=== PATIENT | female | born 1960 | race African-American/Black ===

== ENCOUNTER 2016-09-23 19:33 | Inpatient (IN) | payer MEDICARE, OTHER ==
[~2016-09-23] VITALS: Ht 170.2 cm; Wt 78.7 kg
[~2016-09-23 19:33] MED LIST: ASPI-482 PO; BYSTOLIC20 MG PO; FLUT16SP NS; FLUT1DIS3 INH; FURO-69 PO; LISI10TA2 PO
[2016-09-23] MEDS ORDERED: ALBUTEROL SULFATE 2.5 MG/3 ML NEBU. CONT NEB ONE (19:45)
[2016-09-23] MEDS ORDERED: methylPREDNISolone SOD SUCC PF 125 MG/2 ML VIAL. IV ONE (19:45)
[2016-09-23] MEDS ORDERED: ALBUTEROL SULFATE 2.5 MG/3 ML NEBU. ONE (19:48)
[2016-09-23 19:57] LABS: BASO % 1 % (0-3); EOS % 2 % (0-3); HEMOGLOBIN 8.7 g/dL (12.0-15.5); LYMPH # 0.8 x10^3/uL (1.0-4.8); LYMPH % 13 % (24-48); MEAN CORPUSCULAR HEMOGLOBIN 24 pg (25-35); MEAN CORPUSCULAR HGB CONC 32 g/dL (31-37); MEAN CORPUSCULAR VOLUME 74 fL (79-100); MONO % 18 % (0-9); NEUT % 66 % (31-73); PLATELET COUNT 190 x10^3/uL (140-400); RED BLOOD COUNT 3.67 x10^6/uL (3.50-5.40); RED CELL DISTRIBUTION WIDTH 19.9 % (11.5-14.5); WHITE BLOOD COUNT 6.4 x10^3/uL (4.0-11.0)
[2016-09-23 20:14] LABS: CALCIUM 8.4 mg/dL (8.5-10.1); CREATININE 1.5 mg/dL (0.6-1.0); GFR 43.5; POTASSIUM 3.5 mmol/L (3.5-5.1)
[2016-09-23 20:26] LABS: OBC FLU VALID
[2016-09-23 20:28] LABS: ALBUMIN 3.2 g/dL (3.4-5.0); ALBUMIN/GLOBULIN RATIO 0.7 (1.0-1.7); TOTAL BILIRUBIN 0.5 mg/dL (0.2-1.0); TOTAL PROTEIN 7.9 g/dL (6.4-8.2)
[2016-09-23] MEDS ORDERED: ACETAMINOPHEN 500 MG TABLET PO ONE (20:30)
[2016-09-23 20:43] LABS: % BASOS 1 % (0-3)
[2016-09-23 20:46] LABS: ANISOCYTOSIS SLIGHT; HYPOCHROMIA MOD; MICROCYTOSIS MOD; PLT ESTIMATE ADEQUATE (ADEQUATE); POLYCHROMASIA SLIGHT; TOXIC GRANULATION SLIGHT
--- NOTE | 2016-09-23 20:58 | PHYS DOC ---
Past Medical History Past Medical History: COPD, Hypertension Past Surgical History: Alcohol Use: None Drug Use: None Adult General Chief Complaint Chief Complaint: SHORTNESS OF BREATH HPI HPI Patient is a 56 year old female brought from home by ambulance with the complaint of shortness of air. Patient states she's been short of air yesterday and today. She is on oxygen at home, she states anywhere from 4-10 L depending on her symptoms. She also takes breathing treatments at home. She was given a nebulized treatment in route by EMS. Patient states her cough is about usual for her. She denies chest pain. Review of Systems Review of Systems Constitutional: Denies fever or chills [] Eyes: Denies change in visual acuity, redness, or eye pain [] HENT: Denies nasal congestion or sore throat [] Respiratory: As in history of present illness Cardiovascular: No chest pain GI: Denies abdominal pain, nausea, vomiting, bloody stools or diarrhea [] : Denies dysuria or hematuria [] Musculoskeletal: Denies back pain or joint pain [] Integument: Denies rash or skin lesions [] Neurologic: Denies headache, focal weakness or sensory changes [] Current Medications Current Medications Current Medications Medications (Trade) Dose Ordered Sig/[place] Start Time Stop Time Status Last Admin Dose Admin Acetaminophen 1000 mg 1,000 mg 1X ONCE 09/23/16 20:30 09/23/16 20:31 DC 09/23/16 20:25 1,000 MG Albuterol Sulfate (Ventolin Neb Soln) 10 mg 1X ONCE 09/23/16 19:45 09/23/16 19:50 DC 09/23/16 20:00 10 MG Albuterol/ Ipratropium (Duoneb) 3 ml RTQID 09/24/16 08:00 09/25/16 07:59 Levofloxacin/ Dextrose (LEVAQUIN 750mg PREMIX) 150 ml @ 100 mls/hr 1X ONCE 09/23/16 21:00 09/23/16 22:29 09/23/16 21:16 100 MLS/HR Methylprednisolone Sodium Succinate (Solu-Medrol 125mg Vial) 125 mg 1X ONCE 09/23/16 19:45 09/23/16 19:50 DC 09/23/16 19:59 125 MG Allergies Allergies Allergies Coded Allergies Type Severity Reaction Last Updated Verified No Known Drug Allergies 06/04/14 No Physical Exam Physical Exam Constitutional: 56-year-old female on a nonrebreather mask with a sat in the mid 80s at best on nonrebreather mask. She is tachypneic, but alert, mentating normally HENT: Normocephalic, atraumatic, bilateral external ears normal, nose normal. [] Eyes: conjunctiva normal, no discharge. [] Neck: Normal range of motion, no stridor. [] Cardiovascular:Heart rate regular rhythm, no murmur [] Lungs & Thorax: Moderately decreased breath sounds throughout with prolonged expiratory phase and expiratory wheezes throughout Abdomen: Bowel sounds normal, soft, no tenderness, no masses, no pulsatile masses. [] Skin: Warm, dry, no erythema, no rash. [] Extremities: No tenderness, no cyanosis, no clubbing, ROM intact, no edema. [] Neurologic: Alert and oriented X 3, normal motor function, normal sensory function, no focal deficits noted. [] Current Patient Data Vital Signs Vital Signs Date Time Temp Pulse Resp B/P Pulse Ox O2 Delivery O2 Flow Rate FiO2 09/23/16 19:54 92 NonRebreather Mask 15.0 09/23/16 19:33 103.1 94 30 126/74 103.1 Lab Values Laboratory Tests Test 09/23/16 19:46 09/23/16 20:00 White Blood Count 6.4x10^3/uL (4.0-11.0) Red Blood Count 3.67x10^6/uL (3.50-5.40) Hemoglobin 8.7g/dL (12.0-15.5) L Hematocrit 27.0% (36.0-47.0) L Mean Corpuscular Volume 74fL (79-100) L Mean Corpuscular Hemoglobin 24pg (25-35) L Mean Corpuscular Hemoglobin Concent 32g/dL (31-37) Red Cell Distribution Width 19.9% (11.5-14.5) H Platelet Count 190x10^3/uL (140-400) Neutrophils (%) (Auto) 66% (31-73) Lymphocytes (%) (Auto) 13% (24-48) L Monocytes (%) (Auto) 18% (0-9) H Eosinophils (%) (Auto) 2% (0-3) Basophils (%) (Auto) 1% (0-3) Neutrophils # (Auto) 4.2x10^3uL (1.8-7.7) Lymphocytes # (Auto) 0.8x10^3/uL (1.0-4.8) L Monocytes # (Auto) 1.2x10^3/uL (0.0-1.1) H Eosinophils # (Auto) 0.1x10^3/uL (0.0-0.7) Basophils # (Auto) 0.0x10^3/uL (0.0-0.2) Segmented Neutrophils % 70% (35-66) H Band Neutrophils % 2% (0-9) Lymphocytes % 14% (24-48) L Monocytes % 13% (0-10) H Basophils % 1% (0-3) Toxic Granulation Slight Platelet Estimate Adequate (ADEQUATE) Polychromasia Slight Hypochromasia Mod Anisocytosis Slight Microcytosis Mod Sodium Level 142mmol/L (136-145) Potassium Level 3.5mmol/L (3.5-5.1) Chloride Level 104mmol/L (98-107) Carbon Dioxide Level 26mmol/L (21-32) Anion Gap 12 (6-14) Blood Urea Nitrogen 13mg/dL (7-20) Creatinine 1.5mg/dL (0.6-1.0) H Estimated GFR (Cockcroft-Gault) 43.5 BUN/Creatinine Ratio 9 (6-20) Glucose Level 95mg/dL (70-99) Calcium Level 8.4mg/dL (8.5-10.1) L Total Bilirubin 0.5mg/dL (0.2-1.0) Aspartate Amino Transferase (AST) 12U/L (15-37) L Alanine Aminotransferase (ALT) 11U/L (14-59) L Alkaline Phosphatase 88U/L (46-116) Troponin I Quantitative 0.071ng/mL (0.000-0.055) EA-Lei-M-Type Natriuretic Peptide 1330pg/mL (0-124) H Total Protein 7.9g/dL (6.4-8.2) Albumin 3.2g/dL (3.4-5.0) L Albumin/Globulin Ratio 0.7 (1.0-1.7) L Influenza Type A Antigen Negative (NEGATIVE) Influenza Type B Antigen Negative (NEGATIVE) Laboratory Tests 09/23/16 19:46 Laboratory Tests 09/23/16 19:46 EKG EKG 12-lead EKG read by me. Sinus tachycardia. Heart rate 110. There are no acute ST or T wave changes indicative of ischemia or infarction. No STEMI. 1938 [] Radiology/Procedures Radiology/Procedures One view portable chest x-ray read by me. Bibasilar infiltrates heart size borderline. [] Course & Med Decision Making Course & Med Decision Making Pertinent Labs and Imaging studies reviewed. (See chart for details) 56 showed female with a history of COPD, oxygen dependent at home, presents hypoxic on nonrebreather mask after 1 albuterol treatment by EMS. We started a hour-long continuous nebulized albuterol treatment which she tolerated well. Although she was fairly hypoxic and somewhat dyspneic, she remained alert and mentating normally. In fact, she was making phone calls while taking her continuous neb treatment. Chest x-ray does show bibasilar infiltrates, cultures were done and antibiotics were started. Her troponin is a little elevated, I ordered repeat, but this may be simply strain. She was given IV steroids for COPD exacerbation. I discussed the case with Dr. calhoun, [facility] medicine. He will admit the patient. I wrote bridge orders. [] Dragon Disclaimer Dragon Disclaimer This electronic medical record was generated, in whole or in part, using a voice recognition dictation system. Departure Departure Impression: Primary Impression: Pneumonia Additional Impression: COPD exacerbation Disposition: ADMITTED INPATIENT Admitting Physician: Marah Calhoun Condition: STABLE Referrals: NO PCP (PCP) Problem Qualifiers MAGALYS LR MD Sep 23, 2016 20:58
[2016-09-23 22:22] VITALS: BP 92/44
[2016-09-23] MEDS ORDERED: CARV12.5 PO (22:31)
[2016-09-23] MEDS ORDERED: PROAIR HFA8.5 GM INH (22:31)
[2016-09-23] MEDS ORDERED: PANT40TA5 PO (22:31)
--- NOTE | 2016-09-23 22:40 | PDOC1 ---
History and Physical Date of Admission Date of Admission DATE: 09/23/16 TIME: 22:38 Identification/Chief Complaint Chief Complaint cough, dyspnea Source Source: Chart review, Patient History of Present Illness History of Present Illness Ms Harris, is a 56 year old female brought from home by ambulance with the complaint of shortness of air. Initially thought to have COPD, pt revealed she takes Adempas for Primary PULM HTN. She has been marked dyspneic for 24 hours, about, and does feel improved after interventions in the ER less coughing, sputum diminished, no chest pain, no pleurisy s/p mult nebs given in the ER Past Medical History Cardiovascular: HTN, Hyperlipidemia Pulmonary: No pertinent hx, Other (PULM HTN) CENTRAL NERVOUS SYSTEM: Other GI: No pertinent hx Heme/Onc: No pertinent hx Hepatobiliary: No pertinent hx Psych: No pertinent hx Musculoskeletal: Osteoarthritis Rheumatologic: No pertinent hx Infectious disease: No pertinent hx Renal/: No pertinent hx Endocrine: No pertinent hx Past Surgical History Past Surgical History: Family History Family History: No Significant, Hypertension Social History ALCOHOL: none Drugs: None Current Problem List Problem List Problems Medical Problems: (1) COPD exacerbation Status: Acute (2) Pneumonia Status: Acute Problems: Current Medications Current Medications Current Medications Albuterol Sulfate (Ventolin Neb Soln) 2.5 mg STK-MED ONCE .ROUTE ; Start at 19:48; Stop 09/23/16 at 19:49; Status DC Methylprednisolone Sodium Succinate (Solu-Medrol 125mg Vial) 125 mg 1X ONCE IV Last administered on 09/23/16 19:59; Start 09/23/16 at 19:45; Stop 09/23/16 at 19:50; Status DC Albuterol Sulfate (Ventolin Neb Soln) 10 mg 1X ONCE CONT NEB Last administered on 09/23/16 20:00; Start 09/23/16 at 19:45; Stop 09/23/16 at 19:50; Status DC Acetaminophen 1000 mg 1,000 mg 1X ONCE PO Last administered on 09/23/16 20:25 ; Start 09/23/16 at 20:30; Stop 09/23/16 at 20:31; Status DC Levofloxacin/ Dextrose (LEVAQUIN 750mg PREMIX) 150 ml @ 100 mls/hr 1X ONCE IV Last administered on 2/8/17at 21:16; Start 09/23/16 at 21:00; Stop 09/23/16 at 22:29; Status DC Albuterol/ Ipratropium (Duoneb) 3 ml RTQID NEB ; Start 09/24/16 at 08:00; Stop at 07:59 Active Scripts Active Reported Proair Hfa Inhaler (Albuterol Sulfate) 8.5 Gm Hfa.aer.ad 2 Puff INH PRN DAILY PRN Pantoprazole Sodium 40 Mg Tablet.dr 1 Tab PO DAILY Coreg (Carvedilol) 12.5 Mg Tablet 1 Tab PO BID Aspir 81 (Aspirin) 81 Mg Tablet.dr 81 Mg PO Lasix (Furosemide) 20 Mg Tablet 40 Mg PO DAILY Allergies Allergies: Coded Allergies: No Known Drug Allergies (Unverified , 06/04/14) ROS General: YES: Chills, Fatigue, Malaise, No: Appetite, Night Sweats, Other PSYCHOLOGICAL ROS: No: Anxiety, Behavioral Disorder, Concentration difficultie , Decreased libido, Depression, Disorientation, Hallucinations, Hostility, Irritablity, Memory difficulties, Mood Swings, Obsessive thoughts, Other, Physical abuse, Sexual abuse, Sleep disturbances, Suicidal ideation HEENT: No: Epistaxis, Heacaches, Hearing change, Nasal congestion, Nasal discharge, Oral lesions, Other, Sinus pain, Sneezing, Snoring, Sore Throat, Tinnitus, Vertigo, Visual Changes, Vocal changes Respiratory: YES: Cough, SOB with excertion, Shortness of breath, No: Hemoptysis, Orthopnea, Other, Pleuritic Pain, Sputum Changes, Stridor, Tachypnea, Wheezing Cardiovascular: No Chest Pain, No Edema, No Lt Headedness, No Orthopnea, No Other, No Palpitations, No Paroxysmal Noc. Dyspnea Gastrointestinal: Yes Nausea, No Abdominal Pain, No Constipation, No Diarrhea, No Hematochezia, No Melena, No Other, No Vomiting Genitourinary: No , No , No , No , No , No , No , No Discharge, No Dysuria, No Flank Pain, No Frequency, No Hematuria, No Incontinence, No Other, No Pain, No Retention, No Urgency Musculoskeletal: No Gait Disturbance, No Joint Pain, No Joint Stiffness, No Joint Swelling, No Muscle Pain, No Muscular Weakness, No Other, No Pain In:, No Swelling In: Neurological: No Behavorial Changes, No Bowel/Bladder ControlChng, No Confusion , No Dizziness, No Gait Disturbance, No Headaches, No Impaired Coord/balance, No Memory Loss, No Numbness/Tingling, No Other, No Seizures, No Speech Problems , No Tremors, No Visual Changes, No Weakness Skin: No Acne, No Dry Skin, No Eczema, No Hair Changes, No Lumps, No Mole Changes, No Mottling, No Nail Changes, No Other, No Pruritus, No Rash, No Skin Lesion Changes Physical Exam General: Alert, Oriented X3, Cooperative HEENT: Atraumatic, PERRLA Lungs: Other (low air movement, ) Abdomen: Normal bowel sounds, Soft Rectal Exam: not examined Extremities: No clubbing, No edema, Normal pulses Skin: No rashes, No breakdown, No significant lesion Neuro: Normal speech, Normal tone, Sensation intact, Cranial nerves 3-12 NL Psych/Mental Status: Mood NL Vitals Vitals Vital Signs Date Time Temp Pulse Resp B/P Pulse Ox O2 Delivery O2 Flow Rate FiO2 09/23/16 22:22 99.3 86 24 92/44 90 Venturi Mask 10.0 99.3 Labs Labs Laboratory Tests Test 09/23/16 19:46 09/23/16 20:00 White Blood Count 6.4x10^3/uL (4.0-11.0) Red Blood Count 3.67x10^6/uL (3.50-5.40) Hemoglobin 8.7g/dL (12.0-15.5) Hematocrit 27.0% (36.0-47.0) Mean Corpuscular Volume 74fL (79-100) Mean Corpuscular Hemoglobin 24pg (25-35) Mean Corpuscular Hemoglobin Concent 32g/dL (31-37) Red Cell Distribution Width 19.9% (11.5-14.5) Platelet Count 190x10^3/uL (140-400) Neutrophils (%) (Auto) 66% (31-73) Lymphocytes (%) (Auto) 13% (24-48) Monocytes (%) (Auto) 18% (0-9) Eosinophils (%) (Auto) 2% (0-3) Basophils (%) (Auto) 1% (0-3) Neutrophils # (Auto) 4.2x10^3uL (1.8-7.7) Lymphocytes # (Auto) 0.8x10^3/uL (1.0-4.8) Monocytes # (Auto) 1.2x10^3/uL (0.0-1.1) Eosinophils # (Auto) 0.1x10^3/uL (0.0-0.7) Basophils # (Auto) 0.0x10^3/uL (0.0-0.2) Segmented Neutrophils % 70% (35-66) Band Neutrophils % 2% (0-9) Lymphocytes % 14% (24-48) Monocytes % 13% (0-10) Basophils % 1% (0-3) Toxic Granulation Slight Platelet Estimate Adequate (ADEQUATE) Polychromasia Slight Hypochromasia Mod Anisocytosis Slight Microcytosis Mod Sodium Level 142mmol/L (136-145) Potassium Level 3.5mmol/L (3.5-5.1) Chloride Level 104mmol/L (98-107) Carbon Dioxide Level 26mmol/L (21-32) Anion Gap 12 (6-14) Blood Urea Nitrogen 13mg/dL (7-20) Creatinine 1.5mg/dL (0.6-1.0) Estimated GFR (Cockcroft-Gault) 43.5 BUN/Creatinine Ratio 9 (6-20) Glucose Level 95mg/dL (70-99) Calcium Level 8.4mg/dL (8.5-10.1) Total Bilirubin 0.5mg/dL (0.2-1.0) Aspartate Amino Transf (AST/SGOT) 12U/L (15-37) Alanine Aminotransferase (ALT/SGPT) 11U/L (14-59) Alkaline Phosphatase 88U/L (46-116) Troponin I Quantitative 0.071ng/mL (0.000-0.055) OV-Iep-O-Type Natriuretic Peptide 1330pg/mL (0-124) Total Protein 7.9g/dL (6.4-8.2) Albumin 3.2g/dL (3.4-5.0) Albumin/Globulin Ratio 0.7 (1.0-1.7) Influenza Type A Antigen Negative (NEGATIVE) Influenza Type B Antigen Negative (NEGATIVE) Laboratory Tests Test 09/23/16 19:46 09/23/16 20:00 White Blood Count 6.4x10^3/uL (4.0-11.0) Red Blood Count 3.67x10^6/uL (3.50-5.40) Hemoglobin 8.7g/dL (12.0-15.5) Hematocrit 27.0% (36.0-47.0) Mean Corpuscular Volume 74fL (79-100) Mean Corpuscular Hemoglobin 24pg (25-35) Mean Corpuscular Hemoglobin Concent 32g/dL (31-37) Red Cell Distribution Width 19.9% (11.5-14.5) Platelet Count 190x10^3/uL (140-400) Neutrophils (%) (Auto) 66% (31-73) Lymphocytes (%) (Auto) 13% (24-48) Monocytes (%) (Auto) 18% (0-9) Eosinophils (%) (Auto) 2% (0-3) Basophils (%) (Auto) 1% (0-3) Neutrophils # (Auto) 4.2x10^3uL (1.8-7.7) Lymphocytes # (Auto) 0.8x10^3/uL (1.0-4.8) Monocytes # (Auto) 1.2x10^3/uL (0.0-1.1) Eosinophils # (Auto) 0.1x10^3/uL (0.0-0.7) Basophils # (Auto) 0.0x10^3/uL (0.0-0.2) Segmented Neutrophils % 70% (35-66) Band Neutrophils % 2% (0-9) Lymphocytes % 14% (24-48) Monocytes % 13% (0-10) Basophils % 1% (0-3) Toxic Granulation Slight Platelet Estimate Adequate (ADEQUATE) Polychromasia Slight Hypochromasia Mod Anisocytosis Slight Microcytosis Mod Sodium Level 142mmol/L (136-145) Potassium Level 3.5mmol/L (3.5-5.1) Chloride Level 104mmol/L (98-107) Carbon Dioxide Level 26mmol/L (21-32) Anion Gap 12 (6-14) Blood Urea Nitrogen 13mg/dL (7-20) Creatinine 1.5mg/dL (0.6-1.0) Estimated GFR (Cockcroft-Gault) 43.5 BUN/Creatinine Ratio 9 (6-20) Glucose Level 95mg/dL (70-99) Calcium Level 8.4mg/dL (8.5-10.1) Total Bilirubin 0.5mg/dL (0.2-1.0) Aspartate Amino Transf (AST/SGOT) 12U/L (15-37) Alanine Aminotransferase (ALT/SGPT) 11U/L (14-59) Alkaline Phosphatase 88U/L (46-116) Troponin I Quantitative 0.071ng/mL (0.000-0.055) GC-Twj-I-Type Natriuretic Peptide 1330pg/mL (0-124) Total Protein 7.9g/dL (6.4-8.2) Albumin 3.2g/dL (3.4-5.0) Albumin/Globulin Ratio 0.7 (1.0-1.7) Influenza Type A Antigen Negative (NEGATIVE) Influenza Type B Antigen Negative (NEGATIVE) VTE Prophylaxis Ordered VTE Prophylaxis Devices: No VTE Pharmacological Prophylaxi: Yes Assessment/Plan Assessment/Plan acute respiratory distress on chronic hypoxic pulm failure bibasilar infiltrates, treat as Pneumonia, Levaquin sepsis PRIMARY Pulm htn, consult Dr. Machado, chronic hypoxic 4-10 liters baseline. Pt Takes Adempas TID and Luteris daily, we do not have these meds, discussed with pharmacy, will ask Dr. Machado opinion on treatment, pt will be able to provide her meds in the AM CHF, chronic diastolic failure, troponinemia, recheck with lipids, consult Cardiology team mild malnutrition CKD 3 anemia of CKD, microcytic, check iron level Admit LEON KOCH MD Sep 23, 2016 22:40
[2016-09-23] MEDS ORDERED: POTASSIUM CHLORIDE 20 MEQ TABLET.ER. PO ONE (23:00)
[2016-09-24] VITALS (16 sets, daily range): BP systolic 81–132; BP diastolic 48–73
[2016-09-24] MEDS: SILDENAFIL CITRATE 20 MG TABLET. PO SCH ×3 (00:22→14:00)
[2016-09-24] MEDS: ASPIRIN ENTERIC COATED 81 MG TABLET.DR. PO SCH ×2 (00:22→09:57)
[2016-09-24] MEDS: IV NORMAL SALINE 1000ML BAG 1,000 ML IV SCH ×3 (00:53→04:34)
--- NOTE | 2016-09-24 00:57 | ACF ---
Admission Forms Criteria COPD Clinical Indications for Admission to Inpatient Care (Place 'X' for any and all applicable criteria): Admission is indicated for ANY ONE of the following (1)(2)(3): [X]I. Acute exacerbation by high-risk comorbidity (e.g., pneumonia, dysrhythmia, heart failure, pleural effusion, pneumothorax) or severe underlying COPD (e.g., steroid dependent) [ ]II. Inpatient admission required rather than observation care (see Chronic Obstructive Pulmonary Disease: Observation Care) because of ANY ONE of the following: [ ]a) New or pre-existing signs or symptoms of COPD (eg, dyspnea or Tachypnea at rest or with minimal activity) that persist despite outpatient and observation care treatment [ ]b) New-onset hypoxemia (room air SaO2 less than 90%, PO2 less than 60 mm Hg (8.0 kPa)) that persists despite outpatient and observation care treatment [ ]c) Worsening of pre-existing hypoxemia (eg, new or increased requirement for supplemental oxygen to maintain oxygenation at baseline level) that persists despite outpatient and observation care treatment, with oxygen treatment needs performable only in acute inpatient setting [ ]d) Hypercarbia (PCO2 greater than 40 mm Hg (5.3 kPa))-induced respiratory acidosis (pH less than 7.35) that persists despite outpatient and observation care treatment [ ]e) Supplemental oxygen or respiratory treatments for over 24 hours that are performable only in acute inpatient setting [ ]f) Chest tube placement with active evacuation (e.g., suction, drainage) (5) [ ]g) Other condition, treatment or monitoring requiring inpatient admission [ ]III. Planned invasive surgical or diagnostic procedures requiring acute- care hospitalization [ ]IV. Acute respiratory failure (e.g., uncompensated hypercarbia, severe hypoxemia) [ ]V. Severe comorbid condition (e.g., severe steroid myopathy, acute vertebral fracture) that has acutely worsened pulmonary function [ ]. Confusion state, lethargy, obtundation, stupor or coma Extended stay beyond goal length of stay may be needed for (31)(32): [ ]a ) Respiratory Failure. [ ]b) Severe or persisting hypoxemia or hypercarbia [ ]c) Severe or persistent dyspnea [ ]d) Comorbidities (e.g. chronic heart failure, atrial fibrillation with rapid response, pneumonia) [ ]e) Malnutrition The original [facility] content created by [facility] has been revised. The portions of the content which have been revised are identified through the use of italic text or in bold, and [facility] has neither reviewed nor approved the modified material. All other unmodified content is copyright [facility]. Please see references footnoted in the original [facility] edition 2016 Admission Criteria Met?: Yes UDAY ZULUAGA Sep 24, 2016 00:57
[2016-09-24] MEDS ORDERED: INFLUENZA VAX SCREEN BY RX. MC ONE (01:30)
[2016-09-24] MEDS ORDERED: PNEUMOCOCCAL VAX SCREEN BY RX. MC ONE (01:30)
[2016-09-24] MEDS: LEVOFLOXACIN 750 MG TABLET. PO SCH (05:47)
--- NOTE | 2016-09-24 06:25 | EKG ---
[facility] [address] [place] [address] Test Date: 2016-09-23 Test Time: 19:38:47 Pat Name: MARY LAWRENCE Department: Room: [facility] Gender: F Results Technician: : 1960 Requested By: MAGALYS LR Order Number: [id number] Reading MD: Valentina Bains Measurements Intervals Cut Off Rate: 110 P: 43 [place]: 150 QRS: 90 QRSD: 94 T: 52 QT: 346 QTc: 474 Interpretive Statements SINUS TACHYCARDIA LEFT ATRIAL ABNORMALITY ABNORMAL ECG Electronically Signed On 09-27-2016 15:40:50 AIRPLANE TECHNICIAN by Valentina Bains
[2016-09-24] MEDS: ALBUTEROL SULFATE 2.5 MG/3 ML NEBU. NEB PRN (06:48)
[2016-09-24 07:03] LABS: HCO3 ABG 23 mmol/L (21-28); SAT O2 ABG 80 % (92-99)
[2016-09-24 07:04] LABS: PCO2 ABG 41 mmHg (35-46); PH ABG 7.36 (7.35-7.45); PO2 ABG 51 mmHg (75-108)
[2016-09-24] MEDS ORDERED: IV NORMAL SALINE 500ML BAG 500 ML IV ONE ×2 (07:30→10:00)
[2016-09-24] MEDS: BUDESONIDE 0.5 MG/2 ML NEBU NEB SCH ×2 (07:31→19:49)
[2016-09-24 07:48] LABS: BASO % 0 % (0-3); EOS % 0 % (0-3); HEMATOCRIT 26.2 % (36.0-47.0); LYMPH # 0.5 x10^3/uL (1.0-4.8); LYMPH % 11 % (24-48); MEAN CORPUSCULAR HEMOGLOBIN 23 pg (25-35); MEAN CORPUSCULAR HGB CONC 31 g/dL (31-37); MEAN CORPUSCULAR VOLUME 75 fL (79-100); MONO % 2 % (0-9); NEUT % 87 % (31-73); PLATELET COUNT 179 x10^3/uL (140-400); RED CELL DISTRIBUTION WIDTH 19.9 % (11.5-14.5); WHITE BLOOD COUNT 4.7 x10^3/uL (4.0-11.0)
--- NOTE | 2016-09-24 07:50 | RAD ---
Portable AP upright view CXR: Clinical indications: Shortness of air. COPD and hypertension. Comparison: October 06, 2007 and June 04, 2014.. Findings: An old granuloma of the right lateral lung base is seen which is stable. There is a new finding of bibasilar lung infiltrates denser on the left side. No pleural effusion or pneumothorax is seen. Heart size and mediastinum are stable. Impression: Bibasilar lung infiltrates..
[2016-09-24] MEDS ORDERED: IPRATRPIUM/ALBUTEROL 0.5/2.5MG 3 ML NEBU. NEB SCH (08:00)
[2016-09-24] MEDS: CARVEDILOL 12.5 MG TABLET PO SCH ×2 (08:00→17:00)
[2016-09-24 08:28] LABS: % SAT IRON 5 % (15-34); ALBUMIN 2.8 g/dL (3.4-5.0); ALBUMIN/GLOBULIN RATIO 0.7 (1.0-1.7); CALCIUM 7.9 mg/dL (8.5-10.1); CREATININE 1.2 mg/dL (0.6-1.0); GFR 56.2; IRON,SERUM 13 ug/dL (50-170); POTASSIUM 4.1 mmol/L (3.5-5.1); TOTAL BILIRUBIN 0.3 mg/dL (0.2-1.0); TOTAL PROTEIN 6.6 g/dL (6.4-8.2)
[2016-09-24 08:33] LABS: CHOLESTEROL/HDL RATIO 3.7
[2016-09-24] MEDS ORDERED: FLU VACC QUAD 2016-17 (36MOS+)/PF 0.5 ML SYRINGE. VAX IM ONE (09:00)
[2016-09-24] MEDS ORDERED: PNEUMOC CONJ VACC 23-VALENT 0.5 ML VIAL. VAX IM ONE (09:00)
[2016-09-24] MEDS ORDERED: FUROSEMIDE 40 MG TABLET PO SCH (09:00)
[2016-09-24] MEDS: LETAIRIS 10 MG PO SCH (09:00)
[2016-09-24] MEDS: PREDNISONE 20 MG TABLET PO SCH (09:57)
[2016-09-24] MEDS: PANTOPRAZOLE 40 MG TABLET. PO SCH (09:58)
[2016-09-24] MEDS: IPRATRPIUM/ALBUTEROL 0.5/2.5MG 3 ML NEBU. NEB SCH ×3 (10:49→19:49)
--- NOTE | 2016-09-24 10:56 | CONS ---
DATE OF CONSULTATION: ATTENDING PHYSICIAN: Dr. Marah Huerta. REASON FOR CONSULTATION: Respiratory failure. HISTORY OF PRESENT ILLNESS: The patient is a 56-year-old female who is obese and has been followed at for primary pulmonary hypertension. She takes medicine ____ Adempas and also on Letairis. The patient was brought into the hospital with progressive dyspnea for the last 24 hours. She also had contact with sick family members. She had mild cough. No chest pains. No leg edema. The patient had a fever of 103 on admission. Chest x-ray showed diffuse interstitial infiltrates, mostly in the lower lobes. There is evidence of pulmonary hypertension. Her influenza screen was negative. She has no history of sleep apnea. No history of thromboembolic disease. She does not know whether she has a diagnosis of interstitial lung disease or any connective tissue disease. I am awaiting for records from . PAST MEDICAL HISTORY: History of hypertension and hyperlipidemia. Primary pulmonary hypertension, osteoarthritis. PAST SURGICAL HISTORY: . FAMILY HISTORY: Noncontributory to lungs. ALLERGIES: None. MEDICATIONS: Reviewed as listed in the MRAD. REVIEW OF SYSTEMS: Twelve-point system obtained. Pertinent positives discussed in my history of present illness, otherwise noncontributory. All systems that were negative were reviewed as well. PHYSICAL EXAMINATION: GENERAL: She is comfortable. VITAL SIGNS: Blood pressure of 102 systolic and has been running low in the 90s. Her T-max was 103.1, pulse ox is 94% on 50% BiPAP. HEENT: Sclerae nonicteric. NECK: Supple. LUNGS: Diminished breath sounds. CARDIOVASCULAR: Regular rate ____. ABDOMEN: Soft, nontender. EXTREMITIES: With no pitting edema. LABORATORY DATA: Reviewed. Her ABG showed a pH of 7.36, pCO2 of 41 and a pO2 of 51 when she was immediately placed on ____ 100% nonrebreather mask not on BiPAP. White cell count ____, hemoglobin 8.0 and platelets are 179. BUN 15, creatinine 1.2. IMPRESSION: 1. Acute on chronic hypoxic respiratory failure in a patient normally is on 4 liters of oxygen for primary pulmonary hypertension for which she is followed at . Now comes in with fever, progressive dyspnea and bilateral interstitial infiltrates involving the lower lobe. Most likely this is related to viral pneumonitis. Influenza screen is negative. 2. Mild hypotension may be related to dehydration. 3. History of primary pulmonary hypertension being followed at . She takes Letairis and Adempas. I do not have records available from regarding the workup for primary pulmonary hypertension and the etiology. We will continue with her home pulmonary vasodilators, hold if blood pressure remains low. 4. Minimal history of tobacco use. RECOMMENDATIONS: 1. Continue present DuoNebs. 2. Would hold off on Lasix. 3. Continue empiric antibiotic. 4. Continue oral steroids. 5. Continue BiPAP and gradually wean FIO2 to keep sats 92-94%. 6. Continue pulmonary vasodilators. 7. Monitor blood pressure closely. 8. DVT prophylaxis with Lovenox. 9. Obtain records from . 10. Ct chest w/o contrast and echo 10. Discussed with RN and RT. We will follow along with you. Critical care time 40 minutes. LAZ BARON MD DR: JENNIFER/mary JOB#: [id number] / [id number] KEITH
--- NOTE | 2016-09-24 10:57 | PDOC2 ---
JAVIER GARIBAY RIVET BUCKER 09/24/16 1056: CARDIAC CONSULT DATE OF CONSULT Date of Consult DATE: 09/24/16 TIME: 10:50 REASON FOR CONSULT Reason for Consult: troponinemia REFERRING PHYSICIAN Referring Physician: Dr. Huerta SOURCE Source: Chart review, Patient HISTORY OF PRESENT ILLNESS HISTORY OF PRESENT ILLNESS This is a 56 yo female, with a h/o COPD and pulmonary hypertension, who presented with complaints of shortness of breath. Patient reports she developed nasal congestion, non-productive cough, and shortness of air approximately two days ago. Shortness of breath progressively worsened so patient came in for further evaluation/treatment. Patient denies any chest pain, palpitations, dizziness, diaphoresis, or nausea/vomiting. 103 fever upon admission. Follows closely with cafeteria operator at . Reports compliance with medications. Chronic O2 use; 4-6 liters. Has recently required 6-8 L. Now on BiPAP. Prior MPI in 2013 with no evidence of ischemia. PAST MEDICAL HISTORY Cardiovascular: HTN Pulmonary: COPD, Other (pulmonary HTN) GI: No pertinent hx Heme/Onc: No pertinent hx Psych: Anxiety, Depression Musculoskeletal: Osteoarthritis Rheumatologic: No pertinent hx Infectious disease: No pertinent hx ENT: No pertinent hx Renal/: No pertinent hx Endocrine: No pertinent hx Dermatology: No pertinent hx PAST SURGICAL HISTORY Past Surgical History: No pertinent history FAMILY HISTORY Family History: Hypertension SOCIAL HISTORY Smoke: No ALCOHOL: none Drugs: None Lives: Alone CURRENT MEDICATIONS CURRENT MEDICATIONS Current Medications Medications (Trade) Dose Ordered Sig/[place] Route PRN Reason Start Time Stop Time Status Last Admin Dose Admin Methylprednisolone Sodium Succinate (Solu-Medrol 125mg Vial) 125 mg 1X ONCE IV 09/23/16 19:45 09/23/16 19:50 DC 09/23/16 19:59 Albuterol Sulfate (Ventolin Neb Soln) 10 mg 1X ONCE CONT NEB 09/23/16 19:45 09/23/16 19:50 DC 09/23/16 20:00 Acetaminophen 1000 mg 1,000 mg 1X ONCE PO 09/23/16 20:30 09/23/16 20:31 DC 09/23/16 20:25 Levofloxacin/ Dextrose (LEVAQUIN 750mg PREMIX) 150 ml @ 100 mls/hr 1X ONCE IV 09/23/16 21:00 09/23/16 22:29 DC 09/23/16 21:16 Albuterol/ Ipratropium (Duoneb) 3 ml Q4HRS W/A NEB 09/24/16 10:00 09/24/16 10:49 Albuterol Sulfate (Ventolin Neb Soln) 2.5 mg PRN QID PRN NEB dyspnea 09/23/16 22:45 09/24/16 06:48 Budesonide (Pulmicort) 0.5 mg RTBID NEB 09/24/16 08:00 09/24/16 07:31 Prednisone (Prednisone) 60 mg DAILY08 PO 09/24/16 08:00 09/24/16 09:57 Levofloxacin (Levaquin) 750 mg DAILY06 PO 09/24/16 06:00 09/24/16 05:47 Aspirin (Ecotrin) 324 mg DAILY PO 09/23/16 22:45 09/24/16 09:57 Pantoprazole Sodium (Protonix) 40 mg DAILYAC PO 09/24/16 07:30 09/24/16 09:58 Potassium Chloride (Klor-Con) 20 meq 1X ONCE PO 09/23/16 23:00 09/23/16 23:01 DC 09/24/16 00:22 Sildenafil Citrate 20 mg 20 mg TID PO 09/23/16 23:30 09/24/16 14:00 09/24/16 00:22 Sodium Chloride 1,000 ml @ 592.5 mls/ hr Q1H42M IV 09/24/16 00:30 09/24/16 04:29 DC 09/24/16 04:34 Sodium Chloride (Iv Sodium Chloride 0.9% 500ml Bag) 500 ml @ 500 mls/hr 1X ONCE IV 09/24/16 07:30 09/24/16 08:29 DC 09/24/16 07:45 ALLERGIES ALLERGIES: Coded Allergies: No Known Drug Allergies (Unverified , 06/04/14) ROS Review of System 14 point ROS conducted with pertinent positives noted above in HPI PHYSICAL EXAM General: Alert, Oriented X3, Cooperative, mild distress HEENT: Atraumatic, Mucous membr. moist/pink Lungs: Other (expiratroy wheezes, diminished bases ) Heart: Regular rate, Normal S1, Normal S2, Other (heart tones difficutly to appreciate) Abdomen: Soft, No tenderness Extremities: Normal pulses, Other (trace LE edema ) Skin: No breakdown, No significant lesion Neuro: Normal speech, Sensation intact Psych/Mental Status: Mental status NL, Mood NL MUSCULOSKELETAL: Full range of motion without pain VITALS VITALS Vital Signs Date Time Temp Pulse Resp B/P Pulse Ox O2 Delivery O2 Flow Rate FiO2 09/24/16 09:00 104/64 09/24/16 08:24 94 BiPAP/CPAP 09/24/16 07:00 96.6 63 24 96.6 09/24/16 03:35 10.0 LABS Lab: Laboratory Tests Test 09/23/16 19:46 09/23/16 20:00 09/24/16 06:50 09/24/16 07:30 White Blood Count 6.4x10^3/uL (4.0-11.0) 4.7x10^3/uL (4.0-11.0) Red Blood Count 3.67x10^6/uL (3.50-5.40) 3.50x10^6/uL (3.50-5.40) Hemoglobin 8.7g/dL (12.0-15.5) 8.0g/dL (12.0-15.5) Hematocrit 27.0% (36.0-47.0) 26.2% (36.0-47.0) Mean Corpuscular Volume 74fL (79-100) 75fL (79-100) Mean Corpuscular Hemoglobin 24pg (25-35) 23pg (25-35) Mean Corpuscular Hemoglobin Concent 32g/dL (31-37) 31g/dL (31-37) Red Cell Distribution Width 19.9% (11.5-14.5) 19.9% (11.5-14.5) Platelet Count 190x10^3/uL (140-400) 179x10^3/uL (140-400) Neutrophils (%) (Auto) 66% (31-73) 87% (31-73) Lymphocytes (%) (Auto) 13% (24-48) 11% (24-48) Monocytes (%) (Auto) 18% (0-9) 2% (0-9) Eosinophils (%) (Auto) 2% (0-3) 0% (0-3) Basophils (%) (Auto) 1% (0-3) 0% (0-3) Neutrophils # (Auto) 4.2x10^3uL (1.8-7.7) 4.0x10^3uL (1.8-7.7) Lymphocytes # (Auto) 0.8x10^3/uL (1.0-4.8) 0.5x10^3/uL (1.0-4.8) Monocytes # (Auto) 1.2x10^3/uL (0.0-1.1) 0.1x10^3/uL (0.0-1.1) Eosinophils # (Auto) 0.1x10^3/uL (0.0-0.7) 0.0x10^3/uL (0.0-0.7) Basophils # (Auto) 0.0x10^3/uL (0.0-0.2) 0.0x10^3/uL (0.0-0.2) Segmented Neutrophils % 70% (35-66) Band Neutrophils % 2% (0-9) Lymphocytes % 14% (24-48) Monocytes % 13% (0-10) Basophils % 1% (0-3) Toxic Granulation Slight Platelet Estimate Adequate (ADEQUATE) Polychromasia Slight Hypochromasia Mod Anisocytosis Slight Microcytosis Mod Sodium Level 142mmol/L (136-145) 143mmol/L (136-145) Potassium Level 3.5mmol/L (3.5-5.1) 4.1mmol/L (3.5-5.1) Chloride Level 104mmol/L (98-107) 107mmol/L (98-107) Carbon Dioxide Level 26mmol/L (21-32) 24mmol/L (21-32) Anion Gap 12 (6-14) 12 (6-14) Blood Urea Nitrogen 13mg/dL (7-20) 15mg/dL (7-20) Creatinine 1.5mg/dL (0.6-1.0) 1.2mg/dL (0.6-1.0) Estimated GFR (Cockcroft-Gault) 43.5 56.2 BUN/Creatinine Ratio 9 (6-20) 13 (6-20) Glucose Level 95mg/dL (70-99) 131mg/dL (70-99) Calcium Level 8.4mg/dL (8.5-10.1) 7.9mg/dL (8.5-10.1) Total Bilirubin 0.5mg/dL (0.2-1.0) 0.3mg/dL (0.2-1.0) Aspartate Amino Transf (AST/SGOT) 12U/L (15-37) 11U/L (15-37) Alanine Aminotransferase (ALT/SGPT) 11U/L (14-59) 11U/L (14-59) Alkaline Phosphatase 88U/L (46-116) 80U/L (46-116) Troponin I Quantitative 0.071ng/mL (0.000-0.055) 0.260ng/mL (0.000-0.055) KU-Keg-[id number]-Type Natriuretic Peptide 1330pg/mL (0-124) Total Protein 7.9g/dL (6.4-8.2) 6.6g/dL (6.4-8.2) Albumin 3.2g/dL (3.4-5.0) 2.8g/dL (3.4-5.0) Albumin/Globulin Ratio 0.7 (1.0-1.7) 0.7 (1.0-1.7) Influenza Type A Antigen Negative (NEGATIVE) Influenza Type B Antigen Negative (NEGATIVE) O2 Saturation 80% (92-99) Arterial Blood pH 7.36 (7.35-7.45) Arterial Blood pH (Temp corrected) Arterial Blood pCO2 at Patient Temp 41mmHg (35-46) Arterial Blood pCO2 (Temp correct) mmHg Arterial Blood pO2 at Patient Temp 51mmHg (75-108) Arterial Blood pO2 (Temp corrected) mmHg Arterial Blood HCO3 23mmol/L (21-28) Arterial Blood Base Excess -3mmol/L (-3-3) FiO2 100.0 Magnesium Level 2.0mg/dL (1.8-2.4) Iron Level 13ug/dL (50-170) Total Iron Binding Capacity 268ug/dL (250-450) Iron Saturation 5% (15-34) Triglycerides Level 46mg/dL (0-150) Cholesterol Level 86mg/dL (0-200) LDL Cholesterol, Calculated 54mg/dL (0-100) VLDL Cholesterol, Calculated 9mg/dL (0-40) HDL Cholesterol 23mg/dL (40-60) Cholesterol/HDL Ratio 3.7 Test 09/24/16 09:30 Lactic Acid Level 0.8mmol/L (0.4-2.0) STRESS TEST STRESS TEST Conclusion 1. No evidence of significant ischemia or previous myocardial infarction appreciated. 2. Ejection fraction calculated to be 71% with normal wall motion on gated SPECT images. 3. Normal nuclear imaging scan. DATE: 06/05/14 1509 ASSESSMENT/PLAN ASSESSMENT/PLAN 1. Elevated troponin 2. Acute on chronic hypoxic respiratory failure 3. AECOPD 4. Pulmonary hypertension 5. bilateral infiltrates- ? viral pneumonitis 6. Hypertension 7. Febrile Recommendations Suspect mild troponin elevation is demand mediated in the setting of hypoxia and febrile illness from a pneumonia or viral pneumonitis. Will check echo for LV function/presence of WMA and assess pul HTN Trend enzymes. Hold antiHTN as warranted. Continued management of respiratory failure per pulmonary Problems: ANN ASHFORD MD 09/24/16 2300: CARDIAC CONSULT ALLERGIES ALLERGIES: Coded Allergies: No Known Drug Allergies (Unverified , 06/04/14) ASSESSMENT/PLAN ASSESSMENT/PLAN Pt. seen and examined. Agree with above PRIOR AUTHORIZATION TECHNICIAN note. 56 y.o woman presenting with fevers, cough, dyspnea. On exam she does not appear to be in decompensated HF Trop likely elevated in the setting of known PPHTN Echo reviewed. Supportive care from CV perspective. Will follow along closely. Thanks for consultation. Problems: JAVIER GARIBAY APRN Sep 24, 2016 10:56 ANN ASHFORD MD Sep 24, 2016 23:00
--- NOTE | 2016-09-24 11:10 | PDOC ---
PROGRESS NOTES Chief Complaint Chief Complaint 1. Acute Respiratory Distress on Chronic Hypoxic Failure 2. COPD 3. Pulmonary HTN 4. HTN 5. Hyperlipidemia 6. CHF 7. CKD 3 8. Anemia of Chronic Disease 9. Troponinemia History of Present Illness History of Present Illness Pt was seen in room 662 this AM prior to transfer to the ICU. The pt still complaining of SOB at this time even with the BIPAP in place. She does state that her breathing has improved some since admission. She was also complaining of a cough this morning. [facility] Team- The pt is still having desaturations and BP shows some hypotensive episodes at times. Healthcare team agrees that pt is critically ill at this time and will benefit from being transferred to the ICU for close monitoring. Vitals Vitals Vital Signs Date Time Temp Pulse Resp B/P Pulse Ox O2 Delivery O2 Flow Rate FiO2 09/24/16 09:00 104/64 09/24/16 08:24 94 BiPAP/CPAP 09/24/16 07:00 96.6 63 24 96.6 09/24/16 03:35 10.0 Physical Exam General: Alert, Oriented X3, Cooperative, mild distress Lungs: Crackles, Other (Diminished Breath Sounds) Abdomen: Normal bowel sounds, Soft, No tenderness Extremities: No clubbing, No edema, Normal pulses Skin: No rashes, No breakdown, No significant lesion Labs LABS Laboratory Tests Test 09/23/16 19:46 09/23/16 20:00 09/24/16 06:50 09/24/16 07:30 White Blood Count 6.4x10^3/uL (4.0-11.0) 4.7x10^3/uL (4.0-11.0) Red Blood Count 3.67x10^6/uL (3.50-5.40) 3.50x10^6/uL (3.50-5.40) Hemoglobin 8.7g/dL (12.0-15.5) 8.0g/dL (12.0-15.5) Hematocrit 27.0% (36.0-47.0) 26.2% (36.0-47.0) Mean Corpuscular Volume 74fL (79-100) 75fL (79-100) Mean Corpuscular Hemoglobin 24pg (25-35) 23pg (25-35) Mean Corpuscular Hemoglobin Concent 32g/dL (31-37) 31g/dL (31-37) Red Cell Distribution Width 19.9% (11.5-14.5) 19.9% (11.5-14.5) Platelet Count 190x10^3/uL (140-400) 179x10^3/uL (140-400) Neutrophils (%) (Auto) 66% (31-73) 87% (31-73) Lymphocytes (%) (Auto) 13% (24-48) 11% (24-48) Monocytes (%) (Auto) 18% (0-9) 2% (0-9) Eosinophils (%) (Auto) 2% (0-3) 0% (0-3) Basophils (%) (Auto) 1% (0-3) 0% (0-3) Neutrophils # (Auto) 4.2x10^3uL (1.8-7.7) 4.0x10^3uL (1.8-7.7) Lymphocytes # (Auto) 0.8x10^3/uL (1.0-4.8) 0.5x10^3/uL (1.0-4.8) Monocytes # (Auto) 1.2x10^3/uL (0.0-1.1) 0.1x10^3/uL (0.0-1.1) Eosinophils # (Auto) 0.1x10^3/uL (0.0-0.7) 0.0x10^3/uL (0.0-0.7) Basophils # (Auto) 0.0x10^3/uL (0.0-0.2) 0.0x10^3/uL (0.0-0.2) Segmented Neutrophils % 70% (35-66) Band Neutrophils % 2% (0-9) Lymphocytes % 14% (24-48) Monocytes % 13% (0-10) Basophils % 1% (0-3) Toxic Granulation Slight Platelet Estimate Adequate (ADEQUATE) Polychromasia Slight Hypochromasia Mod Anisocytosis Slight Microcytosis Mod Sodium Level 142mmol/L (136-145) 143mmol/L (136-145) Potassium Level 3.5mmol/L (3.5-5.1) 4.1mmol/L (3.5-5.1) Chloride Level 104mmol/L (98-107) 107mmol/L (98-107) Carbon Dioxide Level 26mmol/L (21-32) 24mmol/L (21-32) Anion Gap 12 (6-14) 12 (6-14) Blood Urea Nitrogen 13mg/dL (7-20) 15mg/dL (7-20) Creatinine 1.5mg/dL (0.6-1.0) 1.2mg/dL (0.6-1.0) Estimated GFR (Cockcroft-Gault) 43.5 56.2 BUN/Creatinine Ratio 9 (6-20) 13 (6-20) Glucose Level 95mg/dL (70-99) 131mg/dL (70-99) Calcium Level 8.4mg/dL (8.5-10.1) 7.9mg/dL (8.5-10.1) Total Bilirubin 0.5mg/dL (0.2-1.0) 0.3mg/dL (0.2-1.0) Aspartate Amino Transf (AST/SGOT) 12U/L (15-37) 11U/L (15-37) Alanine Aminotransferase (ALT/SGPT) 11U/L (14-59) 11U/L (14-59) Alkaline Phosphatase 88U/L (46-116) 80U/L (46-116) Troponin I Quantitative 0.071ng/mL (0.000-0.055) 0.260ng/mL (0.000-0.055) RP-Bxs-P-Type Natriuretic Peptide 1330pg/mL (0-124) Total Protein 7.9g/dL (6.4-8.2) 6.6g/dL (6.4-8.2) Albumin 3.2g/dL (3.4-5.0) 2.8g/dL (3.4-5.0) Albumin/Globulin Ratio 0.7 (1.0-1.7) 0.7 (1.0-1.7) Influenza Type A Antigen Negative (NEGATIVE) Influenza Type B Antigen Negative (NEGATIVE) O2 Saturation 80% (92-99) Arterial Blood pH 7.36 (7.35-7.45) Arterial Blood pH (Temp corrected) Arterial Blood pCO2 at Patient Temp 41mmHg (35-46) Arterial Blood pCO2 (Temp correct) mmHg Arterial Blood pO2 at Patient Temp 51mmHg (75-108) Arterial Blood pO2 (Temp corrected) mmHg Arterial Blood HCO3 23mmol/L (21-28) Arterial Blood Base Excess -3mmol/L (-3-3) FiO2 100.0 Magnesium Level 2.0mg/dL (1.8-2.4) Iron Level 13ug/dL (50-170) Total Iron Binding Capacity 268ug/dL (250-450) Iron Saturation 5% (15-34) Triglycerides Level 46mg/dL (0-150) Cholesterol Level 86mg/dL (0-200) LDL Cholesterol, Calculated 54mg/dL (0-100) VLDL Cholesterol, Calculated 9mg/dL (0-40) HDL Cholesterol 23mg/dL (40-60) Cholesterol/HDL Ratio 3.7 Review of Systems Review of Systems Complaining of Fatigue Complaining of Cough and SOB that is improved with BIPAP Complaining of Nausea, Denies Vomiting All other ROS Negative Assessment and Plan Assessmemt and Plan Problems Medical Problems: (1) COPD exacerbation Status: Acute (2) Pneumonia Status: Acute 1. Acute Respiratory Distress on Chronic Hypoxic Failure 2. COPD 3. Pulmonary HTN 4. HTN 5. Hyperlipidemia 6. CHF 7. CKD 3 8. Anemia of Chronic Disease 9. Troponinemia Plan - Critically ill with Hypotension and Desaturations throughout evening - Pt transferred to ICU this AM - Continue on BIPAP and Regular 02 at this time - Will continue to monitor close vitals - Appreciate Pulmonary Recommendations - Will continue pt on Revatio in place of home Adempas TID and Luteris - Continue on Levaquin abx for now - Regular nebs along with regular pulmicort and prednisone administrations - Cardiology Consulted - await recommendations Problems: Comment Review of Relevant I have reviewed the following items marnie (where applicable) has been applied. Labs Laboratory Tests Test 09/23/16 19:46 09/23/16 20:00 09/24/16 06:50 09/24/16 07:30 White Blood Count 6.4x10^3/uL (4.0-11.0) 4.7x10^3/uL (4.0-11.0) Red Blood Count 3.67x10^6/uL (3.50-5.40) 3.50x10^6/uL (3.50-5.40) Hemoglobin 8.7g/dL (12.0-15.5) 8.0g/dL (12.0-15.5) Hematocrit 27.0% (36.0-47.0) 26.2% (36.0-47.0) Mean Corpuscular Volume 74fL (79-100) 75fL (79-100) Mean Corpuscular Hemoglobin 24pg (25-35) 23pg (25-35) Mean Corpuscular Hemoglobin Concent 32g/dL (31-37) 31g/dL (31-37) Red Cell Distribution Width 19.9% (11.5-14.5) 19.9% (11.5-14.5) Platelet Count 190x10^3/uL (140-400) 179x10^3/uL (140-400) Neutrophils (%) (Auto) 66% (31-73) 87% (31-73) Lymphocytes (%) (Auto) 13% (24-48) 11% (24-48) Monocytes (%) (Auto) 18% (0-9) 2% (0-9) Eosinophils (%) (Auto) 2% (0-3) 0% (0-3) Basophils (%) (Auto) 1% (0-3) 0% (0-3) Neutrophils # (Auto) 4.2x10^3uL (1.8-7.7) 4.0x10^3uL (1.8-7.7) Lymphocytes # (Auto) 0.8x10^3/uL (1.0-4.8) 0.5x10^3/uL (1.0-4.8) Monocytes # (Auto) 1.2x10^3/uL (0.0-1.1) 0.1x10^3/uL (0.0-1.1) Eosinophils # (Auto) 0.1x10^3/uL (0.0-0.7) 0.0x10^3/uL (0.0-0.7) Basophils # (Auto) 0.0x10^3/uL (0.0-0.2) 0.0x10^3/uL (0.0-0.2) Segmented Neutrophils % 70% (35-66) Band Neutrophils % 2% (0-9) Lymphocytes % 14% (24-48) Monocytes % 13% (0-10) Basophils % 1% (0-3) Toxic Granulation Slight Platelet Estimate Adequate (ADEQUATE) Polychromasia Slight Hypochromasia Mod Anisocytosis Slight Microcytosis Mod Sodium Level 142mmol/L (136-145) 143mmol/L (136-145) Potassium Level 3.5mmol/L (3.5-5.1) 4.1mmol/L (3.5-5.1) Chloride Level 104mmol/L (98-107) 107mmol/L (98-107) Carbon Dioxide Level 26mmol/L (21-32) 24mmol/L (21-32) Anion Gap 12 (6-14) 12 (6-14) Blood Urea Nitrogen 13mg/dL (7-20) 15mg/dL (7-20) Creatinine 1.5mg/dL (0.6-1.0) 1.2mg/dL (0.6-1.0) Estimated GFR (Cockcroft-Gault) 43.5 56.2 BUN/Creatinine Ratio 9 (6-20) 13 (6-20) Glucose Level 95mg/dL (70-99) 131mg/dL (70-99) Calcium Level 8.4mg/dL (8.5-10.1) 7.9mg/dL (8.5-10.1) Total Bilirubin 0.5mg/dL (0.2-1.0) 0.3mg/dL (0.2-1.0) Aspartate Amino Transf (AST/SGOT) 12U/L (15-37) 11U/L (15-37) Alanine Aminotransferase (ALT/SGPT) 11U/L (14-59) 11U/L (14-59) Alkaline Phosphatase 88U/L (46-116) 80U/L (46-116) Troponin I Quantitative 0.071ng/mL (0.000-0.055) 0.260ng/mL (0.000-0.055) RI-Unb-H-Type Natriuretic Peptide 1330pg/mL (0-124) Total Protein 7.9g/dL (6.4-8.2) 6.6g/dL (6.4-8.2) Albumin 3.2g/dL (3.4-5.0) 2.8g/dL (3.4-5.0) Albumin/Globulin Ratio 0.7 (1.0-1.7) 0.7 (1.0-1.7) Influenza Type A Antigen Negative (NEGATIVE) Influenza Type B Antigen Negative (NEGATIVE) O2 Saturation 80% (92-99) Arterial Blood pH 7.36 (7.35-7.45) Arterial Blood pH (Temp corrected) Arterial Blood pCO2 at Patient Temp 41mmHg (35-46) Arterial Blood pCO2 (Temp correct) mmHg Arterial Blood pO2 at Patient Temp 51mmHg (75-108) Arterial Blood pO2 (Temp corrected) mmHg Arterial Blood HCO3 23mmol/L (21-28) Arterial Blood Base Excess -3mmol/L (-3-3) FiO2 100.0 Magnesium Level 2.0mg/dL (1.8-2.4) Iron Level 13ug/dL (50-170) Total Iron Binding Capacity 268ug/dL (250-450) Iron Saturation 5% (15-34) Triglycerides Level 46mg/dL (0-150) Cholesterol Level 86mg/dL (0-200) LDL Cholesterol, Calculated 54mg/dL (0-100) VLDL Cholesterol, Calculated 9mg/dL (0-40) HDL Cholesterol 23mg/dL (40-60) Cholesterol/HDL Ratio 3.7 Laboratory Tests Test 09/23/16 19:46 09/23/16 20:00 09/24/16 06:50 09/24/16 07:30 White Blood Count 6.4x10^3/uL (4.0-11.0) 4.7x10^3/uL (4.0-11.0) Red Blood Count 3.67x10^6/uL (3.50-5.40) 3.50x10^6/uL (3.50-5.40) Hemoglobin 8.7g/dL (12.0-15.5) 8.0g/dL (12.0-15.5) Hematocrit 27.0% (36.0-47.0) 26.2% (36.0-47.0) Mean Corpuscular Volume 74fL (79-100) 75fL (79-100) Mean Corpuscular Hemoglobin 24pg (25-35) 23pg (25-35) Mean Corpuscular Hemoglobin Concent 32g/dL (31-37) 31g/dL (31-37) Red Cell Distribution Width 19.9% (11.5-14.5) 19.9% (11.5-14.5) Platelet Count 190x10^3/uL (140-400) 179x10^3/uL (140-400) Neutrophils (%) (Auto) 66% (31-73) 87% (31-73) Lymphocytes (%) (Auto) 13% (24-48) 11% (24-48) Monocytes (%) (Auto) 18% (0-9) 2% (0-9) Eosinophils (%) (Auto) 2% (0-3) 0% (0-3) Basophils (%) (Auto) 1% (0-3) 0% (0-3) Neutrophils # (Auto) 4.2x10^3uL (1.8-7.7) 4.0x10^3uL (1.8-7.7) Lymphocytes # (Auto) 0.8x10^3/uL (1.0-4.8) 0.5x10^3/uL (1.0-4.8) Monocytes # (Auto) 1.2x10^3/uL (0.0-1.1) 0.1x10^3/uL (0.0-1.1) Eosinophils # (Auto) 0.1x10^3/uL (0.0-0.7) 0.0x10^3/uL (0.0-0.7) Basophils # (Auto) 0.0x10^3/uL (0.0-0.2) 0.0x10^3/uL (0.0-0.2) Segmented Neutrophils % 70% (35-66) Band Neutrophils % 2% (0-9) Lymphocytes % 14% (24-48) Monocytes % 13% (0-10) Basophils % 1% (0-3) Toxic Granulation Slight Platelet Estimate Adequate (ADEQUATE) Polychromasia Slight Hypochromasia Mod Anisocytosis Slight Microcytosis Mod Sodium Level 142mmol/L (136-145) 143mmol/L (136-145) Potassium Level 3.5mmol/L (3.5-5.1) 4.1mmol/L (3.5-5.1) Chloride Level 104mmol/L (98-107) 107mmol/L (98-107) Carbon Dioxide Level 26mmol/L (21-32) 24mmol/L (21-32) Anion Gap 12 (6-14) 12 (6-14) Blood Urea Nitrogen 13mg/dL (7-20) 15mg/dL (7-20) Creatinine 1.5mg/dL (0.6-1.0) 1.2mg/dL (0.6-1.0) Estimated GFR (Cockcroft-Gault) 43.5 56.2 BUN/Creatinine Ratio 9 (6-20) 13 (6-20) Glucose Level 95mg/dL (70-99) 131mg/dL (70-99) Calcium Level 8.4mg/dL (8.5-10.1) 7.9mg/dL (8.5-10.1) Total Bilirubin 0.5mg/dL (0.2-1.0) 0.3mg/dL (0.2-1.0) Aspartate Amino Transf (AST/SGOT) 12U/L (15-37) 11U/L (15-37) Alanine Aminotransferase (ALT/SGPT) 11U/L (14-59) 11U/L (14-59) Alkaline Phosphatase 88U/L (46-116) 80U/L (46-116) Troponin I Quantitative 0.071ng/mL (0.000-0.055) 0.260ng/mL (0.000-0.055) IT-Jmp-J-Type Natriuretic Peptide 1330pg/mL (0-124) Total Protein 7.9g/dL (6.4-8.2) 6.6g/dL (6.4-8.2) Albumin 3.2g/dL (3.4-5.0) 2.8g/dL (3.4-5.0) Albumin/Globulin Ratio 0.7 (1.0-1.7) 0.7 (1.0-1.7) Influenza Type A Antigen Negative (NEGATIVE) Influenza Type B Antigen Negative (NEGATIVE) O2 Saturation 80% (92-99) Arterial Blood pH 7.36 (7.35-7.45) Arterial Blood pH (Temp corrected) Arterial Blood pCO2 at Patient Temp 41mmHg (35-46) Arterial Blood pCO2 (Temp correct) mmHg Arterial Blood pO2 at Patient Temp 51mmHg (75-108) Arterial Blood pO2 (Temp corrected) mmHg Arterial Blood HCO3 23mmol/L (21-28) Arterial Blood Base Excess -3mmol/L (-3-3) FiO2 100.0 Magnesium Level 2.0mg/dL (1.8-2.4) Iron Level 13ug/dL (50-170) Total Iron Binding Capacity 268ug/dL (250-450) Iron Saturation 5% (15-34) Triglycerides Level 46mg/dL (0-150) Cholesterol Level 86mg/dL (0-200) LDL Cholesterol, Calculated 54mg/dL (0-100) VLDL Cholesterol, Calculated 9mg/dL (0-40) HDL Cholesterol 23mg/dL (40-60) Cholesterol/HDL Ratio 3.7 Medications Current Medications Albuterol Sulfate (Ventolin Neb Soln) 2.5 mg STK-MED ONCE .ROUTE ; Start at 19:48; Stop 09/23/16 at 19:49; Status DC Methylprednisolone Sodium Succinate (Solu-Medrol 125mg Vial) 125 mg 1X ONCE IV Last administered on 09/23/16 19:59; Start 09/23/16 at 19:45; Stop 09/23/16 at 19:50; Status DC Albuterol Sulfate (Ventolin Neb Soln) 10 mg 1X ONCE CONT NEB Last administered on 09/23/16 20:00; Start 09/23/16 at 19:45; Stop 09/23/16 at 19:50; Status DC Acetaminophen 1000 mg 1,000 mg 1X ONCE PO Last administered on 09/23/16 20:25 ; Start 09/23/16 at 20:30; Stop 09/23/16 at 20:31; Status DC Levofloxacin/ Dextrose (LEVAQUIN 750mg PREMIX) 150 ml @ 100 mls/hr 1X ONCE IV Last administered on 09/23/16 21:16; Start 09/23/16 at 21:00; Stop 09/23/16 at 22:29; Status DC Albuterol/ Ipratropium (Duoneb) 3 ml RTQID NEB ; Start 09/24/16 at 08:00; Stop at 08:00; Status DC Enoxaparin Sodium (Lovenox Per Pharmacy Prophylaxis Dosing) 1 each PRN DAILY PRN MC SEE COMMENTS; Start 09/23/16 at 22:45 Albuterol/ Ipratropium (Duoneb) 3 ml Q4HRS W/A NEB ; Start 09/24/16 at 10:00 Albuterol Sulfate (Ventolin Neb Soln) 2.5 mg PRN QID PRN NEB dyspnea Last administered on 09/24/16 06:48; Start 09/23/16 at 22:45 Budesonide (Pulmicort) 0.5 mg RTBID NEB Last administered on 09/24/16 07:31; Start 09/24/16 at 08:00 Prednisone (Prednisone) 60 mg DAILY08 PO Last administered on 09/24/16 09:57; Start 09/24/16 at 08:00 Levofloxacin (Levaquin) 750 mg DAILY06 PO Last administered on 09/24/16 05:47; Start 09/24/16 at 06:00 Aspirin (Ecotrin) 324 mg DAILY PO Last administered on 09/24/16 09:57; Start at 22:45 Carvedilol (Coreg) 12.5 mg BIDWMEALS PO ; Start 09/24/16 at 08:00 Furosemide (Lasix) 40 mg DAILY PO ; Start 09/24/16 at 09:00; Stop 09/24/16 at 09: 52; Status DC Pantoprazole Sodium (Protonix) 40 mg DAILYAC PO Last administered on 09/24/16 09:58; Start 09/24/16 at 07:30 Potassium Chloride (Klor-Con) 20 meq 1X ONCE PO Last administered on 09/24/16 00:22; Start 09/23/16 at 23:00; Stop 09/23/16 at 23:01; Status DC Enoxaparin Sodium (Lovenox 40mg Syringe) 40 mg DAILY SQ ; Start 09/24/16 at 23:00 Non-Formulary Medication 1 ea TID PO ; Start 09/24/16 at 09:00; Status UNV Non-Formulary Medication 1 ea DAILY PO ; Start 09/24/16 at 09:00 Sildenafil Citrate 20 mg 20 mg TID PO Last administered on 09/24/16 00:22; Start 09/23/16 at 23:30; Stop 09/24/16 at 14:00 Sodium Chloride (Iv Sodium Chloride 0.9% 1000ml Bag) 1,000 ml @ 592.5 mls/ hr Q1H42M IV Last administered on 09/24/16 04:34; Start 09/24/16 at 00:30; Stop 09/24/16 at 04:29; Status DC Info (Do NOT chart on this placeholder) 1 each 1X ONCE MC ; Start 09/24/16 at 01 :30; Stop 09/24/16 at 01:31; Status UNV Pneumococcal Polyvalent Vaccine (Do NOT chart on this placeholder) 1 each 1X ONCE MC ; Start 09/24/16 at 01:30; Stop 09/24/16 at 01:31; Status UNV Influenza Virus Vaccine Quadrival (Fluarix Quad [id number] Syringe) 0.5 ml ONCE ONCE VAX IM ; Start 09/24/16 at 09:00; Stop 09/24/16 at 09:01; Status DC Pneumococcal Polyvalent Vaccine 0.5 ml 0.5 ml ONCE ONCE VAX IM ; Start 09/24/16 at 09:00; Stop 09/24/16 at 09:01; Status DC Sodium Chloride 500 ml @ 500 mls/hr 1X ONCE IV Last administered on 09/24/16 07:45; Start 09/24/16 at 07:30; Stop 09/24/16 at 08:29; Status DC Sodium Chloride 1,000 ml @ 100 mls/hr Q10H IV ; Start 09/24/16 at 08:30 Sodium Chloride (Iv Sodium Chloride 0.9% 500ml Bag) 500 ml @ 500 mls/hr 1X ONCE IV ; Start 09/24/16 at 10:00; Stop 09/24/16 at 10:59 Active Scripts Active Reported Proair Hfa Inhaler (Albuterol Sulfate) 8.5 Gm Hfa.aer.ad 2 Puff INH PRN DAILY PRN Pantoprazole Sodium 40 Mg Tablet. 1 Tab PO DAILY Coreg (Carvedilol) 12.5 Mg Tablet 1 Tab PO BID Aspir 81 (Aspirin) 81 Mg Tablet.dr 81 Mg PO Lasix (Furosemide) 20 Mg Tablet 40 Mg PO DAILY Vitals/I & O Vital Sign - Last 24 Hours 09/23/16 09/23/16 09/23/16 09/23/16 19:33 19:38 19:54 20:22 Temp 103.1 103.1 Pulse 94 90 92 Resp 30 26 24 B/P 126/74 126/74 116/66 Pulse Ox 91 92 92 93 O2 Delivery NonRebreather Mask cont. breathing treatment NonRebreather Mask cont. breathing treatment O2 Flow Rate 15.0 15 09/23/16 09/23/16 09/23/16 09/23/16 20:30 20:42 21:02 21:55 Temp 100.1 100.1 Pulse 94 92 88 Resp 22 16 24 B/P 108/59 109/56 104/55 Pulse Ox 92 94 92 O2 Delivery NonRebreather Mask NonRebreather Mask NonRebreather Mask O2 Flow Rate 15 15 10 09/23/16 09/23/16 09/24/16 09/24/16 22:05 22:22 00:22 03:35 Temp 99.3 97.5 99.3 97.5 Pulse 86 76 73 Resp 24 20 B/P 92/44 102/61 Pulse Ox 90 95 O2 Delivery Non-Rebreather Venturi Mask NonRebreather Mask O2 Flow Rate 10.0 10.0 10.0 09/24/16 09/24/16 09/24/16 09/24/16 06:48 07:00 07:35 08:00 Temp 96.6 96.6 Pulse 63 Resp 24 B/P 81/48 104/64 Pulse Ox 98 99 98 O2 Delivery BiPAP/CPAP BiPAP/CPAP BiPAP/CPAP 09/24/16 09/24/16 08:24 09:00 B/P 104/64 Pulse Ox 94 O2 Delivery BiPAP/CPAP Intake and Output 09/23/16 09/23/16 09/24/16 15:00 23:00 07:00 Intake Total 440 ml Output Total 600 ml Balance -160 ml VALERIY MAK III DO Sep 24, 2016 11:10
[2016-09-24 11:13] LABS: HCO3 ABG 21 mmol/L (21-28); PCO2 ABG 38 mmHg (35-46); PH ABG 7.37 (7.35-7.45); PO2 ABG 64 mmHg (75-108); SAT O2 ABG 90 % (92-99)
[2016-09-24 11:15] LABS: FIO2 ABG 50
--- NOTE | 2016-09-24 14:42 | CARD ---
APPROVED REPORT EXAM: Two-dimensional and M-mode echocardiogram with Doppler and color Doppler. Other Information Quality : Average Rhythm : NSR INDICATION Pulmonary Hypertention 2D DIMENSIONS RVDd3.6 (2.9-3.5cm)Left Atrium(2D)3.9 (1.6-4.0cm) IVSd1.2 (0.7-1.1cm)Aortic Root(2D)3.2 (2.0-3.7cm) LVDd5.3 (3.9-5.9cm)LVOT Diameter2.2 (1.8-2.4cm) PWd1.2 (0.7-1.1cm)LVDs3.2 (2.5-4.0cm) FS (%) 39.2 %SV91.9 ml LVEF(%)69.2 (>50%) Aortic Valve AoV Peak Yakov.175.3cm/sAoV VTI37.2cm AO Peak GR.12.3mmHgLVOT VTI 24.75cm AO Mean GR.8mmHgAVA (VTI)2.64cm2 Mitral Valve MV E Vymcnmjl58.9cm/sMV E Peak Gr.0mmHg MV DECEL [id number] A Vxysrlkv61.3cm/s MV E Mean Gr.3mmHgMV QPV29fl E/A Ratio1.5MV A Lmtgsdta153xa MVA (PHT)3.44cm2 Tricuspid Valve TR P. [id number]/sRAP TGFIDTAI69omNc TR Peak Gr.36uvSjMESQ00rvNt Pulmonary Vein S1 Dwcphdje03.1cm/sS2 Feghplyj75.05cm/s D2 Zmrdsary65.0cm/s LEFT VENTRICLE The left ventricle is normal size. There is borderline concentric left ventricular hypertrophy. Left ventricle systolic function is normal. The Ejection Fraction is 65-70%. There is normal LV segmental wall motion. The left ventricular diastolic function and filling is normal for age. RIGHT VENTRICLE The right ventricle is normal size. The right ventricular systolic function is normal. ATRIA The left atrium size is normal. The right atrium size is normal. The interatrial septum is intact wit h no evidence for an atrial septal defect or patent foramen ovale as noted on 2-D or Doppler imaging. AORTIC VALVE The aortic valve is normal in structure and function. The aortic valve is trileaflet. Doppler and Col or Flow revealed no significant aortic regurgitation. There is no significant aortic valvular stenosi s. MITRAL VALVE The mitral valve is normal in structure. There is no mitral valve stenosis. Doppler and Color Flow re vealed mild mitral regurgitation. TRICUSPID VALVE The tricuspid valve is normal in structure and function. Doppler and Color Flow revealed moderate tri cuspid regurgitation. There is severe pulmonary hypertension. The PA pressure was estimated at 81 mmH g. There is no tricuspid valve stenosis. PULMONIC VALVE The pulmonic valve is not well visualized. Doppler and Color Flow revealed no pulmonic valvular regur gitation. There is no pulmonic valvular stenosis. GREAT VESSELS The aortic root is normal in size. Normal pulmonary venous flow (Doppler). The IVC is dilated and col lapses <50% with inspiration. PERICARDIAL EFFUSION There is no evidence of significant pericardial effusion. Critical Notification Critical Value: No <Conclusion> Left ventricle systolic function is normal. The Ejection Fraction is 65-70%. There is normal LV segmental wall motion. Mild mitral regurgitation. Moderate tricuspid regurgitation. There is severe pulmonary hypertension. The PA pressure was estimated at 81 mmHg. There is no evidence of significant pericardial effusion.
[2016-09-24] MEDS: ADEMPAS 2 MG PO SCH (21:09)
[2016-09-24] MEDS: ENOXAPARIN 40 MG/0.4 ML DISP.SYRIN. SQ SCH (23:29)
[2016-09-25] VITALS (24 sets, daily range): BP systolic 90–120; BP diastolic 49–77
[2016-09-25] MEDS: IV NORMAL SALINE 1000ML BAG 1,000 ML IV SCH ×4 (00:33→20:24)
[2016-09-25] MEDS: ALPRAZOLAM 0.5 MG TABLET PO PRN ×2 (00:33→20:23)
[2016-09-25] MEDS: LEVOFLOXACIN 750 MG TABLET. PO SCH (05:59)
[2016-09-25 07:00] LABS: CALCIUM 8.5 mg/dL (8.5-10.1); CREATININE 1.1 mg/dL (0.6-1.0); GFR 62.2
[2016-09-25 07:01] LABS: BASO % 0 % (0-3); EOS % 0 % (0-3); HEMATOCRIT 24.4 % (36.0-47.0); HEMOGLOBIN 7.3 g/dL (12.0-15.5); LYMPH # 1.1 x10^3/uL (1.0-4.8); LYMPH % 12 % (24-48); MEAN CORPUSCULAR HEMOGLOBIN 23 pg (25-35); MEAN CORPUSCULAR HGB CONC 30 g/dL (31-37); MEAN CORPUSCULAR VOLUME 75 fL (79-100); MONO % 9 % (0-9); NEUT % 79 % (31-73); PLATELET COUNT 169 x10^3/uL (140-400); RED BLOOD COUNT 3.24 x10^6/uL (3.50-5.40); RED CELL DISTRIBUTION WIDTH 20.4 % (11.5-14.5); WHITE BLOOD COUNT 9.5 x10^3/uL (4.0-11.0)
[2016-09-25] MEDS: CARVEDILOL 12.5 MG TABLET PO SCH ×2 (08:00→17:00)
[2016-09-25] MEDS: BUDESONIDE 0.5 MG/2 ML NEBU NEB SCH ×2 (08:27→20:31)
[2016-09-25 08:28] LABS: HCO3 ABG 23 mmol/L (21-28); PCO2 ABG 44 mmHg (35-46); PH ABG 7.34 (7.35-7.45); PO2 ABG 89 mmHg (75-108); SAT O2 ABG 96 % (92-99)
[2016-09-25 08:54] LABS: FIO2 ABG 50
--- NOTE | 2016-09-25 10:06 | PDOC ---
PROGRESS NOTES Chief Complaint Chief Complaint 1. Acute Respiratory Distress on Chronic Hypoxic Failure 2. COPD 3. Pulmonary HTN 4. HTN 5. Hyperlipidemia 6. CHF 7. CKD 3 8. Anemia of Chronic Disease 9. elevated troponin due to hypoxia Plan seen in ICU Steroid taper Levaquin PRN BIPAP supplemental oxygen PRN nebulizations Follow cardiology recommendations. monitor anemia Echo results reviewed, CT chest pending. DVT prophylaxis. History of Present Illness History of Present Illness Seen icu doing better supplemental oxygen Vitals Vitals Vital Signs Date Time Temp Pulse Resp B/P Pulse Ox O2 Delivery O2 Flow Rate FiO2 09/25/16 08:35 95 High Flow Nasal Cannula 15.0 09/25/16 07:00 97.5 52 18 120/69 97.5 Physical Exam General: Alert, Oriented X3, Cooperative, mild distress Heart: Regular rate, Normal S1, Normal S2, Other (heart tones difficutly to appreciate) Lungs: Crackles, Other (Diminished Breath Sounds) Abdomen: Soft, No tenderness Extremities: Normal pulses, Other (trace LE edema ) Skin: No breakdown, No significant lesion Labs LABS Laboratory Tests Test 09/24/16 11:00 09/24/16 14:05 09/24/16 21:40 09/25/16 06:00 O2 Saturation 90% (92-99) Arterial Blood pH 7.37 (7.35-7.45) Arterial Blood pCO2 at Patient Temp 38mmHg (35-46) Arterial Blood pO2 at Patient Temp 64mmHg (75-108) Arterial Blood HCO3 21mmol/L (21-28) Arterial Blood Base Excess -4mmol/L (-3-3) FiO2 50 Troponin I Quantitative 0.170ng/mL (0.000-0.055) 0.126ng/mL (0.000-0.055) White Blood Count 9.5x10^3/uL (4.0-11.0) Red Blood Count 3.24x10^6/uL (3.50-5.40) Hemoglobin 7.3g/dL (12.0-15.5) Hematocrit 24.4% (36.0-47.0) Mean Corpuscular Volume 75fL (79-100) Mean Corpuscular Hemoglobin 23pg (25-35) Mean Corpuscular Hemoglobin Concent 30g/dL (31-37) Red Cell Distribution Width 20.4% (11.5-14.5) Platelet Count 169x10^3/uL (140-400) Neutrophils (%) (Auto) 79% (31-73) Lymphocytes (%) (Auto) 12% (24-48) Monocytes (%) (Auto) 9% (0-9) Eosinophils (%) (Auto) 0% (0-3) Basophils (%) (Auto) 0% (0-3) Neutrophils # (Auto) 7.5x10^3uL (1.8-7.7) Lymphocytes # (Auto) 1.1x10^3/uL (1.0-4.8) Monocytes # (Auto) 0.8x10^3/uL (0.0-1.1) Eosinophils # (Auto) 0.0x10^3/uL (0.0-0.7) Basophils # (Auto) 0.0x10^3/uL (0.0-0.2) Sodium Level 140mmol/L (136-145) Potassium Level 4.0mmol/L (3.5-5.1) Chloride Level 109mmol/L (98-107) Carbon Dioxide Level 23mmol/L (21-32) Anion Gap 8 (6-14) Blood Urea Nitrogen 17mg/dL (7-20) Creatinine 1.1mg/dL (0.6-1.0) Estimated GFR (Cockcroft-Gault) 62.2 Glucose Level 112mg/dL (70-99) Calcium Level 8.5mg/dL (8.5-10.1) Test 09/25/16 08:00 O2 Saturation 96% (92-99) Arterial Blood pH 7.34 (7.35-7.45) Arterial Blood pCO2 at Patient Temp 44mmHg (35-46) Arterial Blood pO2 at Patient Temp 89mmHg (75-108) Arterial Blood HCO3 23mmol/L (21-28) Arterial Blood Base Excess -3mmol/L (-3-3) FiO2 50 Assessment and Plan Assessmemt and Plan Problems Medical Problems: (1) COPD exacerbation Status: Acute (2) Pneumonia Status: Acute Problems: Comment Review of Relevant I have reviewed the following items marnie (where applicable) has been applied. Labs Laboratory Tests Test 09/23/16 19:46 09/23/16 20:00 09/24/16 06:50 09/24/16 07:30 White Blood Count 6.4x10^3/uL (4.0-11.0) 4.7x10^3/uL (4.0-11.0) Red Blood Count 3.67x10^6/uL (3.50-5.40) 3.50x10^6/uL (3.50-5.40) Hemoglobin 8.7g/dL (12.0-15.5) 8.0g/dL (12.0-15.5) Hematocrit 27.0% (36.0-47.0) 26.2% (36.0-47.0) Mean Corpuscular Volume 74fL (79-100) 75fL (79-100) Mean Corpuscular Hemoglobin 24pg (25-35) 23pg (25-35) Mean Corpuscular Hemoglobin Concent 32g/dL (31-37) 31g/dL (31-37) Red Cell Distribution Width 19.9% (11.5-14.5) 19.9% (11.5-14.5) Platelet Count 190x10^3/uL (140-400) 179x10^3/uL (140-400) Neutrophils (%) (Auto) 66% (31-73) 87% (31-73) Lymphocytes (%) (Auto) 13% (24-48) 11% (24-48) Monocytes (%) (Auto) 18% (0-9) 2% (0-9) Eosinophils (%) (Auto) 2% (0-3) 0% (0-3) Basophils (%) (Auto) 1% (0-3) 0% (0-3) Neutrophils # (Auto) 4.2x10^3uL (1.8-7.7) 4.0x10^3uL (1.8-7.7) Lymphocytes # (Auto) 0.8x10^3/uL (1.0-4.8) 0.5x10^3/uL (1.0-4.8) Monocytes # (Auto) 1.2x10^3/uL (0.0-1.1) 0.1x10^3/uL (0.0-1.1) Eosinophils # (Auto) 0.1x10^3/uL (0.0-0.7) 0.0x10^3/uL (0.0-0.7) Basophils # (Auto) 0.0x10^3/uL (0.0-0.2) 0.0x10^3/uL (0.0-0.2) Segmented Neutrophils % 70% (35-66) Band Neutrophils % 2% (0-9) Lymphocytes % 14% (24-48) Monocytes % 13% (0-10) Basophils % 1% (0-3) Toxic Granulation Slight Platelet Estimate Adequate (ADEQUATE) Polychromasia Slight Hypochromasia Mod Anisocytosis Slight Microcytosis Mod Sodium Level 142mmol/L (136-145) 143mmol/L (136-145) Potassium Level 3.5mmol/L (3.5-5.1) 4.1mmol/L (3.5-5.1) Chloride Level 104mmol/L (98-107) 107mmol/L (98-107) Carbon Dioxide Level 26mmol/L (21-32) 24mmol/L (21-32) Anion Gap 12 (6-14) 12 (6-14) Blood Urea Nitrogen 13mg/dL (7-20) 15mg/dL (7-20) Creatinine 1.5mg/dL (0.6-1.0) 1.2mg/dL (0.6-1.0) Estimated GFR (Cockcroft-Gault) 43.5 56.2 BUN/Creatinine Ratio 9 (6-20) 13 (6-20) Glucose Level 95mg/dL (70-99) 131mg/dL (70-99) Calcium Level 8.4mg/dL (8.5-10.1) 7.9mg/dL (8.5-10.1) Total Bilirubin 0.5mg/dL (0.2-1.0) 0.3mg/dL (0.2-1.0) Aspartate Amino Transf (AST/SGOT) 12U/L (15-37) 11U/L (15-37) Alanine Aminotransferase (ALT/SGPT) 11U/L (14-59) 11U/L (14-59) Alkaline Phosphatase 88U/L (46-116) 80U/L (46-116) Troponin I Quantitative 0.071ng/mL (0.000-0.055) 0.260ng/mL (0.000-0.055) PT-Aci-L-Type Natriuretic Peptide 1330pg/mL (0-124) Total Protein 7.9g/dL (6.4-8.2) 6.6g/dL (6.4-8.2) Albumin 3.2g/dL (3.4-5.0) 2.8g/dL (3.4-5.0) Albumin/Globulin Ratio 0.7 (1.0-1.7) 0.7 (1.0-1.7) Influenza Type A Antigen Negative (NEGATIVE) Influenza Type B Antigen Negative (NEGATIVE) O2 Saturation 80% (92-99) Arterial Blood pH 7.36 (7.35-7.45) Arterial Blood pH (Temp corrected) Arterial Blood pCO2 at Patient Temp 41mmHg (35-46) Arterial Blood pCO2 (Temp correct) mmHg Arterial Blood pO2 at Patient Temp 51mmHg (75-108) Arterial Blood pO2 (Temp corrected) mmHg Arterial Blood HCO3 23mmol/L (21-28) Arterial Blood Base Excess -3mmol/L (-3-3) FiO2 100.0 Magnesium Level 2.0mg/dL (1.8-2.4) Iron Level 13ug/dL (50-170) Total Iron Binding Capacity 268ug/dL (250-450) Iron Saturation 5% (15-34) Triglycerides Level 46mg/dL (0-150) Cholesterol Level 86mg/dL (0-200) LDL Cholesterol, Calculated 54mg/dL (0-100) VLDL Cholesterol, Calculated 9mg/dL (0-40) HDL Cholesterol 23mg/dL (40-60) Cholesterol/HDL Ratio 3.7 Test 09/24/16 09:30 09/24/16 09:34 09/24/16 11:00 09/24/16 14:05 Lactic Acid Level 0.8mmol/L (0.4-2.0) Nasal Screen MRSA (PCR) Negative (Negative) O2 Saturation 90% (92-99) Arterial Blood pH 7.37 (7.35-7.45) Arterial Blood pCO2 at Patient Temp 38mmHg (35-46) Arterial Blood pO2 at Patient Temp 64mmHg (75-108) Arterial Blood HCO3 21mmol/L (21-28) Arterial Blood Base Excess -4mmol/L (-3-3) FiO2 50 Troponin I Quantitative 0.170ng/mL (0.000-0.055) Test 09/24/16 21:40 09/25/16 06:00 09/25/16 08:00 Troponin I Quantitative 0.126ng/mL (0.000-0.055) White Blood Count 9.5x10^3/uL (4.0-11.0) Red Blood Count 3.24x10^6/uL (3.50-5.40) Hemoglobin 7.3g/dL (12.0-15.5) Hematocrit 24.4% (36.0-47.0) Mean Corpuscular Volume 75fL (79-100) Mean Corpuscular Hemoglobin 23pg (25-35) Mean Corpuscular Hemoglobin Concent 30g/dL (31-37) Red Cell Distribution Width 20.4% (11.5-14.5) Platelet Count 169x10^3/uL (140-400) Neutrophils (%) (Auto) 79% (31-73) Lymphocytes (%) (Auto) 12% (24-48) Monocytes (%) (Auto) 9% (0-9) Eosinophils (%) (Auto) 0% (0-3) Basophils (%) (Auto) 0% (0-3) Neutrophils # (Auto) 7.5x10^3uL (1.8-7.7) Lymphocytes # (Auto) 1.1x10^3/uL (1.0-4.8) Monocytes # (Auto) 0.8x10^3/uL (0.0-1.1) Eosinophils # (Auto) 0.0x10^3/uL (0.0-0.7) Basophils # (Auto) 0.0x10^3/uL (0.0-0.2) Sodium Level 140mmol/L (136-145) Potassium Level 4.0mmol/L (3.5-5.1) Chloride Level 109mmol/L (98-107) Carbon Dioxide Level 23mmol/L (21-32) Anion Gap 8 (6-14) Blood Urea Nitrogen 17mg/dL (7-20) Creatinine 1.1mg/dL (0.6-1.0) Estimated GFR (Cockcroft-Gault) 62.2 Glucose Level 112mg/dL (70-99) Calcium Level 8.5mg/dL (8.5-10.1) O2 Saturation 96% (92-99) Arterial Blood pH 7.34 (7.35-7.45) Arterial Blood pCO2 at Patient Temp 44mmHg (35-46) Arterial Blood pO2 at Patient Temp 89mmHg (75-108) Arterial Blood HCO3 23mmol/L (21-28) Arterial Blood Base Excess -3mmol/L (-3-3) FiO2 50 Laboratory Tests Test 09/24/16 11:00 09/24/16 14:05 09/24/16 21:40 09/25/16 06:00 O2 Saturation 90% (92-99) Arterial Blood pH 7.37 (7.35-7.45) Arterial Blood pCO2 at Patient Temp 38mmHg (35-46) Arterial Blood pO2 at Patient Temp 64mmHg (75-108) Arterial Blood HCO3 21mmol/L (21-28) Arterial Blood Base Excess -4mmol/L (-3-3) FiO2 50 Troponin I Quantitative 0.170ng/mL (0.000-0.055) 0.126ng/mL (0.000-0.055) White Blood Count 9.5x10^3/uL (4.0-11.0) Red Blood Count 3.24x10^6/uL (3.50-5.40) Hemoglobin 7.3g/dL (12.0-15.5) Hematocrit 24.4% (36.0-47.0) Mean Corpuscular Volume 75fL (79-100) Mean Corpuscular Hemoglobin 23pg (25-35) Mean Corpuscular Hemoglobin Concent 30g/dL (31-37) Red Cell Distribution Width 20.4% (11.5-14.5) Platelet Count 169x10^3/uL (140-400) Neutrophils (%) (Auto) 79% (31-73) Lymphocytes (%) (Auto) 12% (24-48) Monocytes (%) (Auto) 9% (0-9) Eosinophils (%) (Auto) 0% (0-3) Basophils (%) (Auto) 0% (0-3) Neutrophils # (Auto) 7.5x10^3uL (1.8-7.7) Lymphocytes # (Auto) 1.1x10^3/uL (1.0-4.8) Monocytes # (Auto) 0.8x10^3/uL (0.0-1.1) Eosinophils # (Auto) 0.0x10^3/uL (0.0-0.7) Basophils # (Auto) 0.0x10^3/uL (0.0-0.2) Sodium Level 140mmol/L (136-145) Potassium Level 4.0mmol/L (3.5-5.1) Chloride Level 109mmol/L (98-107) Carbon Dioxide Level 23mmol/L (21-32) Anion Gap 8 (6-14) Blood Urea Nitrogen 17mg/dL (7-20) Creatinine 1.1mg/dL (0.6-1.0) Estimated GFR (Cockcroft-Gault) 62.2 Glucose Level 112mg/dL (70-99) Calcium Level 8.5mg/dL (8.5-10.1) Test 09/25/16 08:00 O2 Saturation 96% (92-99) Arterial Blood pH 7.34 (7.35-7.45) Arterial Blood pCO2 at Patient Temp 44mmHg (35-46) Arterial Blood pO2 at Patient Temp 89mmHg (75-108) Arterial Blood HCO3 23mmol/L (21-28) Arterial Blood Base Excess -3mmol/L (-3-3) FiO2 50 Microbiology 09/23/16 Blood Culture - Preliminary, Resulted NO GROWTH AFTER 1 DAY Medications Current Medications Albuterol Sulfate (Ventolin Neb Soln) 2.5 mg STK-MED ONCE .ROUTE ; Start at 19:48; Stop 09/23/16 at 19:49; Status DC Methylprednisolone Sodium Succinate (Solu-Medrol 125mg Vial) 125 mg 1X ONCE IV Last administered on 09/23/16 19:59; Start 09/23/16 at 19:45; Stop 09/23/16 at 19:50; Status DC Albuterol Sulfate (Ventolin Neb Soln) 10 mg 1X ONCE CONT NEB Last administered on 09/23/16 20:00; Start 09/23/16 at 19:45; Stop 09/23/16 at 19:50; Status DC Acetaminophen 1000 mg 1,000 mg 1X ONCE PO Last administered on 09/23/16 20:25 ; Start 09/23/16 at 20:30; Stop 09/23/16 at 20:31; Status DC Levofloxacin/ Dextrose (LEVAQUIN 750mg PREMIX) 150 ml @ 100 mls/hr 1X ONCE IV Last administered on 09/23/16 21:16; Start 09/23/16 at 21:00; Stop 09/23/16 at 22:29; Status DC Albuterol/ Ipratropium (Duoneb) 3 ml RTQID NEB ; Start 09/24/16 at 08:00; Stop at 08:00; Status DC Enoxaparin Sodium (Lovenox Per Pharmacy Prophylaxis Dosing) 1 each PRN DAILY PRN MC SEE COMMENTS; Start 09/23/16 at 22:45 Albuterol/ Ipratropium (Duoneb) 3 ml Q4HRS W/A NEB Last administered on 19:49; Start 09/24/16 at 10:00 Albuterol Sulfate (Ventolin Neb Soln) 2.5 mg PRN QID PRN NEB dyspnea Last administered on 09/24/16 06:48; Start 09/23/16 at 22:45 Budesonide (Pulmicort) 0.5 mg RTBID NEB Last administered on 09/25/16 08:27; Start 09/24/16 at 08:00 Prednisone (Prednisone) 60 mg DAILY08 PO Last administered on 09/24/16 09:57; Start 09/24/16 at 08:00 Levofloxacin (Levaquin) 750 mg DAILY06 PO Last administered on 09/25/16 05:59 ; Start 09/24/16 at 06:00 Aspirin (Ecotrin) 324 mg DAILY PO Last administered on 09/24/16 09:57; Start at 22:45 Carvedilol (Coreg) 12.5 mg BIDWMEALS PO ; Start 09/24/16 at 08:00 Furosemide (Lasix) 40 mg DAILY PO ; Start 09/24/16 at 09:00; Stop 09/24/16 at 09: 52; Status DC Pantoprazole Sodium (Protonix) 40 mg DAILYAC PO Last administered on 09/24/16 09:58; Start 09/24/16 at 07:30 Potassium Chloride (Klor-Con) 20 meq 1X ONCE PO Last administered on 09/24/16 00:22; Start 09/23/16 at 23:00; Stop 09/23/16 at 23:01; Status DC Enoxaparin Sodium (Lovenox 40mg Syringe) 40 mg DAILY SQ Last administered on 23:29; Start 09/24/16 at 23:00 Non-Formulary Medication 1 ea TID PO Last administered on 09/24/16 21:09; Start 09/24/16 at 21:00 Non-Formulary Medication 1 ea DAILY PO ; Start 09/24/16 at 09:00 Sildenafil Citrate 20 mg 20 mg TID PO Last administered on 09/24/16 00:22; Start 09/23/16 at 23:30; Stop 09/24/16 at 14:00; Status DC Sodium Chloride (Iv Sodium Chloride 0.9% 1000ml Bag) 1,000 ml @ 592.5 mls/ hr Q1H42M IV Last administered on 09/24/16 04:34; Start 09/24/16 at 00:30; Stop 09/24/16 at 04:29; Status DC Info (Do NOT chart on this placeholder) 1 each 1X ONCE MC ; Start 09/24/16 at 01 :30; Stop 09/24/16 at 01:31; Status UNV Pneumococcal Polyvalent Vaccine (Do NOT chart on this placeholder) 1 each 1X ONCE MC ; Start 09/24/16 at 01:30; Stop 09/24/16 at 01:31; Status UNV Influenza Virus Vaccine Quadrival (Fluarix Quad [id number] Syringe) 0.5 ml ONCE ONCE VAX IM ; Start 09/24/16 at 09:00; Stop 09/24/16 at 09:01; Status DC Pneumococcal Polyvalent Vaccine 0.5 ml 0.5 ml ONCE ONCE VAX IM ; Start 09/24/16 at 09:00; Stop 09/24/16 at 09:01; Status DC Sodium Chloride 500 ml @ 500 mls/hr 1X ONCE IV Last administered on 09/24/16 07:45; Start 09/24/16 at 07:30; Stop 09/24/16 at 08:29; Status DC Sodium Chloride 1,000 ml @ 100 mls/hr Q10H IV Last administered on 09/25/16 00:33; Start 09/24/16 at 08:30 Sodium Chloride (Iv Sodium Chloride 0.9% 500ml Bag) 500 ml @ 500 mls/hr 1X ONCE IV ; Start 09/24/16 at 10:00; Stop 09/24/16 at 10:59; Status DC Alprazolam (Xanax) 0.5 mg PRN Q4HRS PRN PO ANXIETY / AGITATION Last administered on 09/25/16 00:33; Start 09/25/16 at 00:30 Active Scripts Active Reported Proair Hfa Inhaler (Albuterol Sulfate) 8.5 Gm Hfa.aer.ad 2 Puff INH PRN DAILY PRN Pantoprazole Sodium 40 Mg Tablet. 1 Tab PO DAILY Coreg (Carvedilol) 12.5 Mg Tablet 1 Tab PO BID Aspir 81 (Aspirin) 81 Mg Tablet. 81 Mg PO Lasix (Furosemide) 20 Mg Tablet 40 Mg PO DAILY Vitals/I & O Vital Sign - Last 24 Hours 09/24/16 09/24/16 09/24/16 09/24/16 10:49 11:00 11:35 12:00 Pulse 66 78 Resp 20 B/P 109/67 Pulse Ox 95 93 94 O2 Delivery BiPAP/CPAP BiPAP/CPAP High Flow Nasal Cannula High Flow Nasal Cannula O2 Flow Rate 15.0 15.0 09/24/16 09/24/16 09/24/16 09/24/16 12:00 13:00 14:00 15:00 Temp 98.8 98.8 Pulse 78 72 68 Resp 20 22 22 B/P 104/55 99/59 110/60 Pulse Ox 94 90 93 O2 Delivery Non-Rebreather BiPAP/CPAP BiPAP/CPAP BiPAP/CPAP O2 Flow Rate 15.0 09/24/16 09/24/16 09/24/16 09/24/16 15:35 16:00 16:00 17:00 Temp 98.6 98.6 Pulse 68 62 Resp 18 18 B/P 107/56 103/57 Pulse Ox 97 96 97 O2 Delivery BiPAP/CPAP BiPAP/CPAP Non-Rebreather BiPAP/CPAP O2 Flow Rate 15.0 09/24/16 09/24/16 09/24/16 09/24/16 17:18 18:00 19:11 19:50 Pulse 71 80 Resp 18 18 B/P 129/73 132/64 Pulse Ox 97 98 93 97 O2 Delivery High Flow Nasal Cannula BiPAP/CPAP High Flow Nasal Cannula Nasal Cannula O2 Flow Rate 15.0 15.0 15.0 09/24/16 09/24/16 09/24/16 09/24/16 20:00 20:00 21:00 22:00 Temp 98.6 98.6 Pulse 72 64 61 Resp 20 22 18 B/P 108/61 112/69 114/70 Pulse Ox 99 98 97 O2 Delivery Bi-pap High Flow Nasal Cannula BiPAP/CPAP BiPAP/CPAP O2 Flow Rate 15.0 09/24/16 09/25/16 09/25/16 09/25/16 23:00 00:00 00:06 00:58 Temp 97.8 97.8 Pulse 63 68 Resp 19 19 B/P 116/67 92/52 Pulse Ox 98 98 99 O2 Delivery BiPAP/CPAP BiPAP/CPAP Bi-pap BiPAP/CPAP 09/25/16 09/25/16 09/25/16 09/25/16 01:00 02:00 03:00 03:11 Pulse 63 55 59 Resp 20 18 18 B/P 95/49 110/60 99/56 Pulse Ox 97 100 100 96 O2 Delivery BiPAP/CPAP BiPAP/CPAP BiPAP/CPAP BiPAP/CPAP 09/25/16 09/25/16 09/25/16 09/25/16 04:00 04:00 04:54 05:00 Temp 97.7 97.7 Pulse 58 52 Resp 18 18 B/P 98/58 93/53 Pulse Ox 100 99 100 O2 Delivery Bi-pap BiPAP/CPAP BiPAP/CPAP BiPAP/CPAP 09/25/16 09/25/16 09/25/16 09/25/16 06:00 07:00 08:30 08:35 Temp 97.5 97.5 Pulse 53 52 Resp 18 18 B/P 113/61 120/69 Pulse Ox 100 100 95 95 O2 Delivery BiPAP/CPAP BiPAP/CPAP High Flow Nasal Cannula High Flow Nasal Cannula O2 Flow Rate 15.0 15.0 Intake and Output 09/24/16 09/24/16 09/25/16 15:00 23:00 07:00 Intake Total 100 ml 596 ml 1079 ml Output Total 450 ml Balance 100 ml 146 ml 1079 ml CRISTHIAN MORATAYA MD Sep 25, 2016 10:06
--- NOTE | 2016-09-25 10:06 | PDOC ---
PULMONARY PROGRESS NOTES Subjective feels better off BIPAP Vitals Vital Signs Date Time Temp Pulse Resp B/P Pulse Ox O2 Delivery O2 Flow Rate FiO2 09/25/16 08:35 95 High Flow Nasal Cannula 15.0 09/25/16 07:00 97.5 52 18 120/69 97.5 General: Alert, No acute distress Lungs: Other (Diminished Breath Sounds) Cardiovascular: S1 Abdomen: Soft Extremities: No Edema Labs Laboratory Tests Test 09/23/16 19:46 09/23/16 20:00 09/24/16 06:50 09/24/16 07:30 White Blood Count 6.4x10^3/uL (4.0-11.0) 4.7x10^3/uL (4.0-11.0) Red Blood Count 3.67x10^6/uL (3.50-5.40) 3.50x10^6/uL (3.50-5.40) Hemoglobin 8.7g/dL (12.0-15.5) 8.0g/dL (12.0-15.5) Hematocrit 27.0% (36.0-47.0) 26.2% (36.0-47.0) Mean Corpuscular Volume 74fL (79-100) 75fL (79-100) Mean Corpuscular Hemoglobin 24pg (25-35) 23pg (25-35) Mean Corpuscular Hemoglobin Concent 32g/dL (31-37) 31g/dL (31-37) Red Cell Distribution Width 19.9% (11.5-14.5) 19.9% (11.5-14.5) Platelet Count 190x10^3/uL (140-400) 179x10^3/uL (140-400) Neutrophils (%) (Auto) 66% (31-73) 87% (31-73) Lymphocytes (%) (Auto) 13% (24-48) 11% (24-48) Monocytes (%) (Auto) 18% (0-9) 2% (0-9) Eosinophils (%) (Auto) 2% (0-3) 0% (0-3) Basophils (%) (Auto) 1% (0-3) 0% (0-3) Neutrophils # (Auto) 4.2x10^3uL (1.8-7.7) 4.0x10^3uL (1.8-7.7) Lymphocytes # (Auto) 0.8x10^3/uL (1.0-4.8) 0.5x10^3/uL (1.0-4.8) Monocytes # (Auto) 1.2x10^3/uL (0.0-1.1) 0.1x10^3/uL (0.0-1.1) Eosinophils # (Auto) 0.1x10^3/uL (0.0-0.7) 0.0x10^3/uL (0.0-0.7) Basophils # (Auto) 0.0x10^3/uL (0.0-0.2) 0.0x10^3/uL (0.0-0.2) Segmented Neutrophils % 70% (35-66) Band Neutrophils % 2% (0-9) Lymphocytes % 14% (24-48) Monocytes % 13% (0-10) Basophils % 1% (0-3) Toxic Granulation Slight Platelet Estimate Adequate (ADEQUATE) Polychromasia Slight Hypochromasia Mod Anisocytosis Slight Microcytosis Mod Sodium Level 142mmol/L (136-145) 143mmol/L (136-145) Potassium Level 3.5mmol/L (3.5-5.1) 4.1mmol/L (3.5-5.1) Chloride Level 104mmol/L (98-107) 107mmol/L (98-107) Carbon Dioxide Level 26mmol/L (21-32) 24mmol/L (21-32) Anion Gap 12 (6-14) 12 (6-14) Blood Urea Nitrogen 13mg/dL (7-20) 15mg/dL (7-20) Creatinine 1.5mg/dL (0.6-1.0) 1.2mg/dL (0.6-1.0) Estimated GFR (Cockcroft-Gault) 43.5 56.2 BUN/Creatinine Ratio 9 (6-20) 13 (6-20) Glucose Level 95mg/dL (70-99) 131mg/dL (70-99) Calcium Level 8.4mg/dL (8.5-10.1) 7.9mg/dL (8.5-10.1) Total Bilirubin 0.5mg/dL (0.2-1.0) 0.3mg/dL (0.2-1.0) Aspartate Amino Transf (AST/SGOT) 12U/L (15-37) 11U/L (15-37) Alanine Aminotransferase (ALT/SGPT) 11U/L (14-59) 11U/L (14-59) Alkaline Phosphatase 88U/L (46-116) 80U/L (46-116) Troponin I Quantitative 0.071ng/mL (0.000-0.055) 0.260ng/mL (0.000-0.055) EI-Qda-V-Type Natriuretic Peptide 1330pg/mL (0-124) Total Protein 7.9g/dL (6.4-8.2) 6.6g/dL (6.4-8.2) Albumin 3.2g/dL (3.4-5.0) 2.8g/dL (3.4-5.0) Albumin/Globulin Ratio 0.7 (1.0-1.7) 0.7 (1.0-1.7) Influenza Type A Antigen Negative (NEGATIVE) Influenza Type B Antigen Negative (NEGATIVE) O2 Saturation 80% (92-99) Arterial Blood pH 7.36 (7.35-7.45) Arterial Blood pH (Temp corrected) Arterial Blood pCO2 at Patient Temp 41mmHg (35-46) Arterial Blood pCO2 (Temp correct) mmHg Arterial Blood pO2 at Patient Temp 51mmHg (75-108) Arterial Blood pO2 (Temp corrected) mmHg Arterial Blood HCO3 23mmol/L (21-28) Arterial Blood Base Excess -3mmol/L (-3-3) FiO2 100.0 Magnesium Level 2.0mg/dL (1.8-2.4) Iron Level 13ug/dL (50-170) Total Iron Binding Capacity 268ug/dL (250-450) Iron Saturation 5% (15-34) Triglycerides Level 46mg/dL (0-150) Cholesterol Level 86mg/dL (0-200) LDL Cholesterol, Calculated 54mg/dL (0-100) VLDL Cholesterol, Calculated 9mg/dL (0-40) HDL Cholesterol 23mg/dL (40-60) Cholesterol/HDL Ratio 3.7 Test 09/24/16 09:30 09/24/16 09:34 09/24/16 11:00 09/24/16 14:05 Lactic Acid Level 0.8mmol/L (0.4-2.0) Nasal Screen MRSA (PCR) Negative (Negative) O2 Saturation 90% (92-99) Arterial Blood pH 7.37 (7.35-7.45) Arterial Blood pCO2 at Patient Temp 38mmHg (35-46) Arterial Blood pO2 at Patient Temp 64mmHg (75-108) Arterial Blood HCO3 21mmol/L (21-28) Arterial Blood Base Excess -4mmol/L (-3-3) FiO2 50 Troponin I Quantitative 0.170ng/mL (0.000-0.055) Test 09/24/16 21:40 09/25/16 06:00 09/25/16 08:00 Troponin I Quantitative 0.126ng/mL (0.000-0.055) White Blood Count 9.5x10^3/uL (4.0-11.0) Red Blood Count 3.24x10^6/uL (3.50-5.40) Hemoglobin 7.3g/dL (12.0-15.5) Hematocrit 24.4% (36.0-47.0) Mean Corpuscular Volume 75fL (79-100) Mean Corpuscular Hemoglobin 23pg (25-35) Mean Corpuscular Hemoglobin Concent 30g/dL (31-37) Red Cell Distribution Width 20.4% (11.5-14.5) Platelet Count 169x10^3/uL (140-400) Neutrophils (%) (Auto) 79% (31-73) Lymphocytes (%) (Auto) 12% (24-48) Monocytes (%) (Auto) 9% (0-9) Eosinophils (%) (Auto) 0% (0-3) Basophils (%) (Auto) 0% (0-3) Neutrophils # (Auto) 7.5x10^3uL (1.8-7.7) Lymphocytes # (Auto) 1.1x10^3/uL (1.0-4.8) Monocytes # (Auto) 0.8x10^3/uL (0.0-1.1) Eosinophils # (Auto) 0.0x10^3/uL (0.0-0.7) Basophils # (Auto) 0.0x10^3/uL (0.0-0.2) Sodium Level 140mmol/L (136-145) Potassium Level 4.0mmol/L (3.5-5.1) Chloride Level 109mmol/L (98-107) Carbon Dioxide Level 23mmol/L (21-32) Anion Gap 8 (6-14) Blood Urea Nitrogen 17mg/dL (7-20) Creatinine 1.1mg/dL (0.6-1.0) Estimated GFR (Cockcroft-Gault) 62.2 Glucose Level 112mg/dL (70-99) Calcium Level 8.5mg/dL (8.5-10.1) O2 Saturation 96% (92-99) Arterial Blood pH 7.34 (7.35-7.45) Arterial Blood pCO2 at Patient Temp 44mmHg (35-46) Arterial Blood pO2 at Patient Temp 89mmHg (75-108) Arterial Blood HCO3 23mmol/L (21-28) Arterial Blood Base Excess -3mmol/L (-3-3) FiO2 50 Laboratory Tests Test 09/24/16 11:00 09/24/16 14:05 09/24/16 21:40 09/25/16 06:00 O2 Saturation 90% (92-99) Arterial Blood pH 7.37 (7.35-7.45) Arterial Blood pCO2 at Patient Temp 38mmHg (35-46) Arterial Blood pO2 at Patient Temp 64mmHg (75-108) Arterial Blood HCO3 21mmol/L (21-28) Arterial Blood Base Excess -4mmol/L (-3-3) FiO2 50 Troponin I Quantitative 0.170ng/mL (0.000-0.055) 0.126ng/mL (0.000-0.055) White Blood Count 9.5x10^3/uL (4.0-11.0) Red Blood Count 3.24x10^6/uL (3.50-5.40) Hemoglobin 7.3g/dL (12.0-15.5) Hematocrit 24.4% (36.0-47.0) Mean Corpuscular Volume 75fL (79-100) Mean Corpuscular Hemoglobin 23pg (25-35) Mean Corpuscular Hemoglobin Concent 30g/dL (31-37) Red Cell Distribution Width 20.4% (11.5-14.5) Platelet Count 169x10^3/uL (140-400) Neutrophils (%) (Auto) 79% (31-73) Lymphocytes (%) (Auto) 12% (24-48) Monocytes (%) (Auto) 9% (0-9) Eosinophils (%) (Auto) 0% (0-3) Basophils (%) (Auto) 0% (0-3) Neutrophils # (Auto) 7.5x10^3uL (1.8-7.7) Lymphocytes # (Auto) 1.1x10^3/uL (1.0-4.8) Monocytes # (Auto) 0.8x10^3/uL (0.0-1.1) Eosinophils # (Auto) 0.0x10^3/uL (0.0-0.7) Basophils # (Auto) 0.0x10^3/uL (0.0-0.2) Sodium Level 140mmol/L (136-145) Potassium Level 4.0mmol/L (3.5-5.1) Chloride Level 109mmol/L (98-107) Carbon Dioxide Level 23mmol/L (21-32) Anion Gap 8 (6-14) Blood Urea Nitrogen 17mg/dL (7-20) Creatinine 1.1mg/dL (0.6-1.0) Estimated GFR (Cockcroft-Gault) 62.2 Glucose Level 112mg/dL (70-99) Calcium Level 8.5mg/dL (8.5-10.1) Test 09/25/16 08:00 O2 Saturation 96% (92-99) Arterial Blood pH 7.34 (7.35-7.45) Arterial Blood pCO2 at Patient Temp 44mmHg (35-46) Arterial Blood pO2 at Patient Temp 89mmHg (75-108) Arterial Blood HCO3 23mmol/L (21-28) Arterial Blood Base Excess -3mmol/L (-3-3) FiO2 50 Medications Active Scripts Medications Dose Route/Sig Days Date Category Proair Hfa Inhaler (Albuterol Sulfate) 8.5 Gm Hfa.aer.ad 2 Puff INH PRN DAILY PRN 09/23/16 Reported Pantoprazole Sodium 40 Mg Tablet. 1 Tab PO DAILY 09/23/16 Reported Coreg (Carvedilol) 12.5 Mg Tablet 1 Tab PO BID 09/23/16 Reported Aspir 81 (Aspirin) 81 Mg Tablet. 81 Mg PO 06/04/14 Reported Lasix (Furosemide) 20 Mg Tablet 40 Mg PO DAILY 06/04/14 Reported Impression . 1. Acute on chronic hypoxic respiratory failure in a patient normally is on 4 liters of oxygen for primary pulmonary hypertension for which she is followed at . Now comes in with fever, progressive dyspnea and bilateral interstitial infiltrates involving the lower lobes. Most likely this is related to viral pneumonitis. Influenza screen is negative. 2. Mild hypotension may be related to dehydration. improved 3. History of Primary pulmonary hypertension being followed at . She takes Letairis and Adempas. I do not have records available from regarding the workup for primary pulmonary hypertension and the etiology. We will continue with her home pulmonary vasodilators, hold if blood pressure remains low. 4. Minimal history of tobacco use. Plan . 1. Continue present Duo Nebs. 2. Would hold off on Lasix. 3. Continue empiric antibiotic. 4. Continue oral steroids. 5. OFF BiPAP . gradually wean FIO2 to keep sats 92-94%. 6. Continue pulmonary vasodilators. 7. Monitor blood pressure closely. 8. DVT prophylaxis with Lovenox. 9. Obtain records from . 10. Ct chest w/o contrast pending/ echo with KRZYSZTOF 81 10. Discussed with RN and RT. cct 25 min LAZ BARON MD Sep 25, 2016 10:05
[2016-09-25] MEDS: ENOXAPARIN 40 MG/0.4 ML DISP.SYRIN. SQ SCH (11:50)
[2016-09-25] MEDS: PREDNISONE 20 MG TABLET PO SCH (11:50)
[2016-09-25] MEDS: LETAIRIS 10 MG PO SCH (11:51)
[2016-09-25] MEDS: PANTOPRAZOLE 40 MG TABLET. PO SCH (11:51)
[2016-09-25] MEDS: ADEMPAS 2 MG PO SCH ×3 (11:51→21:31)
[2016-09-25] MEDS ORDERED: POLYETHYLENE GLYCOL 3350 17 GM PACKET. PO ONE (12:00)
[2016-09-25] MEDS: IPRATRPIUM/ALBUTEROL 0.5/2.5MG 3 ML NEBU. NEB SCH ×4 (12:07→22:00)
--- NOTE | 2016-09-25 13:54 | RAD ---
CT study of the chest without contrast Clinical indications: Shortness of air. Pneumonia. Interstitial lung disease. Comparison: June 05, 2014. Technique: Noncontrast helical CT scanning of the chest was performed. PQRS Compliance Statement: One or more of the following individualized dose reduction techniques were utilized for this examination: 1. Automated exposure control 2. Adjustment of the mA and/or kV according to patient size 3. Use of iterative reconstruction technique Findings: Mediastinal lymphadenopathy is again noted and has not changed significantly. However, there is enlarging right axillary lymph node which measures 1.7 cm. Evaluation for hilar lymphadenopathy is difficult without contrast. The heart size is enlarged but no abnormal pericardial effusion is seen. Calcified atheromatous disease of the coronary arteries is seen. Focal pleural thickening or consolidative lung infiltrate of the medial posterior left lower lobe region and the posterior medial aspects of the right lower lobe region are seen which is a new finding. There is no pleural effusion present. There is some groundglass lung infiltrate within the inferior segment of the lingula which is new. There is a calcified granuloma of the right lower lobe. No pneumothorax is seen. The proximal bronchial tree is patent. No adrenal mass is seen. Again seen is chronic compression deformity of T6 which is unchanged. No osteolytic process is seen. IMPRESSION: New pleural thickening or focal consolidative infiltrate of the posterior medial aspects of both lower lobes. This could represent infection or neoplasia or inflammatory disease such as focal consolidative interstitial pulmonary fibrosis (although there are no findings of honeycombing or interstitial pulmonary fibrosis elsewhere). There is groundglass lung infiltrate present within the inferior segment of the lingula which could represent atelectasis or alveolitis. Stable mediastinal lymphadenopathy. However, there is a new enlarged right axillary lymph node. This lymph node may represent a new manifestation of the mediastinal reactive lymphadenopathy is there is a history of sarcoidosis or granulomatous disease etc. Certainly lymphoma is a possibility if there is a clinical history of such. Another consideration would include abnormally enlarged lymph node related to breast malignancy. Therefore, recommend bilateral mammography and right axillary sonography. Chronic cardiomegaly with calcified atheromatous disease of the coronary arteries.
--- NOTE | 2016-09-25 14:11 | PDOC ---
JAVIER GARIBAY DRIER ATTENDANT 09/25/16 1411: CARDIO Progress Notes Date and Time Date of Service 09/25/16 Time of Evaluation 1050 Subjective Subjective: No Chest Pain, No Palpitations, No Dizziness, Other (breathing improved. on NC) Vitals Vitals Vital Signs Date Time Temp Pulse Resp B/P Pulse Ox O2 Delivery O2 Flow Rate FiO2 09/25/16 12:09 98 High Flow Nasal Cannula 10.0 09/25/16 08:00 59 100/79 09/25/16 07:00 97.5 18 97.5 Weight Weight [ ] Input and Output Intake and Output Intake and Output 09/25/16 07:00 Intake Total 1775 ml Output Total 450 ml Balance 1325 ml Intake Oral 570 ml IV Total 1205 ml Output Urine Total 450 ml # Voids 1 Laboratory Labs Laboratory Tests Test 09/24/16 21:40 09/25/16 06:00 09/25/16 08:00 Troponin I Quantitative 0.126ng/mL (0.000-0.055) White Blood Count 9.5x10^3/uL (4.0-11.0) Red Blood Count 3.24x10^6/uL (3.50-5.40) Hemoglobin 7.3g/dL (12.0-15.5) Hematocrit 24.4% (36.0-47.0) Mean Corpuscular Volume 75fL (79-100) Mean Corpuscular Hemoglobin 23pg (25-35) Mean Corpuscular Hemoglobin Concent 30g/dL (31-37) Red Cell Distribution Width 20.4% (11.5-14.5) Platelet Count 169x10^3/uL (140-400) Neutrophils (%) (Auto) 79% (31-73) Lymphocytes (%) (Auto) 12% (24-48) Monocytes (%) (Auto) 9% (0-9) Eosinophils (%) (Auto) 0% (0-3) Basophils (%) (Auto) 0% (0-3) Neutrophils # (Auto) 7.5x10^3uL (1.8-7.7) Lymphocytes # (Auto) 1.1x10^3/uL (1.0-4.8) Monocytes # (Auto) 0.8x10^3/uL (0.0-1.1) Eosinophils # (Auto) 0.0x10^3/uL (0.0-0.7) Basophils # (Auto) 0.0x10^3/uL (0.0-0.2) Sodium Level 140mmol/L (136-145) Potassium Level 4.0mmol/L (3.5-5.1) Chloride Level 109mmol/L (98-107) Carbon Dioxide Level 23mmol/L (21-32) Anion Gap 8 (6-14) Blood Urea Nitrogen 17mg/dL (7-20) Creatinine 1.1mg/dL (0.6-1.0) Estimated GFR (Cockcroft-Gault) 62.2 Glucose Level 112mg/dL (70-99) Calcium Level 8.5mg/dL (8.5-10.1) O2 Saturation 96% (92-99) Arterial Blood pH 7.34 (7.35-7.45) Arterial Blood pCO2 at Patient Temp 44mmHg (35-46) Arterial Blood pO2 at Patient Temp 89mmHg (75-108) Arterial Blood HCO3 23mmol/L (21-28) Arterial Blood Base Excess -3mmol/L (-3-3) FiO2 50 Microbiology Micro Microbiology 09/23/16 Blood Culture - Preliminary, Resulted NO GROWTH AFTER 1 DAY Physical Exam HEENT: Neck Supple W Full Motion Chest: Symmetric LUNGS: Clear to Auscultation, Other (diminished bases ) Heart: S1S2, RRR Abdomen: Soft N/T Extremities: No Edema, No Calf Tenderness, Other Neurology: alert, oriented, follow commands Assessment Assessment 1. Elevated troponin 2. Acute on chronic hypoxic respiratory failure 3. AECOPD 4. Severs pulmonary hypertension- PA pressure 81 5. bilateral infiltrates- ? viral pneumonitis 6. Hypertension 7. Febrile Recommendations Echo with preserved LV function and normal wall motion. Hold antiHTN as warranted. compensated from HF standpoint Continued management of respiratory failure per pulmonary supportive care ANN ASHFORD MD 09/25/161911: CARDIO Progress Notes Plan Plan Patient seen and examined. Agree with above nurse practitioner note. No acute events overnight. She reports feeling better today and is more ambulatory. She's had multiple bouts of hypotension with systolic blood pressure in the low 90s. Her pulmonary hypertension medications and her normal antihypertensives have been held. No obvious fevers are noted. Examination is unchanged from yesterday. Laboratory studies reviewed. We will plan on continuation of her pulmonary hypertension medications with some dose changes, discussed with RN. We will hold her systemic antihypertensives. Continue IV fluids. Urine output is good. If she has any systemic issues are further problems will discuss her care with pulmonary service. JAVIER GARIBAY APRN Sep 25, 2016 14:11 ANN ASHFORD MD Sep 25, 2016 19:12
[2016-09-25] MEDS: ASPIRIN ENTERIC COATED 81 MG TABLET.DR. PO SCH (17:33)
[2016-09-25] MEDS: ALBUTEROL SULFATE 2.5 MG/3 ML NEBU. NEB PRN (22:45)
[2016-09-26] VITALS (23 sets, daily range): BP systolic 104–131; BP diastolic 60–79
[2016-09-26] MEDS: IV NORMAL SALINE 1000ML BAG 1,000 ML IV SCH (00:30)
[2016-09-26] MEDS: LEVOFLOXACIN 750 MG TABLET. PO SCH (06:09)
[2016-09-26] MEDS ORDERED: ACETAMINOPHEN 325 MG TABLET. PO PRN (06:30)
[2016-09-26 07:14] LABS: CALCIUM 8.4 mg/dL (8.5-10.1); GFR 69.4
--- NOTE | 2016-09-26 07:17 | PDOC ---
PULMONARY PROGRESS NOTES Subjective on 02 7 lpm, used bipap last night, no pain, has sob, cough. Vitals Vital Signs Date Time Temp Pulse Resp B/P Pulse Ox O2 Delivery O2 Flow Rate FiO2 09/26/16 06:00 71 20 111/79 96 High Flow Nasal Cannula 10.0 09/26/16 05:00 98.2 98.2 Comments ros, as mentioned above, other sys otherwise neg General: Alert, No acute distress HEENT: Other (nc, at perrl, throat, nose clear) Lungs: Other (Diminished Breath Sounds) Cardiovascular: S1 Abdomen: Soft Extremities: No Edema Labs Laboratory Tests Test 09/24/16 07:30 09/24/16 09:30 09/24/16 09:34 09/24/16 11:00 White Blood Count 4.7x10^3/uL (4.0-11.0) Red Blood Count 3.50x10^6/uL (3.50-5.40) Hemoglobin 8.0g/dL (12.0-15.5) Hematocrit 26.2% (36.0-47.0) Mean Corpuscular Volume 75fL (79-100) Mean Corpuscular Hemoglobin 23pg (25-35) Mean Corpuscular Hemoglobin Concent 31g/dL (31-37) Red Cell Distribution Width 19.9% (11.5-14.5) Platelet Count 179x10^3/uL (140-400) Neutrophils (%) (Auto) 87% (31-73) Lymphocytes (%) (Auto) 11% (24-48) Monocytes (%) (Auto) 2% (0-9) Eosinophils (%) (Auto) 0% (0-3) Basophils (%) (Auto) 0% (0-3) Neutrophils # (Auto) 4.0x10^3uL (1.8-7.7) Lymphocytes # (Auto) 0.5x10^3/uL (1.0-4.8) Monocytes # (Auto) 0.1x10^3/uL (0.0-1.1) Eosinophils # (Auto) 0.0x10^3/uL (0.0-0.7) Basophils # (Auto) 0.0x10^3/uL (0.0-0.2) Sodium Level 143mmol/L (136-145) Potassium Level 4.1mmol/L (3.5-5.1) Chloride Level 107mmol/L (98-107) Carbon Dioxide Level 24mmol/L (21-32) Anion Gap 12 (6-14) Blood Urea Nitrogen 15mg/dL (7-20) Creatinine 1.2mg/dL (0.6-1.0) Estimated GFR (Cockcroft-Gault) 56.2 BUN/Creatinine Ratio 13 (6-20) Glucose Level 131mg/dL (70-99) Calcium Level 7.9mg/dL (8.5-10.1) Magnesium Level 2.0mg/dL (1.8-2.4) Iron Level 13ug/dL (50-170) Total Iron Binding Capacity 268ug/dL (250-450) Iron Saturation 5% (15-34) Total Bilirubin 0.3mg/dL (0.2-1.0) Aspartate Amino Transf (AST/SGOT) 11U/L (15-37) Alanine Aminotransferase (ALT/SGPT) 11U/L (14-59) Alkaline Phosphatase 80U/L (46-116) Troponin I Quantitative 0.260ng/mL (0.000-0.055) Total Protein 6.6g/dL (6.4-8.2) Albumin 2.8g/dL (3.4-5.0) Albumin/Globulin Ratio 0.7 (1.0-1.7) Triglycerides Level 46mg/dL (0-150) Cholesterol Level 86mg/dL (0-200) LDL Cholesterol, Calculated 54mg/dL (0-100) VLDL Cholesterol, Calculated 9mg/dL (0-40) HDL Cholesterol 23mg/dL (40-60) Cholesterol/HDL Ratio 3.7 Lactic Acid Level 0.8mmol/L (0.4-2.0) Nasal Screen MRSA (PCR) Negative (Negative) O2 Saturation 90% (92-99) Arterial Blood pH 7.37 (7.35-7.45) Arterial Blood pCO2 at Patient Temp 38mmHg (35-46) Arterial Blood pO2 at Patient Temp 64mmHg (75-108) Arterial Blood HCO3 21mmol/L (21-28) Arterial Blood Base Excess -4mmol/L (-3-3) FiO2 50 Test 09/24/16 14:05 2/9/17 21:40 09/25/16 06:00 09/25/16 08:00 Troponin I Quantitative 0.170ng/mL (0.000-0.055) 0.126ng/mL (0.000-0.055) White Blood Count 9.5x10^3/uL (4.0-11.0) Red Blood Count 3.24x10^6/uL (3.50-5.40) Hemoglobin 7.3g/dL (12.0-15.5) Hematocrit 24.4% (36.0-47.0) Mean Corpuscular Volume 75fL (79-100) Mean Corpuscular Hemoglobin 23pg (25-35) Mean Corpuscular Hemoglobin Concent 30g/dL (31-37) Red Cell Distribution Width 20.4% (11.5-14.5) Platelet Count 169x10^3/uL (140-400) Neutrophils (%) (Auto) 79% (31-73) Lymphocytes (%) (Auto) 12% (24-48) Monocytes (%) (Auto) 9% (0-9) Eosinophils (%) (Auto) 0% (0-3) Basophils (%) (Auto) 0% (0-3) Neutrophils # (Auto) 7.5x10^3uL (1.8-7.7) Lymphocytes # (Auto) 1.1x10^3/uL (1.0-4.8) Monocytes # (Auto) 0.8x10^3/uL (0.0-1.1) Eosinophils # (Auto) 0.0x10^3/uL (0.0-0.7) Basophils # (Auto) 0.0x10^3/uL (0.0-0.2) Sodium Level 140mmol/L (136-145) Potassium Level 4.0mmol/L (3.5-5.1) Chloride Level 109mmol/L (98-107) Carbon Dioxide Level 23mmol/L (21-32) Anion Gap 8 (6-14) Blood Urea Nitrogen 17mg/dL (7-20) Creatinine 1.1mg/dL (0.6-1.0) Estimated GFR (Cockcroft-Gault) 62.2 Glucose Level 112mg/dL (70-99) Calcium Level 8.5mg/dL (8.5-10.1) O2 Saturation 96% (92-99) Arterial Blood pH 7.34 (7.35-7.45) Arterial Blood pCO2 at Patient Temp 44mmHg (35-46) Arterial Blood pO2 at Patient Temp 89mmHg (75-108) Arterial Blood HCO3 23mmol/L (21-28) Arterial Blood Base Excess -3mmol/L (-3-3) FiO2 50 Laboratory Tests Test 09/25/16 08:00 O2 Saturation 96% (92-99) Arterial Blood pH 7.34 (7.35-7.45) Arterial Blood pCO2 at Patient Temp 44mmHg (35-46) Arterial Blood pO2 at Patient Temp 89mmHg (75-108) Arterial Blood HCO3 23mmol/L (21-28) Arterial Blood Base Excess -3mmol/L (-3-3) FiO2 50 Medications Active Scripts Medications Dose Route/Sig Days Date Category Proair Hfa Inhaler (Albuterol Sulfate) 8.5 Gm Hfa.aer.ad 2 Puff INH PRN DAILY PRN 09/23/16 Reported Pantoprazole Sodium 40 Mg Tablet.dr 1 Tab PO DAILY 09/23/16 Reported Coreg (Carvedilol) 12.5 Mg Tablet 1 Tab PO BID 09/23/16 Reported Aspir 81 (Aspirin) 81 Mg Tablet.dr 81 Mg PO 06/04/14 Reported Lasix (Furosemide) 20 Mg Tablet 40 Mg PO DAILY 06/04/[address] of chest reviewed, IMPRESSION: New pleural thickening or focal consolidative infiltrate of the posterior medial aspects of both lower lobes. This could represent infection or neoplasia or inflammatory disease such as focal consolidative interstitial pulmonary fibrosis (although there are no findings of honeycombing or interstitial pulmonary fibrosis elsewhere). There is groundglass lung infiltrate present within the inferior segment of the lingula which could represent atelectasis or alveolitis. Stable mediastinal lymphadenopathy. However, there is a new enlarged right axillary lymph node. This lymph node may represent a new manifestation of the mediastinal reactive lymphadenopathy is there is a history of sarcoidosis or granulomatous disease etc. Certainly lymphoma is a possibility if there is a clinical history of such. Another consideration would include abnormally enlarged lymph node related to breast malignancy. Therefore, recommend bilateral mammography and right axillary sonography. Chronic cardiomegaly with calcified atheromatous disease of the coronary arteries. Impression . 1. Acute on chronic hypoxic respiratory failure in a patient normally is on 4 liters of oxygen for primary pulmonary hypertension for which she is followed at . Now comes in with fever, progressive dyspnea and bilateral interstitial infiltrates involving the lower lobes. Most likely this is related to viral pneumonitis. Influenza screen is negative. 2. Mild hypotension may be related to dehydration. improved 3. History of Primary pulmonary hypertension being followed at . She takes Letairis and Adempas. I do not have records available from regarding the workup for primary pulmonary hypertension and the etiology. We will continue with her home pulmonary vasodilators, hold if blood pressure remains low. 4. Minimal history of tobacco use. 5. abnl cxr and ct of chest. 6. ? acute diastolic chf Plan . 1. Continue present Duo Nebs. 2. Lasix 20 mg iv, monitor k, cr. 3. Continue empiric antibiotic. 4. Continue steroids. 5. BiPAP prn during day, cont at night . setting reviewed. 6. Continue pulmonary vasodilators. 7. Monitor blood pressure closely. 8. DVT prophylaxis with Lovenox. 9. Obtain records from . 10. Ct chest w/o contrast reviewed, ? mammogram, defer to primary, would need fu ct in 4-6 wks. echo with PA 81 10. elevate hob Discussed with RN and RT, pt. VESTA ALEX MD Sep 26, 2016 07:17
[2016-09-26 07:19] LABS: BASO % 0 % (0-3); EOS % 0 % (0-3); HEMATOCRIT 24.8 % (36.0-47.0); HEMOGLOBIN 7.5 g/dL (12.0-15.5); LYMPH # 1.1 x10^3/uL (1.0-4.8); LYMPH % 12 % (24-48); MEAN CORPUSCULAR HEMOGLOBIN 23 pg (25-35); MEAN CORPUSCULAR HGB CONC 30 g/dL (31-37); MEAN CORPUSCULAR VOLUME 75 fL (79-100); MONO % 7 % (0-9); NEUT % 82 % (31-73); PLATELET COUNT 168 x10^3/uL (140-400); RED BLOOD COUNT 3.31 x10^6/uL (3.50-5.40); RED CELL DISTRIBUTION WIDTH 20.3 % (11.5-14.5); WHITE BLOOD COUNT 9.5 x10^3/uL (4.0-11.0)
[2016-09-26] MEDS ORDERED: FUROSEMIDE 20 MG/2 ML VIAL IVP ONE (07:30)
[2016-09-26] MEDS: PANTOPRAZOLE 40 MG TABLET. PO SCH (08:00)
[2016-09-26] MEDS: CARVEDILOL 12.5 MG TABLET PO SCH ×2 (08:00→17:00)
[2016-09-26] MEDS: ENOXAPARIN 40 MG/0.4 ML DISP.SYRIN. SQ SCH (08:03)
--- NOTE | 2016-09-26 08:30 | PDOC ---
CARDIOLOGY PROGRESS NOTE SUBJECTIVE: No acute events overnight. Mild hypotension, otherwise stable. Denies chest pain. Breathing not yet quite to baseline. OBJECTIVE: Vital SIgns: Vital Signs Date Time Temp Pulse Resp B/P Pulse Ox O2 Delivery O2 Flow Rate FiO2 09/26/16 06:00 71 20 111/79 96 High Flow Nasal Cannula 10.0 09/26/16 05:00 98.2 98.2 I & O +2300 Objective: Gen: A/O x3. NAD CVS: RRR, no m/r/g PULM: Decreased breath sounds throughout. ABD: Soft, NT/ND +BS EXT: No edema. NEURO: No focal deficits. CURRENT MEDICATIONS: Meds reviewed ASSESSMENT: 1. Primary pulmonary HTN 2. Acute viral illness 3. Mild hypotension Problems: PLAN: 1. Stop IVF 2. Maintain even I/O's, lasix prn 3. Continue to wean O2 as tolerated 4. Supportive care from CV perspective. Will follow along peripherally. Will need to have close f/u at [facility] clinic within 48 hrs after dc. ANN ASHFORD MD Sep 26, 2016 08:30
[2016-09-26] MEDS: BUDESONIDE 0.5 MG/2 ML NEBU NEB SCH ×2 (08:31→20:23)
[2016-09-26] MEDS: IPRATRPIUM/ALBUTEROL 0.5/2.5MG 3 ML NEBU. NEB SCH ×5 (08:31→23:57)
[2016-09-26] MEDS: PREDNISONE 20 MG TABLET PO SCH (08:51)
[2016-09-26] MEDS: ASPIRIN ENTERIC COATED 81 MG TABLET.DR. PO SCH (08:52)
[2016-09-26] MEDS ORDERED: ADEMPAS 2 MG PO SCH (09:00)
[2016-09-26] MEDS ORDERED: NON FORMULARY ITEM PO SCH (09:00)
[2016-09-26] MEDS: LETAIRIS 10 MG PO SCH (10:27)
[2016-09-26] MEDS: ADEMPAS 2 MG PO SCH ×2 (10:27→20:41)
--- NOTE | 2016-09-26 18:40 | PDOC ---
PROGRESS NOTES Chief Complaint Chief Complaint A/P 1. Acute Respiratory Distress on Chronic Hypoxic Failure 2. COPD 3. Pulmonary HTN 4. HTN 5. Hyperlipidemia 6. CHF 7. CKD 3 8. Anemia of Chronic Disease 9. elevated troponin due to hypoxia Plan seen in ICU Steroid taper Levaquin PRN BIPAP supplemental oxygen 6l at rest PRN nebulizations Follow cardiology recommendations. dc ivf, out pt ku follow up in 48hr of DC Out pt mammogram monitor anemia Echo results reviewed, DVT prophylaxis. History of Present Illness History of Present Illness Seen icu doing better supplemental oxygen Vitals Vitals Vital Signs Date Time Temp Pulse Resp B/P Pulse Ox O2 Delivery O2 Flow Rate FiO2 09/26/16 17:00 61 102/66 09/26/16 16:01 High Flow Nasal Cannula 6.0 09/26/16 16:00 98.8 90 98.8 09/26/16 06:00 20 Physical Exam General: Alert, Oriented X3, Cooperative, mild distress Heart: Regular rate, Normal S1, Normal S2, Other (heart tones difficutly to appreciate) Lungs: Other (Diminished Breath Sounds) Abdomen: Soft, No tenderness Extremities: Normal pulses, Other (trace LE edema ) Skin: No breakdown, No significant lesion Labs LABS Laboratory Tests Test 09/26/16 06:03 White Blood Count 9.5x10^3/uL (4.0-11.0) Red Blood Count 3.31x10^6/uL (3.50-5.40) Hemoglobin 7.5g/dL (12.0-15.5) Hematocrit 24.8% (36.0-47.0) Mean Corpuscular Volume 75fL (79-100) Mean Corpuscular Hemoglobin 23pg (25-35) Mean Corpuscular Hemoglobin Concent 30g/dL (31-37) Red Cell Distribution Width 20.3% (11.5-14.5) Platelet Count 168x10^3/uL (140-400) Neutrophils (%) (Auto) 82% (31-73) Lymphocytes (%) (Auto) 12% (24-48) Monocytes (%) (Auto) 7% (0-9) Eosinophils (%) (Auto) 0% (0-3) Basophils (%) (Auto) 0% (0-3) Neutrophils # (Auto) 7.8x10^3uL (1.8-7.7) Lymphocytes # (Auto) 1.1x10^3/uL (1.0-4.8) Monocytes # (Auto) 0.7x10^3/uL (0.0-1.1) Eosinophils # (Auto) 0.0x10^3/uL (0.0-0.7) Basophils # (Auto) 0.0x10^3/uL (0.0-0.2) Sodium Level 143mmol/L (136-145) Potassium Level 4.0mmol/L (3.5-5.1) Chloride Level 110mmol/L (98-107) Carbon Dioxide Level 24mmol/L (21-32) Anion Gap 9 (6-14) Blood Urea Nitrogen 14mg/dL (7-20) Creatinine 1.0mg/dL (0.6-1.0) Estimated GFR (Cockcroft-Gault) 69.4 Glucose Level 86mg/dL (70-99) Calcium Level 8.4mg/dL (8.5-10.1) Assessment and Plan Assessmemt and Plan Problems Medical Problems: (1) COPD exacerbation Status: Acute (2) Pneumonia Status: Acute Problems: Comment Review of Relevant I have reviewed the following items marnie (where applicable) has been applied. Labs Laboratory Tests Test 09/24/16 21:40 09/25/16 06:00 09/25/16 08:00 09/26/16 06:03 Troponin I Quantitative 0.126ng/mL (0.000-0.055) White Blood Count 9.5x10^3/uL (4.0-11.0) 9.5x10^3/uL (4.0-11.0) Red Blood Count 3.24x10^6/uL (3.50-5.40) 3.31x10^6/uL (3.50-5.40) Hemoglobin 7.3g/dL (12.0-15.5) 7.5g/dL (12.0-15.5) Hematocrit 24.4% (36.0-47.0) 24.8% (36.0-47.0) Mean Corpuscular Volume 75fL (79-100) 75fL (79-100) Mean Corpuscular Hemoglobin 23pg (25-35) 23pg (25-35) Mean Corpuscular Hemoglobin Concent 30g/dL (31-37) 30g/dL (31-37) Red Cell Distribution Width 20.4% (11.5-14.5) 20.3% (11.5-14.5) Platelet Count 169x10^3/uL (140-400) 168x10^3/uL (140-400) Neutrophils (%) (Auto) 79% (31-73) 82% (31-73) Lymphocytes (%) (Auto) 12% (24-48) 12% (24-48) Monocytes (%) (Auto) 9% (0-9) 7% (0-9) Eosinophils (%) (Auto) 0% (0-3) 0% (0-3) Basophils (%) (Auto) 0% (0-3) 0% (0-3) Neutrophils # (Auto) 7.5x10^3uL (1.8-7.7) 7.8x10^3uL (1.8-7.7) Lymphocytes # (Auto) 1.1x10^3/uL (1.0-4.8) 1.1x10^3/uL (1.0-4.8) Monocytes # (Auto) 0.8x10^3/uL (0.0-1.1) 0.7x10^3/uL (0.0-1.1) Eosinophils # (Auto) 0.0x10^3/uL (0.0-0.7) 0.0x10^3/uL (0.0-0.7) Basophils # (Auto) 0.0x10^3/uL (0.0-0.2) 0.0x10^3/uL (0.0-0.2) Sodium Level 140mmol/L (136-145) 143mmol/L (136-145) Potassium Level 4.0mmol/L (3.5-5.1) 4.0mmol/L (3.5-5.1) Chloride Level 109mmol/L (98-107) 110mmol/L (98-107) Carbon Dioxide Level 23mmol/L (21-32) 24mmol/L (21-32) Anion Gap 8 (6-14) 9 (6-14) Blood Urea Nitrogen 17mg/dL (7-20) 14mg/dL (7-20) Creatinine 1.1mg/dL (0.6-1.0) 1.0mg/dL (0.6-1.0) Estimated GFR (Cockcroft-Gault) 62.2 69.4 Glucose Level 112mg/dL (70-99) 86mg/dL (70-99) Calcium Level 8.5mg/dL (8.5-10.1) 8.4mg/dL (8.5-10.1) O2 Saturation 96% (92-99) Arterial Blood pH 7.34 (7.35-7.45) Arterial Blood pCO2 at Patient Temp 44mmHg (35-46) Arterial Blood pO2 at Patient Temp 89mmHg (75-108) Arterial Blood HCO3 23mmol/L (21-28) Arterial Blood Base Excess -3mmol/L (-3-3) FiO2 50 Laboratory Tests Test 09/26/16 06:03 White Blood Count 9.5x10^3/uL (4.0-11.0) Red Blood Count 3.31x10^6/uL (3.50-5.40) Hemoglobin 7.5g/dL (12.0-15.5) Hematocrit 24.8% (36.0-47.0) Mean Corpuscular Volume 75fL (79-100) Mean Corpuscular Hemoglobin 23pg (25-35) Mean Corpuscular Hemoglobin Concent 30g/dL (31-37) Red Cell Distribution Width 20.3% (11.5-14.5) Platelet Count 168x10^3/uL (140-400) Neutrophils (%) (Auto) 82% (31-73) Lymphocytes (%) (Auto) 12% (24-48) Monocytes (%) (Auto) 7% (0-9) Eosinophils (%) (Auto) 0% (0-3) Basophils (%) (Auto) 0% (0-3) Neutrophils # (Auto) 7.8x10^3uL (1.8-7.7) Lymphocytes # (Auto) 1.1x10^3/uL (1.0-4.8) Monocytes # (Auto) 0.7x10^3/uL (0.0-1.1) Eosinophils # (Auto) 0.0x10^3/uL (0.0-0.7) Basophils # (Auto) 0.0x10^3/uL (0.0-0.2) Sodium Level 143mmol/L (136-145) Potassium Level 4.0mmol/L (3.5-5.1) Chloride Level 110mmol/L (98-107) Carbon Dioxide Level 24mmol/L (21-32) Anion Gap 9 (6-14) Blood Urea Nitrogen 14mg/dL (7-20) Creatinine 1.0mg/dL (0.6-1.0) Estimated GFR (Cockcroft-Gault) 69.4 Glucose Level 86mg/dL (70-99) Calcium Level 8.4mg/dL (8.5-10.1) Microbiology 09/23/16 Blood Culture - Preliminary, Resulted NO GROWTH AFTER 2 DAYS Medications Current Medications Albuterol Sulfate (Ventolin Neb Soln) 2.5 mg STK-MED ONCE .ROUTE ; Start at 19:48; Stop 09/23/16 at 19:49; Status DC Methylprednisolone Sodium Succinate (Solu-Medrol 125mg Vial) 125 mg 1X ONCE IV Last administered on 09/23/16 19:59; Start 09/23/16 at 19:45; Stop 09/23/16 at 19:50; Status DC Albuterol Sulfate (Ventolin Neb Soln) 10 mg 1X ONCE CONT NEB Last administered on 09/23/16 20:00; Start 09/23/16 at 19:45; Stop 09/23/16 at 19:50; Status DC Acetaminophen 1000 mg 1,000 mg 1X ONCE PO Last administered on 09/23/16 20:25 ; Start 09/23/16 at 20:30; Stop 09/23/16 at 20:31; Status DC Levofloxacin/ Dextrose (LEVAQUIN 750mg PREMIX) 150 ml @ 100 mls/hr 1X ONCE IV Last administered on 09/23/16 21:16; Start 09/23/16 at 21:00; Stop 09/23/16 at 22:29; Status DC Albuterol/ Ipratropium (Duoneb) 3 ml RTQID NEB ; Start 09/24/16 at 08:00; Stop at 08:00; Status DC Enoxaparin Sodium (Lovenox Per Pharmacy Prophylaxis Dosing) 1 each PRN DAILY PRN MC SEE COMMENTS; Start 09/23/16 at 22:45 Albuterol/ Ipratropium (Duoneb) 3 ml Q4HRS W/A NEB Last administered on 15:59; Start 09/24/16 at 10:00 Albuterol Sulfate (Ventolin Neb Soln) 2.5 mg PRN QID PRN NEB dyspnea Last administered on 09/25/16 22:45; Start 09/23/16 at 22:45 Budesonide (Pulmicort) 0.5 mg RTBID NEB Last administered on 09/26/16 08:31; Start 09/24/16 at 08:00 Prednisone (Prednisone) 60 mg DAILY08 PO Last administered on 09/26/16 08:51; Start 09/24/16 at 08:00 Levofloxacin (Levaquin) 750 mg DAILY06 PO Last administered on 09/26/16 06:09 ; Start 09/24/16 at 06:00 Aspirin (Ecotrin) 324 mg DAILY PO Last administered on 09/26/16 08:52; Start 09/23/16 at 22:45 Carvedilol (Coreg) 12.5 mg BIDWMEALS PO ; Start 09/24/16 at 08:00 Furosemide (Lasix) 40 mg DAILY PO ; Start 09/24/16 at 09:00; Stop 09/24/16 at 09: 52; Status DC Pantoprazole Sodium (Protonix) 40 mg DAILYAC PO Last administered on 09/26/16 08:00; Start 09/24/16 at 07:30 Potassium Chloride (Klor-Con) 20 meq 1X ONCE PO Last administered on 09/24/16 00:22; Start 09/23/16 at 23:00; Stop 09/23/16 at 23:01; Status DC Enoxaparin Sodium (Lovenox 40mg Syringe) 40 mg DAILY SQ Last administered on 08:03; Start 09/24/16 at 23:00 Non-Formulary Medication 1 ea TID PO Last administered on 09/25/16 11:51; Start 09/24/16 at 21:00; Stop 09/25/16 at 19:21; Status DC Non-Formulary Medication 1 ea DAILY PO Last administered on 09/26/16 10:27; Start 09/24/16 at 09:00 Sildenafil Citrate 20 mg 20 mg TID PO Last administered on 09/24/16 00:22; Start 09/23/16 at 23:30; Stop 09/24/16 at 14:00; Status DC Sodium Chloride (Iv Sodium Chloride 0.9% 1000ml Bag) 1,000 ml @ 592.5 mls/ hr Q1H42M IV Last administered on 09/24/16 04:34; Start 09/24/16 at 00:30; Stop 09/24/16 at 04:29; Status DC Info (Do NOT chart on this placeholder) 1 each 1X ONCE MC ; Start 09/24/16 at 01 :30; Stop 09/24/16 at 01:31; Status UNV Pneumococcal Polyvalent Vaccine (Do NOT chart on this placeholder) 1 each 1X ONCE MC ; Start 09/24/16 at 01:30; Stop 09/24/16 at 01:31; Status UNV Influenza Virus Vaccine Quadrival (Fluarix Quad [id number] Syringe) 0.5 ml ONCE ONCE VAX IM ; Start 09/24/16 at 09:00; Stop 09/24/16 at 09:01; Status DC Pneumococcal Polyvalent Vaccine 0.5 ml 0.5 ml ONCE ONCE VAX IM ; Start 09/24/16 at 09:00; Stop 09/24/16 at 09:01; Status DC Sodium Chloride 500 ml @ 500 mls/hr 1X ONCE IV Last administered on 09/24/16 07:45; Start 09/24/16 at 07:30; Stop 09/24/16 at 08:29; Status DC Sodium Chloride 1,000 ml @ 100 mls/hr Q10H IV Last administered on 09/26/16 00:30; Start 09/24/16 at 08:30; Stop 09/26/16 at 12:16; Status DC Sodium Chloride (Iv Sodium Chloride 0.9% 500ml Bag) 500 ml @ 500 mls/hr 1X ONCE IV ; Start 09/24/16 at 10:00; Stop 09/24/16 at 10:59; Status DC Alprazolam (Xanax) 0.5 mg PRN Q4HRS PRN PO ANXIETY / AGITATION Last administered on 09/25/16 20:23; Start 09/25/16 at 00:30 Polyethylene Glycol (miraLAX PACKET) 34 gm 1X ONCE PO Last administered on 11:51; Start 09/25/16 at 12:00; Stop 09/25/16 at 12:01; Status DC Non-Formulary Medication 1 ea BID PO ; Start 09/26/16 at 09:00; Status UNV Non-Formulary Medication 1 ea BID PO ; Start 09/26/16 at 09:00; Stop 09/26/16 at 09:00; Status DC Non-Formulary Medication 1 ea BID PO Last administered on 09/26/16 10:27; Start 09/25/16 at 21:00 Acetaminophen (Tylenol) 650 mg PRN Q6HRS PRN PO MILD PAIN / TEMP Last administered on 09/26/16 06:32; Start 09/26/16 at 06:30 Furosemide (Lasix) 20 mg 1X ONCE IVP Last administered on 09/26/16 08:02; Start 09/26/16 at 07:30; Stop 09/26/16 at 07:31; Status DC Active Scripts Active Reported Proair Hfa Inhaler (Albuterol Sulfate) 8.5 Gm Hfa.aer.ad 2 Puff INH PRN DAILY PRN Pantoprazole Sodium 40 Mg Tablet. 1 Tab PO DAILY Coreg (Carvedilol) 12.5 Mg Tablet 1 Tab PO BID Aspir 81 (Aspirin) 81 Mg Tablet. 81 Mg PO Lasix (Furosemide) 20 Mg Tablet 40 Mg PO DAILY Vitals/I & O Vital Sign - Last 24 Hours 09/25/16 09/25/16 09/25/16 09/25/16 19:00 20:00 20:00 20:00 Temp 98.0 98.0 Pulse 72 58 Resp 20 18 B/P 114/77 120/75 Pulse Ox 92 96 O2 Delivery High Flow Nasal Cannula BiPAP/CPAP Bi-pap O2 Flow Rate 10.0 10.0 09/25/16 09/25/16 09/25/16 09/25/16 20:26 21:00 22:00 22:44 Pulse 60 56 Resp 18 18 B/P 111/70 114/73 Pulse Ox 97 96 96 99 O2 Delivery BiPAP/CPAP BiPAP/CPAP BiPAP/CPAP BiPAP/CPAP 09/25/16 09/26/16 09/26/16 09/26/16 23:00 00:00 00:00 01:00 Temp 98.0 98.0 Pulse 58 54 51 Resp 18 18 18 B/P 109/71 122/70 110/69 Pulse Ox 96 92 96 O2 Delivery BiPAP/CPAP Bi-pap BiPAP/CPAP BiPAP/CPAP 09/26/16 09/26/16 09/26/16 09/26/16 02:00 03:00 04:00 04:00 Pulse 51 51 66 Resp 20 20 20 B/P 116/72 116/72 127/72 Pulse Ox 96 96 96 O2 Delivery High Flow Nasal Cannula High Flow Nasal Cannula Bi-pap High Flow Nasal Cannula O2 Flow Rate 10.0 10.0 10.0 09/26/16 09/26/16 09/26/16 09/26/16 05:00 05:44 06:00 07:00 Temp 98.2 95.8 98.2 95.8 Pulse 66 71 60 Resp 18 20 B/P 116/74 111/79 113/72 Pulse Ox 96 95 96 96 O2 Delivery BiPAP/CPAP BiPAP/CPAP High Flow Nasal Cannula High Flow Nasal Cannula O2 Flow Rate 10.0 10.0 09/26/16 09/26/16 09/26/16 09/26/16 08:00 08:00 08:00 08:34 Pulse 60 72 B/P 104/62 104/65 Pulse Ox 98 98 O2 Delivery High Flow Nasal Cannula Bi-pap High Flow Nasal Cannula O2 Flow Rate 10.0 10.0 09/26/16 09/26/16 09/26/16 09/26/16 09:00 10:00 11:00 12:00 Pulse 60 74 58 B/P 113/65 112/70 118/71 Pulse Ox 92 94 96 O2 Delivery High Flow Nasal Cannula High Flow Nasal Cannula High Flow Nasal Cannula Bi-pap O2 Flow Rate 8.0 8.0 7.0 09/26/16 09/26/16 09/26/16 09/26/16 12:23 13:03 14:09 15:00 Temp 98.6 98.6 Pulse 72 66 81 B/P 112/64 106/60 110/78 Pulse Ox 85 92 93 O2 Delivery High Flow Nasal Cannula High Flow Nasal Cannula High Flow Nasal Cannula High Flow Nasal Cannula O2 Flow Rate 6.0 7.0 8.0 8.0 09/26/16 09/26/16 09/26/16 09/26/16 16:00 16:00 16:01 17:00 Temp 98.8 98.8 Pulse 61 B/P 119/67 102/66 Pulse Ox 90 O2 Delivery High Flow Nasal Cannula Bi-pap High Flow Nasal Cannula O2 Flow Rate 8.0 6.0 Intake and Output 09/25/16 09/25/16 09/26/16 15:00 23:00 07:00 Intake Total 1292 ml 1608 ml Output Total 600 ml Balance 692 ml 1608 ml SHAWNIREDCRISTHIAN CAMPOS MD Sep 26, 2016 18:40
[2016-09-26] MEDS ORDERED: POLYETHYLENE GLYCOL 3350 17 GM PACKET. PO PRN (19:30)
[2016-09-27] VITALS (14 sets, daily range): BP systolic 102–139; BP diastolic 60–80
[2016-09-27] MEDS: ALPRAZOLAM 0.5 MG TABLET PO PRN (00:03)
[2016-09-27 05:37] LABS: BASO % 0 % (0-3); EOS % 0 % (0-3); HEMATOCRIT 25.1 % (36.0-47.0); HEMOGLOBIN 7.8 g/dL (12.0-15.5); LYMPH # 1.4 x10^3/uL (1.0-4.8); LYMPH % 17 % (24-48); MEAN CORPUSCULAR HEMOGLOBIN 23 pg (25-35); MEAN CORPUSCULAR HGB CONC 31 g/dL (31-37); MEAN CORPUSCULAR VOLUME 73 fL (79-100); MONO % 11 % (0-9); NEUT % 72 % (31-73); PLATELET COUNT 187 x10^3/uL (140-400); RED BLOOD COUNT 3.45 x10^6/uL (3.50-5.40); WHITE BLOOD COUNT 8.3 x10^3/uL (4.0-11.0)
[2016-09-27 05:53] LABS: CALCIUM 8.5 mg/dL (8.5-10.1); GFR 69.4; POTASSIUM 3.6 mmol/L (3.5-5.1)
[2016-09-27] MEDS: LEVOFLOXACIN 750 MG TABLET. PO SCH ×2 (06:03→08:57)
--- NOTE | 2016-09-27 07:19 | PDOC ---
PULMONARY PROGRESS NOTES Subjective on 02 8 lpm, didnt use bipap last night, no pain, has sob, cough, better. Vitals Vital Signs Date Time Temp Pulse Resp B/P Pulse Ox O2 Delivery O2 Flow Rate FiO2 09/27/16 06:00 56 20 102/74 97 High Flow Nasal Cannula 8.0 09/27/16 03:00 97.7 97.7 Comments ros, as mentioned above, other sys otherwise neg General: Alert, Oriented X4, No acute distress HEENT: Other (nc, at perrl, throat, nose clear) Lungs: Crackles, Other (Diminished Breath Sounds) Cardiovascular: S1, S2 Abdomen: Soft, Non-tender, Other (no mass) Neuro Exam: Alert Extremities: No Edema Skin: Warm Labs Laboratory Tests Test 09/25/16 08:00 09/26/16 06:03 09/27/16 05:00 O2 Saturation 96% (92-99) Arterial Blood pH 7.34 (7.35-7.45) Arterial Blood pCO2 at Patient Temp 44mmHg (35-46) Arterial Blood pO2 at Patient Temp 89mmHg (75-108) Arterial Blood HCO3 23mmol/L (21-28) Arterial Blood Base Excess -3mmol/L (-3-3) FiO2 50 White Blood Count 9.5x10^3/uL (4.0-11.0) 8.3x10^3/uL (4.0-11.0) Red Blood Count 3.31x10^6/uL (3.50-5.40) 3.45x10^6/uL (3.50-5.40) Hemoglobin 7.5g/dL (12.0-15.5) 7.8g/dL (12.0-15.5) Hematocrit 24.8% (36.0-47.0) 25.1% (36.0-47.0) Mean Corpuscular Volume 75fL (79-100) 73fL (79-100) Mean Corpuscular Hemoglobin 23pg (25-35) 23pg (25-35) Mean Corpuscular Hemoglobin Concent 30g/dL (31-37) 31g/dL (31-37) Red Cell Distribution Width 20.3% (11.5-14.5) 20.0% (11.5-14.5) Platelet Count 168x10^3/uL (140-400) 187x10^3/uL (140-400) Neutrophils (%) (Auto) 82% (31-73) 72% (31-73) Lymphocytes (%) (Auto) 12% (24-48) 17% (24-48) Monocytes (%) (Auto) 7% (0-9) 11% (0-9) Eosinophils (%) (Auto) 0% (0-3) 0% (0-3) Basophils (%) (Auto) 0% (0-3) 0% (0-3) Neutrophils # (Auto) 7.8x10^3uL (1.8-7.7) 5.9x10^3uL (1.8-7.7) Lymphocytes # (Auto) 1.1x10^3/uL (1.0-4.8) 1.4x10^3/uL (1.0-4.8) Monocytes # (Auto) 0.7x10^3/uL (0.0-1.1) 0.9x10^3/uL (0.0-1.1) Eosinophils # (Auto) 0.0x10^3/uL (0.0-0.7) 0.0x10^3/uL (0.0-0.7) Basophils # (Auto) 0.0x10^3/uL (0.0-0.2) 0.0x10^3/uL (0.0-0.2) Sodium Level 143mmol/L (136-145) 141mmol/L (136-145) Potassium Level 4.0mmol/L (3.5-5.1) 3.6mmol/L (3.5-5.1) Chloride Level 110mmol/L (98-107) 107mmol/L (98-107) Carbon Dioxide Level 24mmol/L (21-32) 25mmol/L (21-32) Anion Gap 9 (6-14) 9 (6-14) Blood Urea Nitrogen 14mg/dL (7-20) 12mg/dL (7-20) Creatinine 1.0mg/dL (0.6-1.0) 1.0mg/dL (0.6-1.0) Estimated GFR (Cockcroft-Gault) 69.4 69.4 Glucose Level 86mg/dL (70-99) 81mg/dL (70-99) Calcium Level 8.4mg/dL (8.5-10.1) 8.5mg/dL (8.5-10.1) Laboratory Tests Test 09/27/16 05:00 White Blood Count 8.3x10^3/uL (4.0-11.0) Red Blood Count 3.45x10^6/uL (3.50-5.40) Hemoglobin 7.8g/dL (12.0-15.5) Hematocrit 25.1% (36.0-47.0) Mean Corpuscular Volume 73fL (79-100) Mean Corpuscular Hemoglobin 23pg (25-35) Mean Corpuscular Hemoglobin Concent 31g/dL (31-37) Red Cell Distribution Width 20.0% (11.5-14.5) Platelet Count 187x10^3/uL (140-400) Neutrophils (%) (Auto) 72% (31-73) Lymphocytes (%) (Auto) 17% (24-48) Monocytes (%) (Auto) 11% (0-9) Eosinophils (%) (Auto) 0% (0-3) Basophils (%) (Auto) 0% (0-3) Neutrophils # (Auto) 5.9x10^3uL (1.8-7.7) Lymphocytes # (Auto) 1.4x10^3/uL (1.0-4.8) Monocytes # (Auto) 0.9x10^3/uL (0.0-1.1) Eosinophils # (Auto) 0.0x10^3/uL (0.0-0.7) Basophils # (Auto) 0.0x10^3/uL (0.0-0.2) Sodium Level 141mmol/L (136-145) Potassium Level 3.6mmol/L (3.5-5.1) Chloride Level 107mmol/L (98-107) Carbon Dioxide Level 25mmol/L (21-32) Anion Gap 9 (6-14) Blood Urea Nitrogen 12mg/dL (7-20) Creatinine 1.0mg/dL (0.6-1.0) Estimated GFR (Cockcroft-Gault) 69.4 Glucose Level 81mg/dL (70-99) Calcium Level 8.5mg/dL (8.5-10.1) Medications Active Scripts Medications Dose Route/Sig Days Date Category Proair Hfa Inhaler (Albuterol Sulfate) 8.5 Gm Hfa.aer.ad 2 Puff INH PRN DAILY PRN 09/23/16 Reported Pantoprazole Sodium 40 Mg Tablet. 1 Tab PO DAILY 09/23/16 Reported Coreg (Carvedilol) 12.5 Mg Tablet 1 Tab PO BID 09/23/16 Reported Aspir 81 (Aspirin) 81 Mg Tablet.dr 81 Mg PO 06/04/14 Reported Lasix (Furosemide) 20 Mg Tablet 40 Mg PO DAILY 06/04/[address] of chest reviewed, IMPRESSION: New pleural thickening or focal consolidative infiltrate of the posterior medial aspects of both lower lobes. This could represent infection or neoplasia or inflammatory disease such as focal consolidative interstitial pulmonary fibrosis (although there are no findings of honeycombing or interstitial pulmonary fibrosis elsewhere). There is groundglass lung infiltrate present within the inferior segment of the lingula which could represent atelectasis or alveolitis. Stable mediastinal lymphadenopathy. However, there is a new enlarged right axillary lymph node. This lymph node may represent a new manifestation of the mediastinal reactive lymphadenopathy is there is a history of sarcoidosis or granulomatous disease etc. Certainly lymphoma is a possibility if there is a clinical history of such. Another consideration would include abnormally enlarged lymph node related to breast malignancy. Therefore, recommend bilateral mammography and right axillary sonography. Chronic cardiomegaly with calcified atheromatous disease of the coronary arteries. Impression . 1. Acute on chronic hypoxic respiratory failure in a patient normally is on 4 liters of oxygen for primary pulmonary hypertension for which she is followed at . Now comes in with fever, progressive dyspnea and bilateral interstitial infiltrates involving the lower lobes. Most likely this is related to viral pneumonitis. Influenza screen is negative. 2. Mild hypotension may be related to dehydration. improved 3. History of Primary pulmonary hypertension being followed at . She takes Letairis and Adempas. I do not have records available from regarding the workup for primary pulmonary hypertension and the etiology. We will continue with her home pulmonary vasodilators, hold if blood pressure remains low. 4. Minimal history of tobacco use. 5. abnl cxr and ct of chest. 6. ? acute diastolic chf Plan . 1. Continue present Duo Nebs. 2. keep I<O, monitor k, cr. 3. Continue empiric antibiotic. 4. Continue steroids. 5. BiPAP prn during day, cont at night, change setting to 12/8, rate 8. 6. Continue pulmonary vasodilators. 7. Monitor blood pressure closely. 8. DVT prophylaxis with Lovenox. 9. Obtain records from [facility]. 10. Ct chest w/o contrast reviewed, ? mammogram, defer to primary, would need fu ct in 4-6 wks. echo with PA 81 10. elevate hob Discussed with RN and RT, pt. VESTA ALEX MD Sep 27, 2016 07:19
[2016-09-27] MEDS: BUDESONIDE 0.5 MG/2 ML NEBU NEB SCH ×2 (07:41→20:05)
[2016-09-27] MEDS: IPRATRPIUM/ALBUTEROL 0.5/2.5MG 3 ML NEBU. NEB SCH ×4 (07:41→20:05)
[2016-09-27] MEDS: ENOXAPARIN 40 MG/0.4 ML DISP.SYRIN. SQ SCH (07:44)
[2016-09-27] MEDS: CARVEDILOL 12.5 MG TABLET PO SCH ×2 (07:45→16:42)
[2016-09-27] MEDS: PANTOPRAZOLE 40 MG TABLET. PO SCH (07:45)
[2016-09-27] MEDS: ADEMPAS 2 MG PO SCH ×2 (08:57→21:12)
[2016-09-27] MEDS: LETAIRIS 10 MG PO SCH (08:57)
[2016-09-27] MEDS: PREDNISONE 20 MG TABLET PO SCH (08:57)
[2016-09-27] MEDS: ASPIRIN ENTERIC COATED 81 MG TABLET.DR. PO SCH (09:00)
--- NOTE | 2016-09-27 10:26 | PDOC ---
PROGRESS NOTES Chief Complaint Chief Complaint A/P 1. Acute Respiratory Distress on Chronic Hypoxic Failure 2. COPD 3. Pulmonary HTN 4. HTN 5. Hyperlipidemia 6. CHF 7. CKD 3 8. Anemia of Chronic Disease 9. elevated troponin due to hypoxia Plan Steroid taper Levaquin off BIPAP supplemental oxygen 6l at rest, anticipated DC today If cleared by cardiology and pulmonology PRN nebulizations ambulatory biox Follow cardiology recommendations. dc ivf, out pt ku follow up in 48hr of DC Out pt mammogram monitor anemia Echo results reviewed, DVT prophylaxis. History of Present Illness History of Present Illness Seen icu doing better supplemental oxygen Vitals Vitals Vital Signs Date Time Temp Pulse Resp B/P Pulse Ox O2 Delivery O2 Flow Rate FiO2 09/27/16 07:45 58 123/72 09/27/16 07:43 76 High Flow Nasal Cannula 7.0 09/27/16 06:00 20 09/27/16 03:00 97.7 97.7 Physical Exam General: Alert, Oriented X3, Cooperative, mild distress Heart: Regular rate, Normal S1, Normal S2, Other Lungs: Clear, Crackles, Other Abdomen: Soft, No tenderness Extremities: Normal pulses, Other Skin: No breakdown, No significant lesion Labs LABS Laboratory Tests Test 09/27/16 05:00 White Blood Count 8.3x10^3/uL (4.0-11.0) Red Blood Count 3.45x10^6/uL (3.50-5.40) Hemoglobin 7.8g/dL (12.0-15.5) Hematocrit 25.1% (36.0-47.0) Mean Corpuscular Volume 73fL (79-100) Mean Corpuscular Hemoglobin 23pg (25-35) Mean Corpuscular Hemoglobin Concent 31g/dL (31-37) Red Cell Distribution Width 20.0% (11.5-14.5) Platelet Count 187x10^3/uL (140-400) Neutrophils (%) (Auto) 72% (31-73) Lymphocytes (%) (Auto) 17% (24-48) Monocytes (%) (Auto) 11% (0-9) Eosinophils (%) (Auto) 0% (0-3) Basophils (%) (Auto) 0% (0-3) Neutrophils # (Auto) 5.9x10^3uL (1.8-7.7) Lymphocytes # (Auto) 1.4x10^3/uL (1.0-4.8) Monocytes # (Auto) 0.9x10^3/uL (0.0-1.1) Eosinophils # (Auto) 0.0x10^3/uL (0.0-0.7) Basophils # (Auto) 0.0x10^3/uL (0.0-0.2) Sodium Level 141mmol/L (136-145) Potassium Level 3.6mmol/L (3.5-5.1) Chloride Level 107mmol/L (98-107) Carbon Dioxide Level 25mmol/L (21-32) Anion Gap 9 (6-14) Blood Urea Nitrogen 12mg/dL (7-20) Creatinine 1.0mg/dL (0.6-1.0) Estimated GFR (Cockcroft-Gault) 69.4 Glucose Level 81mg/dL (70-99) Calcium Level 8.5mg/dL (8.5-10.1) Assessment and Plan Assessmemt and Plan Problems Medical Problems: (1) COPD exacerbation Status: Acute (2) Pneumonia Status: Acute Problems: Comment Review of Relevant I have reviewed the following items marnie (where applicable) has been applied. Labs Laboratory Tests Test 09/26/16 06:03 09/27/16 05:00 White Blood Count 9.5x10^3/uL (4.0-11.0) 8.3x10^3/uL (4.0-11.0) Red Blood Count 3.31x10^6/uL (3.50-5.40) 3.45x10^6/uL (3.50-5.40) Hemoglobin 7.5g/dL (12.0-15.5) 7.8g/dL (12.0-15.5) Hematocrit 24.8% (36.0-47.0) 25.1% (36.0-47.0) Mean Corpuscular Volume 75fL (79-100) 73fL (79-100) Mean Corpuscular Hemoglobin 23pg (25-35) 23pg (25-35) Mean Corpuscular Hemoglobin Concent 30g/dL (31-37) 31g/dL (31-37) Red Cell Distribution Width 20.3% (11.5-14.5) 20.0% (11.5-14.5) Platelet Count 168x10^3/uL (140-400) 187x10^3/uL (140-400) Neutrophils (%) (Auto) 82% (31-73) 72% (31-73) Lymphocytes (%) (Auto) 12% (24-48) 17% (24-48) Monocytes (%) (Auto) 7% (0-9) 11% (0-9) Eosinophils (%) (Auto) 0% (0-3) 0% (0-3) Basophils (%) (Auto) 0% (0-3) 0% (0-3) Neutrophils # (Auto) 7.8x10^3uL (1.8-7.7) 5.9x10^3uL (1.8-7.7) Lymphocytes # (Auto) 1.1x10^3/uL (1.0-4.8) 1.4x10^3/uL (1.0-4.8) Monocytes # (Auto) 0.7x10^3/uL (0.0-1.1) 0.9x10^3/uL (0.0-1.1) Eosinophils # (Auto) 0.0x10^3/uL (0.0-0.7) 0.0x10^3/uL (0.0-0.7) Basophils # (Auto) 0.0x10^3/uL (0.0-0.2) 0.0x10^3/uL (0.0-0.2) Sodium Level 143mmol/L (136-145) 141mmol/L (136-145) Potassium Level 4.0mmol/L (3.5-5.1) 3.6mmol/L (3.5-5.1) Chloride Level 110mmol/L (98-107) 107mmol/L (98-107) Carbon Dioxide Level 24mmol/L (21-32) 25mmol/L (21-32) Anion Gap 9 (6-14) 9 (6-14) Blood Urea Nitrogen 14mg/dL (7-20) 12mg/dL (7-20) Creatinine 1.0mg/dL (0.6-1.0) 1.0mg/dL (0.6-1.0) Estimated GFR (Cockcroft-Gault) 69.4 69.4 Glucose Level 86mg/dL (70-99) 81mg/dL (70-99) Calcium Level 8.4mg/dL (8.5-10.1) 8.5mg/dL (8.5-10.1) Laboratory Tests Test 09/27/16 05:00 White Blood Count 8.3x10^3/uL (4.0-11.0) Red Blood Count 3.45x10^6/uL (3.50-5.40) Hemoglobin 7.8g/dL (12.0-15.5) Hematocrit 25.1% (36.0-47.0) Mean Corpuscular Volume 73fL (79-100) Mean Corpuscular Hemoglobin 23pg (25-35) Mean Corpuscular Hemoglobin Concent 31g/dL (31-37) Red Cell Distribution Width 20.0% (11.5-14.5) Platelet Count 187x10^3/uL (140-400) Neutrophils (%) (Auto) 72% (31-73) Lymphocytes (%) (Auto) 17% (24-48) Monocytes (%) (Auto) 11% (0-9) Eosinophils (%) (Auto) 0% (0-3) Basophils (%) (Auto) 0% (0-3) Neutrophils # (Auto) 5.9x10^3uL (1.8-7.7) Lymphocytes # (Auto) 1.4x10^3/uL (1.0-4.8) Monocytes # (Auto) 0.9x10^3/uL (0.0-1.1) Eosinophils # (Auto) 0.0x10^3/uL (0.0-0.7) Basophils # (Auto) 0.0x10^3/uL (0.0-0.2) Sodium Level 141mmol/L (136-145) Potassium Level 3.6mmol/L (3.5-5.1) Chloride Level 107mmol/L (98-107) Carbon Dioxide Level 25mmol/L (21-32) Anion Gap 9 (6-14) Blood Urea Nitrogen 12mg/dL (7-20) Creatinine 1.0mg/dL (0.6-1.0) Estimated GFR (Cockcroft-Gault) 69.4 Glucose Level 81mg/dL (70-99) Calcium Level 8.5mg/dL (8.5-10.1) Microbiology 09/23/16 Blood Culture - Preliminary, Resulted NO GROWTH AFTER 3 DAYS Medications Current Medications Albuterol Sulfate (Ventolin Neb Soln) 2.5 mg STK-MED ONCE .ROUTE ; Start at 19:48; Stop 09/23/16 at 19:49; Status DC Methylprednisolone Sodium Succinate (Solu-Medrol 125mg Vial) 125 mg 1X ONCE IV Last administered on 09/23/16 19:59; Start 09/23/16 at 19:45; Stop 09/23/16 at 19:50; Status DC Albuterol Sulfate (Ventolin Neb Soln) 10 mg 1X ONCE CONT NEB Last administered on 09/23/16 20:00; Start 09/23/16 at 19:45; Stop 09/23/16 at 19:50; Status DC Acetaminophen 1000 mg 1,000 mg 1X ONCE PO Last administered on 09/23/16 20:25 ; Start 09/23/16 at 20:30; Stop 09/23/16 at 20:31; Status DC Levofloxacin/ Dextrose (LEVAQUIN 750mg PREMIX) 150 ml @ 100 mls/hr 1X ONCE IV Last administered on 09/23/16 21:16; Start 09/23/16 at 21:00; Stop 09/23/16 at 22:29; Status DC Albuterol/ Ipratropium (Duoneb) 3 ml RTQID NEB ; Start 09/24/16 at 08:00; Stop at 08:00; Status DC Enoxaparin Sodium (Lovenox Per Pharmacy Prophylaxis Dosing) 1 each PRN DAILY PRN MC SEE COMMENTS; Start 09/23/16 at 22:45 Albuterol/ Ipratropium (Duoneb) 3 ml Q4HRS W/A NEB Last administered on 07:41; Start 09/24/16 at 10:00 Albuterol Sulfate (Ventolin Neb Soln) 2.5 mg PRN QID PRN NEB dyspnea Last administered on 09/25/16 22:45; Start 09/23/16 at 22:45 Budesonide (Pulmicort) 0.5 mg RTBID NEB Last administered on 09/27/16 07:41; Start 09/24/16 at 08:00 Prednisone (Prednisone) 60 mg DAILY08 PO Last administered on 09/27/16 08:57; Start 09/24/16 at 08:00 Levofloxacin (Levaquin) 750 mg DAILY06 PO Last administered on 09/27/16 08:57 ; Start 09/24/16 at 06:00 Aspirin (Ecotrin) 324 mg DAILY PO Last administered on 09/27/16 09:00; Start 09/23/16 at 22:45 Carvedilol (Coreg) 12.5 mg BIDWMEALS PO ; Start 09/24/16 at 08:00 Furosemide (Lasix) 40 mg DAILY PO ; Start 09/24/16 at 09:00; Stop 09/24/16 at 09: 52; Status DC Pantoprazole Sodium (Protonix) 40 mg DAILYAC PO Last administered on 09/27/16 07:45; Start 09/24/16 at 07:30 Potassium Chloride (Klor-Con) 20 meq 1X ONCE PO Last administered on 09/24/16 00:22; Start 09/23/16 at 23:00; Stop 09/23/16 at 23:01; Status DC Enoxaparin Sodium (Lovenox 40mg Syringe) 40 mg DAILY SQ Last administered on 07:44; Start 09/24/16 at 23:00 Non-Formulary Medication 1 ea TID PO Last administered on 09/25/16 11:51; Start 09/24/16 at 21:00; Stop 09/25/16 at 19:21; Status DC Non-Formulary Medication 1 ea DAILY PO Last administered on 09/27/16 08:57; Start 09/24/16 at 09:00 Sildenafil Citrate 20 mg 20 mg TID PO Last administered on 09/24/16 00:22; Start 09/23/16 at 23:30; Stop 09/24/16 at 14:00; Status DC Sodium Chloride (Iv Sodium Chloride 0.9% 1000ml Bag) 1,000 ml @ 592.5 mls/ hr Q1H42M IV Last administered on 09/24/16 04:34; Start 09/24/16 at 00:30; Stop 09/24/16 at 04:29; Status DC Info (Do NOT chart on this placeholder) 1 each 1X ONCE MC ; Start 09/24/16 at 01 :30; Stop 09/24/16 at 01:31; Status UNV Pneumococcal Polyvalent Vaccine (Do NOT chart on this placeholder) 1 each 1X ONCE MC ; Start 09/24/16 at 01:30; Stop 09/24/16 at 01:31; Status UNV Influenza Virus Vaccine Quadrival (Fluarix Quad [id number] Syringe) 0.5 ml ONCE ONCE VAX IM ; Start 09/24/16 at 09:00; Stop 09/24/16 at 09:01; Status DC Pneumococcal Polyvalent Vaccine 0.5 ml 0.5 ml ONCE ONCE VAX IM ; Start 09/24/16 at 09:00; Stop 09/24/16 at 09:01; Status DC Sodium Chloride 500 ml @ 500 mls/hr 1X ONCE IV Last administered on 09/24/16 07:45; Start 09/24/16 at 07:30; Stop 09/24/16 at 08:29; Status DC Sodium Chloride 1,000 ml @ 100 mls/hr Q10H IV Last administered on 09/26/16 00:30; Start 09/24/16 at 08:30; Stop 09/26/16 at 12:16; Status DC Sodium Chloride (Iv Sodium Chloride 0.9% 500ml Bag) 500 ml @ 500 mls/hr 1X ONCE IV ; Start 09/24/16 at 10:00; Stop 09/24/16 at 10:59; Status DC Alprazolam (Xanax) 0.5 mg PRN Q4HRS PRN PO ANXIETY / AGITATION Last administered on 09/27/16 00:03; Start 09/25/16 at 00:30 Polyethylene Glycol (miraLAX PACKET) 34 gm 1X ONCE PO Last administered on 11:51; Start 09/25/16 at 12:00; Stop 09/25/16 at 12:01; Status DC Non-Formulary Medication 1 ea BID PO ; Start 09/26/16 at 09:00; Status UNV Non-Formulary Medication 1 ea BID PO ; Start 09/26/16 at 09:00; Stop 09/26/16 at 09:00; Status DC Non-Formulary Medication 1 ea BID PO Last administered on 09/27/16 08:57; Start 09/25/16 at 21:00 Acetaminophen (Tylenol) 650 mg PRN Q6HRS PRN PO MILD PAIN / TEMP Last administered on 09/26/16 06:32; Start 09/26/16 at 06:30 Furosemide (Lasix) 20 mg 1X ONCE IVP Last administered on 09/26/16 08:02; Start 09/26/16 at 07:30; Stop 09/26/16 at 07:31; Status DC Polyethylene Glycol (miraLAX PACKET) 17 gm PRN DAILY PRN PO CONSTIPATION Last administered on 09/27/16 09:04; Start 09/26/16 at 19:30 Active Scripts Active Reported Proair Hfa Inhaler (Albuterol Sulfate) 8.5 Gm Hfa.aer.ad 2 Puff INH PRN DAILY PRN Pantoprazole Sodium 40 Mg Tablet. 1 Tab PO DAILY Coreg (Carvedilol) 12.5 Mg Tablet 1 Tab PO BID Aspir 81 (Aspirin) 81 Mg Tablet. 81 Mg PO Lasix (Furosemide) 20 Mg Tablet 40 Mg PO DAILY Vitals/I & O Vital Sign - Last 24 Hours 09/26/16 09/26/16 09/26/16 09/26/16 11:00 12:00 12:23 13:03 Temp 98.6 98.6 Pulse 58 72 B/P 118/71 112/64 Pulse Ox 96 85 O2 Delivery High Flow Nasal Cannula Bi-pap High Flow Nasal Cannula High Flow Nasal Cannula O2 Flow Rate 7.0 6.0 7.0 09/26/16 09/26/16 09/26/16 09/26/16 14:09 15:00 16:00 16:00 Temp 98.8 98.8 Pulse 66 81 B/P 106/60 110/78 119/67 Pulse Ox 92 93 90 O2 Delivery High Flow Nasal Cannula High Flow Nasal Cannula High Flow Nasal Cannula Bi-pap O2 Flow Rate 8.0 8.0 8.0 09/26/16 09/26/16 09/26/16 09/26/16 16:01 17:00 17:00 18:00 Pulse 89 61 72 Resp 30 B/P 124/64 102/66 108/66 Pulse Ox 95 O2 Delivery High Flow Nasal Cannula High Flow Nasal Cannula High Flow Nasal Cannula O2 Flow Rate 6.0 8.0 8.0 09/26/16 09/26/16 09/26/16 09/26/16 19:00 19:55 20:00 20:00 Temp 98.2 98.2 Pulse 65 72 Resp 20 24 B/P 125/61 125/69 Pulse Ox 96 O2 Delivery High Flow Nasal Cannula Nasal Cannula High Flow Nasal Cannula O2 Flow Rate 8.0 8.0 8.0 09/26/16 09/26/16 09/26/16 09/26/16 20:25 20:26 21:00 21:00 Pulse 72 Resp 20 B/P 113/67 Pulse Ox 93 93 97 O2 Delivery High Flow Nasal Cannula High Flow Nasal Cannula High Flow Nasal Cannula O2 Flow Rate 7.0 7.0 8.0 09/26/16 09/26/16 09/26/16 09/26/16 22:00 22:00 23:00 23:00 Pulse 72 62 Resp 22 20 B/P 121/70 131/68 Pulse Ox 95 95 O2 Delivery High Flow Nasal Cannula High Flow Nasal Cannula O2 Flow Rate 8.0 8.0 09/26/16 09/27/16 09/27/16 09/27/16 23:58 00:00 00:00 00:25 Temp 98.4 98.4 Pulse 56 Resp 14 B/P 134/69 Pulse Ox 93 99 O2 Delivery High Flow Nasal Cannula High Flow Nasal Cannula Nasal Cannula O2 Flow Rate 7.0 8.0 8.0 09/27/16 09/27/16 09/27/16 09/27/16 01:00 01:00 02:00 02:00 Pulse 68 62 Resp 21 22 B/P 114/72 108/64 Pulse Ox 96 98 O2 Delivery High Flow Nasal Cannula High Flow Nasal Cannula O2 Flow Rate 8.0 8.0 09/27/16 09/27/16 09/27/16 09/27/16 03:00 03:00 03:55 04:00 Temp 97.7 97.7 Pulse 62 Resp 21 B/P 109/66 Pulse Ox 97 95 O2 Delivery High Flow Nasal Cannula Nasal Cannula O2 Flow Rate 8.0 8.0 09/27/16 09/27/16 09/27/16/12/17 04:00 05:00 06:00 07:43 Pulse 60 64 56 Resp 23 18 20 B/P 133/74 116/77 102/74 Pulse Ox 95 97 76 O2 Delivery High Flow Nasal Cannula High Flow Nasal Cannula High Flow Nasal Cannula High Flow Nasal Cannula O2 Flow Rate 8.0 8.0 8.0 7.0 09/27/16 07:45 Pulse 58 B/P 123/72 Intake and Output 09/26/16 09/26/16 09/27/16 15:00 23:00 07:00 Intake Total 1160 ml 960 ml 520 ml Output Total 1950 ml 775 ml 1350 ml Balance -790 ml 185 ml -830 ml CRISTHIAN MORATAYA MD Sep 27, 2016 10:26
[2016-09-27] MEDS ORDERED: BISACODYL 10 MG SUPP.RECT PR PRN (13:15)
[2016-09-27] MEDS ORDERED: BISACODYL 5 MG TABLET.DR. PO PRN (13:15)
[2016-09-28] VITALS: BP 137/77
[2016-09-28] MEDS: ALPRAZOLAM 0.5 MG TABLET PO PRN (00:26)
[2016-09-28 04:00] VITALS: BP 113/75
[2016-09-28 06:24] LABS: CALCIUM 8.7 mg/dL (8.5-10.1); CREATININE 1.1 mg/dL (0.6-1.0); GFR 62.2; POTASSIUM 3.8 mmol/L (3.5-5.1)
[2016-09-28 07:16] LABS: BASO % 0 % (0-3); EOS % 0 % (0-3); HEMATOCRIT 25.9 % (36.0-47.0); HEMOGLOBIN 7.9 g/dL (12.0-15.5); LYMPH # 1.8 x10^3/uL (1.0-4.8); LYMPH % 24 % (24-48); MEAN CORPUSCULAR HEMOGLOBIN 22 pg (25-35); MEAN CORPUSCULAR HGB CONC 31 g/dL (31-37); MEAN CORPUSCULAR VOLUME 74 fL (79-100); MONO % 12 % (0-9); NEUT % 64 % (31-73); PLATELET COUNT 197 x10^3/uL (140-400); RED BLOOD COUNT 3.52 x10^6/uL (3.50-5.40); RED CELL DISTRIBUTION WIDTH 19.5 % (11.5-14.5); WHITE BLOOD COUNT 7.5 x10^3/uL (4.0-11.0)
[2016-09-28] MEDS: PANTOPRAZOLE 40 MG TABLET. PO SCH (07:30)
[2016-09-28 08:00] VITALS: BP 116/70
[2016-09-28] MEDS: PREDNISONE 20 MG TABLET PO SCH (08:00)
[2016-09-28] MEDS: ASPIRIN ENTERIC COATED 81 MG TABLET.DR. PO SCH (08:39)
[2016-09-28] MEDS: LETAIRIS 10 MG PO SCH ×2 (08:41→10:09)
[2016-09-28] MEDS: ENOXAPARIN 40 MG/0.4 ML DISP.SYRIN. SQ SCH (09:00)
[2016-09-28] MEDS: ADEMPAS 2 MG PO SCH (09:00)
[2016-09-28] MEDS: IPRATRPIUM/ALBUTEROL 0.5/2.5MG 3 ML NEBU. NEB SCH ×2 (09:16→12:36)
[2016-09-28] MEDS: BUDESONIDE 0.5 MG/2 ML NEBU NEB SCH (09:17)
[2016-09-28 10:00] VITALS: BP 107/64
--- NOTE | 2016-09-28 10:57 | PDOC ---
CARDIO Progress Notes Date and Time Date of Service 09/28/2016 Time of Evaluation 1040 Subjective Subjective: No Chest Pain, No Palpitations, No Dizziness, Other (SOA compensated with current O2 supplement) Vitals Vitals Vital Signs Date Time Temp Pulse Resp B/P Pulse Ox O2 Delivery O2 Flow Rate FiO2 09/28/16 09:10 96 High Flow Nasal Cannula 7.0 09/28/16 04:00 97.6 69 20 113/75 97.6 Weight Weight [ ] Input and Output Intake and Output Intake and Output 09/28/16 07:00 Intake Total 1490 ml Output Total 2250 ml Balance -760 ml Intake Oral 1490 ml Output Urine Total 2250 ml # Voids 1 # Bowel Movements 1 Laboratory Labs Laboratory Tests Test 09/28/16 05:42 White Blood Count 7.5x10^3/uL (4.0-11.0) Red Blood Count 3.52x10^6/uL (3.50-5.40) Hemoglobin 7.9g/dL (12.0-15.5) Hematocrit 25.9% (36.0-47.0) Mean Corpuscular Volume 74fL (79-100) Mean Corpuscular Hemoglobin 22pg (25-35) Mean Corpuscular Hemoglobin Concent 31g/dL (31-37) Red Cell Distribution Width 19.5% (11.5-14.5) Platelet Count 197x10^3/uL (140-400) Neutrophils (%) (Auto) 64% (31-73) Lymphocytes (%) (Auto) 24% (24-48) Monocytes (%) (Auto) 12% (0-9) Eosinophils (%) (Auto) 0% (0-3) Basophils (%) (Auto) 0% (0-3) Neutrophils # (Auto) 4.8x10^3uL (1.8-7.7) Lymphocytes # (Auto) 1.8x10^3/uL (1.0-4.8) Monocytes # (Auto) 0.9x10^3/uL (0.0-1.1) Eosinophils # (Auto) 0.0x10^3/uL (0.0-0.7) Basophils # (Auto) 0.0x10^3/uL (0.0-0.2) Sodium Level 140mmol/L (136-145) Potassium Level 3.8mmol/L (3.5-5.1) Chloride Level 104mmol/L (98-107) Carbon Dioxide Level 27mmol/L (21-32) Anion Gap 9 (6-14) Blood Urea Nitrogen 14mg/dL (7-20) Creatinine 1.1mg/dL (0.6-1.0) Estimated GFR (Cockcroft-Gault) 62.2 Glucose Level 88mg/dL (70-99) Calcium Level 8.7mg/dL (8.5-10.1) Microbiology Micro Microbiology 09/23/16 Blood Culture - Preliminary, Resulted NO GROWTH AFTER 4 DAYS Physical Exam HEENT: Neck Supple W Full Motion Chest: Symmetric LUNGS: Other (faint wheeze with diminished bases) Heart: S1S2, RRR (SR with occasional PVCs), murmurs (3/6 systolic murmur to LLS border) Abdomen: Soft N/T Extremities: No Edema, No Calf Tenderness Neurology: alert, oriented, follow commands Assessment Assessment 1. Primary pulmonary HTN 2. Elevated troponin: demand mediated r/t #1 exacerbation. Recent stress test per pt 06/2016 normal 3. LVH, EF preserved with normal wall motion via TTE Recommendation 1. Continue per pulmonary recommendation. 2. Sees PHTN clinic in [place] 3. Continue with coreg at lower dose. 4. Encourage daily home BP monitoring. 5. May DC to home per cardiac perspective ANGELINA MYERS APRN Sep 28, 2016 10:57
[2016-09-28] MEDS ORDERED: adempas PO (11:17)
[2016-09-28] MEDS ORDERED: AMBR10TA PO (11:17)
[2016-09-28 12:00] VITALS: BP 110/64
--- NOTE | 2016-09-28 12:08 | PDOC ---
PULMONARY PROGRESS NOTES Subjective pt ready to be d/c not more soa Vitals Vital Signs Date Time Temp Pulse Resp B/P Pulse Ox O2 Delivery O2 Flow Rate FiO2 09/28/16 09:10 96 High Flow Nasal Cannula 7.0 09/28/16 04:00 97.6 69 20 113/75 97.6 ROS: No Nausea, No Chest Pain, No Abdominal Pain, No Increase Cough General: Alert, No acute distress HEENT: Other Lungs: Crackles Cardiovascular: S1, S2 Abdomen: Soft, Non-tender, Other Neuro Exam: Alert Extremities: No Edema Skin: Warm Labs Laboratory Tests Test 09/27/16 05:00 09/28/16 05:42 White Blood Count 8.3x10^3/uL (4.0-11.0) 7.5x10^3/uL (4.0-11.0) Red Blood Count 3.45x10^6/uL (3.50-5.40) 3.52x10^6/uL (3.50-5.40) Hemoglobin 7.8g/dL (12.0-15.5) 7.9g/dL (12.0-15.5) Hematocrit 25.1% (36.0-47.0) 25.9% (36.0-47.0) Mean Corpuscular Volume 73fL (79-100) 74fL (79-100) Mean Corpuscular Hemoglobin 23pg (25-35) 22pg (25-35) Mean Corpuscular Hemoglobin Concent 31g/dL (31-37) 31g/dL (31-37) Red Cell Distribution Width 20.0% (11.5-14.5) 19.5% (11.5-14.5) Platelet Count 187x10^3/uL (140-400) 197x10^3/uL (140-400) Neutrophils (%) (Auto) 72% (31-73) 64% (31-73) Lymphocytes (%) (Auto) 17% (24-48) 24% (24-48) Monocytes (%) (Auto) 11% (0-9) 12% (0-9) Eosinophils (%) (Auto) 0% (0-3) 0% (0-3) Basophils (%) (Auto) 0% (0-3) 0% (0-3) Neutrophils # (Auto) 5.9x10^3uL (1.8-7.7) 4.8x10^3uL (1.8-7.7) Lymphocytes # (Auto) 1.4x10^3/uL (1.0-4.8) 1.8x10^3/uL (1.0-4.8) Monocytes # (Auto) 0.9x10^3/uL (0.0-1.1) 0.9x10^3/uL (0.0-1.1) Eosinophils # (Auto) 0.0x10^3/uL (0.0-0.7) 0.0x10^3/uL (0.0-0.7) Basophils # (Auto) 0.0x10^3/uL (0.0-0.2) 0.0x10^3/uL (0.0-0.2) Sodium Level 141mmol/L (136-145) 140mmol/L (136-145) Potassium Level 3.6mmol/L (3.5-5.1) 3.8mmol/L (3.5-5.1) Chloride Level 107mmol/L (98-107) 104mmol/L (98-107) Carbon Dioxide Level 25mmol/L (21-32) 27mmol/L (21-32) Anion Gap 9 (6-14) 9 (6-14) Blood Urea Nitrogen 12mg/dL (7-20) 14mg/dL (7-20) Creatinine 1.0mg/dL (0.6-1.0) 1.1mg/dL (0.6-1.0) Estimated GFR (Cockcroft-Gault) 69.4 62.2 Glucose Level 81mg/dL (70-99) 88mg/dL (70-99) Calcium Level 8.5mg/dL (8.5-10.1) 8.7mg/dL (8.5-10.1) Laboratory Tests Test 09/28/16 05:42 White Blood Count 7.5x10^3/uL (4.0-11.0) Red Blood Count 3.52x10^6/uL (3.50-5.40) Hemoglobin 7.9g/dL (12.0-15.5) Hematocrit 25.9% (36.0-47.0) Mean Corpuscular Volume 74fL (79-100) Mean Corpuscular Hemoglobin 22pg (25-35) Mean Corpuscular Hemoglobin Concent 31g/dL (31-37) Red Cell Distribution Width 19.5% (11.5-14.5) Platelet Count 197x10^3/uL (140-400) Neutrophils (%) (Auto) 64% (31-73) Lymphocytes (%) (Auto) 24% (24-48) Monocytes (%) (Auto) 12% (0-9) Eosinophils (%) (Auto) 0% (0-3) Basophils (%) (Auto) 0% (0-3) Neutrophils # (Auto) 4.8x10^3uL (1.8-7.7) Lymphocytes # (Auto) 1.8x10^3/uL (1.0-4.8) Monocytes # (Auto) 0.9x10^3/uL (0.0-1.1) Eosinophils # (Auto) 0.0x10^3/uL (0.0-0.7) Basophils # (Auto) 0.0x10^3/uL (0.0-0.2) Sodium Level 140mmol/L (136-145) Potassium Level 3.8mmol/L (3.5-5.1) Chloride Level 104mmol/L (98-107) Carbon Dioxide Level 27mmol/L (21-32) Anion Gap 9 (6-14) Blood Urea Nitrogen 14mg/dL (7-20) Creatinine 1.1mg/dL (0.6-1.0) Estimated GFR (Cockcroft-Gault) 62.2 Glucose Level 88mg/dL (70-99) Calcium Level 8.7mg/dL (8.5-10.1) Medications Active Scripts Medications Dose Route/Sig Days Date Category Proair Hfa Inhaler (Albuterol Sulfate) 8.5 Gm Hfa.aer.ad 2 Puff INH PRN DAILY PRN 09/23/16 Reported Pantoprazole Sodium 40 Mg Tablet.dr 1 Tab PO DAILY 09/23/16 Reported Coreg (Carvedilol) 12.5 Mg Tablet 1 Tab PO BID 09/23/16 Reported Aspir 81 (Aspirin) 81 Mg Tablet. 81 Mg PO 06/04/14 Reported Lasix (Furosemide) 20 Mg Tablet 40 Mg PO DAILY 06/04/[address] of chest reviewed, IMPRESSION: New pleural thickening or focal consolidative infiltrate of the posterior medial aspects of both lower lobes. This could represent infection or neoplasia or inflammatory disease such as focal consolidative interstitial pulmonary fibrosis (although there are no findings of honeycombing or interstitial pulmonary fibrosis elsewhere). There is groundglass lung infiltrate present within the inferior segment of the lingula which could represent atelectasis or alveolitis. Stable mediastinal lymphadenopathy. However, there is a new enlarged right axillary lymph node. This lymph node may represent a new manifestation of the mediastinal reactive lymphadenopathy is there is a history of sarcoidosis or granulomatous disease etc. Certainly lymphoma is a possibility if there is a clinical history of such. Another consideration would include abnormally enlarged lymph node related to breast malignancy. Therefore, recommend bilateral mammography and right axillary sonography. Chronic cardiomegaly with calcified atheromatous disease of the coronary arteries. Impression . 1. 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 Hypotension resolved 3. History of SEC pulm HTN I reviewed the records 4. AECOPD 5. ABN CT of chest pt given a copy of report to follow up with Dr. Booth 6. Acute non specific bronchitis Plan . d/c home follow up at pt has Appt on October 22 taper pred antibx 6 min walk prior to d/c Pt given a copy of CT Report to follow up at for new adenopathy MEKHI LAINEZ MD Sep 28, 2016 12:08
[2016-09-28] MEDS ORDERED: CARV6.25 PO ×2 (12:34→12:35)
--- NOTE | 2016-09-28 13:21 | PDOC3 ---
Discharge Summary [facility] Date of Admission: Sep 23, 2016 Discharge Date: Sep 28, 2016 Admitting Diagnosis 1. Acute Respiratory Distress on Chronic Hypoxic Failure 2. COPD 3. Pulmonary HTN 4. HTN 5. Hyperlipidemia 6. CHF 7. CKD 3 8. Anemia of Chronic Disease 9. elevated troponin due to hypoxia 10. right axillary lymphnode Problems: Final Diagnosis Problems Medical Problems: (1) COPD exacerbation Status: Acute (2) Pneumonia Status: Acute CONSULTS pulm, card Brief Hospital Course Ms. Harris is a 56 old F, severe PHTN, home o2 4-6l, COMes for sob, was treated with doxy, levaquin ,bipap. pT FEEls better, dc home, fu with ku for PHTN. told pt to fu with PCP for mammagram, and CT found a right axillary lymphnode fu with PCP. pt has not had mamagram done for 2 years. dc home with doxy, and taper steroid. 6min walk pending dc tiem 35min. General: Alert, Oriented X3, Cooperative, mild distress Heart: Regular rate, Normal S1, Normal S2, Other Lungs: Cbl mild Crackles r Abdomen: Soft, No tenderness Extremities: Normal pulses, Other Skin: No breakdown, No significant lesion Problems: Disposition home CONDITION AT DISCHARGE: Improved Diet regular Scheduled ([adempas]) 2 MG PO BID (Reported) Ambrisentan (Letairis) 10 MG PO DAILY (Reported) Carvedilol (Coreg) 1 TAB PO BID (Reported) Carvedilol (Coreg) 1 TAB PO BID (Reported) Carvedilol (Coreg) 1 TAB PO BID (Reported) Furosemide (Lasix) 40 MG PO DAILY (Reported) Pantoprazole Sodium (Pantoprazole Sodium) 1 TAB PO DAILY (Reported) Scheduled PRN Albuterol Sulfate (Proair Hfa Inhaler) 2 PUFF INH PRN DAILY PRN PRN SHORTNESS OF BREATH (Reported) Miscellaneous Medications Aspirin (Aspir 81) 81 MG PO (Reported) Discontinued Medications Nebivolol Hcl (Bystolic) 20 MG PO (Reported) Follow Up pcp and [facility] in 2 weeks TRAVON ECHEVARRIA MD Sep 28, 2016 13:21
[2016-09-28] MEDS ORDERED: CARVEDILOL 6.25 MG TABLET PO SCH (17:00)
== END 2016-09-28 13:30 | disposition home or self-care (01) | DRG 871 ==
LOC: ER 19:33 → 6 SOUTH 21:05 → ER 21:58 → 1 WEST ICU 09-24 08:26
PROVIDERS: ADMIT Internal Medicine; ATTEND Internal Medicine
PROC: 5A09457 Assistance with Respiratory Ventilation, 24-96 Consecutive Hours, Continuous Positive Airway Pressure (ICD-10-PCS; principal; 2016-09-25)
DX: A41.9 Sepsis, unspecified organism (principal); J96.21 Acute and chronic respiratory failure with hypoxia; I50.33 Acute on chronic diastolic (congestive) heart failure; J12.9 Viral pneumonia, unspecified; E44.1 Mild protein-calorie malnutrition; I13.0 Hypertensive heart and chronic kidney disease with heart failure and stage 1 through stage 4 chronic kidney disease, or unspecified chronic kidney disease; I27.0 Primary pulmonary hypertension; J44.1 Chronic obstructive pulmonary disease with (acute) exacerbation; J44.0 Chronic obstructive pulmonary disease with (acute) lower respiratory infection; E66.9 Obesity, unspecified; D63.1 Anemia in chronic kidney disease; E78.5 Hyperlipidemia, unspecified; M34.9 Systemic sclerosis, unspecified; F32.9 Major depressive disorder, single episode, unspecified; F41.9 Anxiety disorder, unspecified; N18.3 Chronic kidney disease, stage 3 (moderate); R74.8 Abnormal levels of other serum enzymes; M19.90 Unspecified osteoarthritis, unspecified site; Z68.27 Body mass index [BMI] 27.0-27.9, adult; Z82.49 Family history of ischemic heart disease and other diseases of the circulatory system; Z79.899 Other long term (current) drug therapy; Z87.891 Personal history of nicotine dependence; Z99.81 Dependence on supplemental oxygen
CPT/HCPCS: 36415; 36600; 71010; 71250; 80048; 80053; 80061; 82805; 83540; 83550; 83605; 83735; 83880; 84484; 85007; 85027; 87040; 87641; 87804; 90686; 90732; 93005; 93306; 94620; 94640; 94644; 94660; 94760; 96365; 96375; J1650; J1956; J2930; J7030; J7040; J7512; J7620; 99285-25

== ENCOUNTER 2017-10-08 15:07 | Emergency (ER) | payer MEDICARE, OTHER ==
[2017-10-08] MEDS: IPRATRPIUM/ALBUTEROL 0.5/2.5MG 3 ML NEBU. NEB (15:22)
[2017-10-08 15:42] LABS: BASO # 0.2 x10^3/uL (0.0-0.2); BASO % 2 % (0-3); EOS % 1 % (0-3); HEMATOCRIT 31.9 % (36.0-47.0); LYMPH # 1.4 x10^3/uL (1.0-4.8); LYMPH % 18 % (24-48); MEAN CORPUSCULAR HEMOGLOBIN 20 pg (25-35); MEAN CORPUSCULAR HGB CONC 28 g/dL (31-37); MEAN CORPUSCULAR VOLUME 71 fL (79-100); MONO # 0.7 x10^3/uL (0.0-1.1); MONO % 10 % (0-9); NEUT # 5.4 x10^3uL (1.8-7.7); NEUT % 70 % (31-73); PLATELET COUNT 260 x10^3/uL (140-400); RED BLOOD COUNT 4.48 x10^6/uL (3.50-5.40); RED CELL DISTRIBUTION WIDTH 18.8 % (11.5-14.5); WHITE BLOOD COUNT 7.7 x10^3/uL (4.0-11.0)
[2017-10-08 15:47] LABS: ADD MAN DIFF? YES; ANION GAP 11 (6-14); BLOOD UREA NITROGEN 13 mg/dL (7-20); CALCIUM 8.7 mg/dL (8.5-10.1); CARBON DIOXIDE 26 mmol/L (21-32); CHLORIDE 104 mmol/L (98-107); CREATININE 1.4 mg/dL (0.6-1.0); GFR 46.9; GLUCOSE 109 mg/dL (70-99); POTASSIUM 3.7 mmol/L (3.5-5.1); SODIUM 141 mmol/L (136-145)
[2017-10-08 15:53] LABS: ALBUMIN 3.3 g/dL (3.4-5.0); ALK PHOS 99 U/L (46-116); ALT (SGPT) 8 U/L (14-59); AST (SGOT) 14 U/L (15-37); DIRECT BILIRUBIN 0.2 mg/dL (0.0-0.2); LIPASE 115 U/L (73-393); TOTAL BILIRUBIN 0.6 mg/dL (0.2-1.0); TOTAL PROTEIN 7.8 g/dL (6.4-8.2)
[2017-10-08 15:54] LABS: TROPONINI 0.023 ng/mL (0.000-0.055)
[2017-10-08 15:59] LABS: NT-PRO BNP 6237 pg/mL (0-124)
[2017-10-08] MEDS: FUROSEMIDE 40 MG TABLET. PO (16:09)
[2017-10-08 16:55] LABS: % BASOS 1 % (0-3); % EOS 1 % (0-5); % LYMPHS 26 % (24-48); % MONOS 6 % (0-10); % SEGS 66 % (35-66)
[2017-10-08 16:58] LABS: ANISOCYTOSIS MOD; MICROCYTOSIS MOD; OVALOCYTES FEW
[2017-10-08 16:59] LABS: HYPOCHROMIA MOD
[2017-10-08 17:00] LABS: PLT ESTIMATE ADEQUATE (ADEQUATE); POIKILOCYTOSIS SLIGHT
== END 2017-10-08 20:14 | disposition short-term general hospital (02) ==
LOC: ER 15:07
DX: I27.20 Pulmonary hypertension, unspecified (principal); R09.02 Hypoxemia; I50.9 Heart failure, unspecified; J44.9 Chronic obstructive pulmonary disease, unspecified; J81.1 Chronic pulmonary edema
CPT/HCPCS: 36415; 71045; 80048; 80076; 83690; 83880; 84484; 85007; 85025; 93005; 94640; 96365; 99285-25; J1956; J7620